=== PATIENT | male | born 1980 | race Hispanic/Latino ===

== ENCOUNTER 2018-04-03 06:55 | Day surgery (SDC) | payer OTHER ==
--- OUTSIDE RECORDS SUMMARY | 2018-04-03 06:58 | XMS REPORT ---
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
--- OUTSIDE RECORDS SUMMARY | 2018-04-03 06:58 | XMS REPORT ---
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
--- OUTSIDE RECORDS SUMMARY | 2018-04-03 06:58 | XMS REPORT ---
:1980 Author Organization eClinicalWorks Care Team Providers Name Role Phone Omar Nash Provider Role Unavailable Allergies, Adverse Reactions, Alerts Substance Reaction Event Type N.K.D.A. 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 pylori] as B96.81 Active the cause of diseases classified elsewhere Medications Medication Code Code Instructions Start End Status Dosage System Date Date Amoxicillin ND 61406099042 500 MG Orally Mar 21, Apr 04, Active 2 tablet twice daily 2017 2017 Omeprazole NDC 32391379160 20 MG Orally Mar 21, Active 1 capsule twice daily 2017 Clarithromycin ND 27560631269 500 MG Orally Mar 21Apr 04, Active 1 tablet once daily 2017 2017 Results No Known Results Summary Purpose eClinicalWorks Submission
--- OUTSIDE RECORDS SUMMARY | 2018-04-03 06:58 | XMS REPORT ---
:1980 Author Organization eClinicalWorks Care Team Providers Name Role Phone Hicks, [facility], [facility] Provider Role Unavailable Allergies, Adverse Reactions, Alerts Substance Reaction Event Type N.K.D.A. 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
--- OUTSIDE RECORDS SUMMARY | 2018-04-03 06:58 | XMS REPORT ---
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
--- OUTSIDE RECORDS SUMMARY | 2018-04-03 06:58 | XMS REPORT ---
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
--- OUTSIDE RECORDS SUMMARY | 2018-04-03 06:58 | XMS REPORT ---
:1980 Author Organization eClinicalWorks Care Team Providers Name Role Phone Omar Nash Provider Role Unavailable Allergies, Adverse Reactions, Alerts Substance Reaction Event Type N.K.D.A. 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
[2018-04-03] MEDS ORDERED: FENTANYL CITR 100 MCG/2 ML ONE (07:19)
[2018-04-03] MEDS ORDERED: MIDAZOLAM HCL 2 MG/2 ML INJ ONE (07:19)
[2018-04-03] MEDS ORDERED: PROPOFOL 200 MG/20 ML VIAL IV ONE (07:19)
[2018-04-03] MEDS ORDERED: Ringers Lactate 1,000 ML IV ONE ×2 (07:19→09:33)
[2018-04-03] MEDS ORDERED: CEFAZOLIN/SWI 1gm 1 GM/10 ML SYR ONE (07:20)
[2018-04-03] MEDS ORDERED: ROCURONIUM 50 MG/5 ML VIAL IV ONE (07:20)
[2018-04-03] MEDS ORDERED: LIDOCAINE 2% MPF 5 ML VIAL ONE (07:20)
[2018-04-03] MEDS: BUPIVACA 0.5%/EPI 0.0005%/PF 30 ML VIAL ONE ×2 (07:28→08:47)
[2018-04-03] MEDS ORDERED: DEXAMETHASONE 10 MG/ML VIAL ONE (08:48)
[2018-04-03] MEDS ORDERED: ONDANSETRON HCL 40 MG/20 ML VIAL ONE (08:49)
[2018-04-03] MEDS ORDERED: MORPHINE 10 MG/ML VIAL ONE (09:15)
[2018-04-03] MEDS ORDERED: NS 0.9% VIAL 10 ML ONE ×2 (09:15→09:48)
[2018-04-03] MEDS ORDERED: Phenylephrine HCl 10 MG/ML 1 ML VIAL ONE (09:48)
--- NOTE | 2018-04-03 10:34 | P.OP ---
Sausage Wrapper: NICOLE LARES Preoperative diagnosis: LEFT intra-Trapezius Lipoma 9x5 cm Postoperative diagnosis: LEFT intra-Trapezius Lipoma Primary procedure: Excisoin of LEFT intra-Trapezius Lipoma Anesthesia: GETA+ Local Estimated blood loss: <10cc Specimen: Lipomatous Tissue Findings: Mass was within the substance of the musle Complications: None Drain(s): ELMIRA drain Transferred to: Recovery Room Condition: Good
[2018-04-03] MEDS ORDERED: MEPERIDINE HCL 50 MG/ML AMP ONE (11:39)
--- NOTE | 2018-04-03 12:46 | OP ---
Date of Procedure: 04/03/2018 Surgeon: Omar Nash MD, Preoperative Diagnosis: Left intra-trapezius lipoma, approximately 9 cm x 5 cm. Postoperative Diagnosis: Left intra-trapezius lipoma, approximately 9 cm x 5 cm. Procedure Performed: Excision of left intra-trapezius lipoma. Anesthesia: General endotracheal plus local with 0.25% Marcaine. Estimated Blood Loss: Less than 10 cc. Specimen: Lipomatous tissue as described above. Findings: Mass within the substance of the muscle. Complications: None. Drain: 10-Kyrgyz round ELMIRA drain placed. Disposition: Transferred to recovery room in good condition. Procedure In Detail: After informed consent was obtained, patient was brought to the operating room, prepped and draped in the usual sterile fashion. After adequate anesthesia was achieved, an approxi mately 8.5 cm incision was made over the area of the left upper trapezius area, dissected down throug h the subcutaneous tissues with electrocautery to the external lipomatous tissue. This was removed t o expose the muscular layer in its entirety in the trapezius distribution. I then made an incision a fter the muscle fascicles down to the layer of the lipomatous tissue on the inferior aspec t of the trapezius muscle near the insertion of the trapezius at the rib level. I stayed out of the fascial plane and into the substance of the muscle at this time. I then dissected digitally around t he lipoma, which was into the substance of the trapezius muscle. After I circumferentially dissected this tissue, I was careful to protect the nerves as I approached from the inferior aspect of the tra pezius. The cutaneous branches from the dorsal rami C4-T6 were bluntly dissected free from this area . I dissected inferior to superior circumferentially digitally and broke up any connections into the soft tissue under direct visualization. The nerves were spared and the muscle continued to contract throughout the procedure. After the lipomatous tissue was circumferentially dissected, it was deliv ered through the inferior incision, which was approximately 1.5 cm to 2 cm in length on the inferior aspect of the trapezius muscle. I then delivered the lipomatous tissue through this and bluntly diss ected the remaining soft tissue attachments to the muscular layer deep to this until completely freed . I did this bluntly throughout the procedure with no undue dissection. The mass came out was sent off for pathologic examination. I then inspected the area for hemostasis. Electrocautery was used g ently on the posterior aspect of the trapezius muscle, and the area was copiously irrigated multiple times until completely dry. I then placed a 10-Kyrgyz round EL[place]A drain through this infra-muscular cara ne and passed it out through the incision and made a separate stab incision inferior to this to bring the drain out. It was secured to the skin using a 2-0 nylon suture and the drain was in the deep mu scular plane and the latissimus pockets. I irrigated the area once again and inspected the area for hemostasis, which was achieved. I then closed the muscular defect, closing the fascial plane over th e latissimus using a running 2-0 Vicryl suture with good approximation of the tissues. I then reappr oximated the subcutaneous layers with a 3-0 Vicryl in an interrupted fashion and closed the skin with interrupted paras after irrigating the area once again. A pressure dressing was then placed over the top of this and the bow was hooked up. The patient tolerated the procedure well without evidence of complication and transferred to the PACU in good condition. All counts were correct at the end o f the case. FAYE/RYAN Voice ID: [id number] Report ID: [id number]
== END 2018-04-03 13:30 | disposition home or self-care (01) ==
LOC: OR 06:55
PROVIDERS: ATTEND Surgery
PROC: 0KBG0ZZ Excision of Left Trunk Muscle, Open Approach (ICD-10-PCS; principal; 2018-04-03 08:30)
DX: D17.9 Benign lipomatous neoplasm, unspecified (principal)
CPT/HCPCS: 21933; 88305; J0690; J1100; J2175; J2250; J2370; J2405; J3010; 88304

== ENCOUNTER 2018-10-09 09:00 | Emergency (ER) | payer OTHER ==
--- OUTSIDE RECORDS SUMMARY | 2018-10-09 09:10 | XMS REPORT ---
:1980 Author Organization eClinicalWorks Care Team Providers Name Role Phone Hicks, [facility] Provider Role Unavailable Allergies, Adverse Reactions, Alerts [...]
--- OUTSIDE RECORDS SUMMARY | 2018-10-09 09:10 | XMS REPORT ---
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
--- OUTSIDE RECORDS SUMMARY | 2018-10-09 09:10 | XMS REPORT ---
[...] Status Dosage System Date Date Amoxicillin ND 75676674019 500 MG Orally Mar 21, Apr 04, Active 2 tablet twice daily 2017 2017 Omeprazole NDC 18147477840 20 MG Orally Mar 21, Active 1 capsule twice daily 2017 Clarithromycin ND 93229503148 500 MG Orally Mar 21Apr 04, Active 1 tablet once daily 2017 2017 Results No Known Results Summary Purpose eClinicalWorks Submission
[2018-10-09 10:12] LABS: Absolute Lymphocytes (CBC) 0.7 K/uL (0.7-4.9); Absolute Monocytes 0.4 K/uL (0.1-1.3); Absolute Neutrophil 6.4 K/uL (1.8-8.0); Basophils % 0.3 % (0-1.3); Eosinophils % 0.1 % (0-4.4); Hematocrit 45.6 % (39.6-49.0); Lymphocytes % 9.1 % (15.3-44.8); MPV 8.7 fL (7.6-11.3); Monocytes % 5.1 % (3.3-12.3); RBC Red Blood Cell Count 5.13 M/uL (4.33-5.43)
--- NOTE | 2018-10-09 10:25 | RAD REPORT ---
EXAM DESCRIPTION: CT - Stone Protocol - 10/09/2018 10:06 am CLINICAL HISTORY: Abdominal pain. Right sided pain with vomiting COMPARISON: November 2017 TECHNIQUE: Computed axial tomography of the abdomen pelvis was obtained without oral or IV contrast. Lack of IV and oral contrast limits evaluation of solid organs, bowel, and vessels. Coronal reformat yasmine images were obtained and reviewed. All CT scans are performed using dose optimization technique as appropriate and may include automated exposure control or mA/KV adjustment according to patient size. FINDINGS: A renal calculus is not seen. An ureteral calculus is not noted. A bladder calculus is not present. Fatty liver The Spleen, pancreas and adrenals appear grossly normal There is no evidence of diverticulitis. An abnormal appendix is not visualized Small right inguinal hernia contains fat. Prostate gland appears borderline enlarged IMPRESSION: Negative for a genitourinary calculus
[2018-10-09 10:26] LABS: Albumin 4.2 g/dL (3.4-5.0); Bilirubin Direct 0.2 mg/dL (0-0.2); Bilirubin Total 0.7 mg/dL (0.2-1.0); Potassium 4.1 mmol/L (3.5-5.1); Protein, Total 7.9 g/dL (6.4-8.2)
[2018-10-09] MEDS ORDERED: MEPERIDINE HCL 25 MG/0.5 ML ONE (10:45)
--- NOTE | 2018-10-09 10:45 | RAD REPORT ---
EXAM DESCRIPTION: US - Abdomen Exam Limited - 10/09/2018 10:37 am CLINICAL HISTORY: Abdominal pain. COMPARISON: None. FINDINGS: The gallbladder wall is not thickened. A gallstone is not seen. The biliary tree is normal caliber. Fatty liver IMPRESSION: Unremarkable gallbladder ultrasound.
[2018-10-09] MEDS ORDERED: ONDANSETRON 4 MG/2 ML VIAL ONE (10:46)
[2018-10-09 10:56] LABS: Urine Blood 2+ (NEG); Urine Glucose NEGATIVE (NEG); Urine Protein TRACE (NEG); Urine Specific Gravity 1.025 (1.005-1.030); Urine pH 5.5 (5.0-7.0)
[2018-10-09 11:24] LABS: Blood Morphology Comment NOT SEEN (NOT SEEN); Platelet Estimate ADEQ; Urine White Blood Cell Casts OK
--- NOTE | 2018-10-09 11:54 | RAD REPORT ---
EXAM DESCRIPTION: Laz Single View10/09/2018 11:36 am CLINICAL HISTORY: Cough COMPARISON: none FINDINGS: The lungs appear clear of acute infiltrate. The heart is borderline enlarged IMPRESSION: No acute abnormalities displayed
--- NOTE | 2018-10-09 11:59 | EDPHYS ---
Physician Documentation [facility] Name: Wanda Wise Age: 38 yrs Sex: Male : 1980 Arrival Date: 10/09/2018 Time: 09:04 Bed 14 Private MD: ED Physician Kt Aguayo HPI: 10/09 09:52 This 38 yrs old Male presents to ER via Ambulatory with complaints of Side rn Pain. 09:52 The patient complains of pain in the right mid back. The pain radiates to the abdomen. rn Onset: The symptoms/episode began/occurred this morning. Modifying factors: The symptoms are alleviated by nothing. the symptoms are aggravated by nothing. Severity of pain: At its worst the pain was moderate in the emergency department the pain has improved. The patient has experienced a previous episode. Reports woke up with right flank pain, radiates to right groin, + nausea and vomiting, + coughing, no fever or trauma. Has had kidney stone before. + difficulty urinating.. Historical: - Allergies: 09:26 No Known Allergies; hb - Home Meds: 09:26 None [Active]; hb - PMHx: 09:26 Kidney stones; Hearing Impaired; hb - PSHx: 09:26 None; hb - Immunization history:: Adult Immunizations up to date. - Social history:: Smoking status: Patient/guardian denies using tobacco. - Ebola Screening: : No symptoms or risks identified at this time. - Family history:: not pertinent. - Hospitalizations: : No recent hospitalization is reported. ROS: 09:52 Constitutional: Negative for fever, chills, and weight loss, Eyes: Negative for injury, rn pain, redness, and discharge, Cardiovascular: Negative for chest pain, palpitations, and edema, Respiratory: + cough, negative for sob Abdomen/GI: Negative for diarrhea, and constipation, + nausea/vomiting/abd pain Back: + right flank pain, no injury MS/Extremity: Negative for injury and deformity, Skin: Negative for injury, rash, and discoloration, Neuro: Negative for headache, weakness, numbness, tingling, and seizure. Exam: 09:52 Constitutional: This is a well developed, well nourished patient who is awake, alert, rn holding right side of abdomen, sitting upright Head/Face: Normocephalic, atraumatic. Eyes: Pupils equal round and reactive to light, extra-ocular motions intact. Lids and lashes normal. Conjunctiva and sclera are non-icteric and not injected. Cornea within normal limits. Periorbital areas with no swelling, redness, or edema. ENT: MMM Respiratory: No increased work of breathing, no retractions or nasal flaring. Abdomen/GI: soft, mild RUQ tenderness and right flank tenderness Back: No spinal tenderness. No costovertebral tenderness. MS/ Extremity: Pulses equal, no cyanosis. Neurovascular intact. Full, normal range of motion. Equal circumference. Neuro: Awake and alert, Motor strength 5/5 in all extremities. Sensory grossly intact. Cerebellar exam normal. Vital Signs: 09:24 BP 122 / 73; Pulse 81; Resp 16; Temp 98.7; Pulse Ox 97% on R/A; Pain 8/10; hb 10:39 BP 121 / 86; Pulse 76; Resp 16; Pulse Ox 97% ; rb1 11:27 BP 122 / 78; Pulse 62; Resp 15; Pulse Ox 97% on R/A; Pain 6/10; rb1 MDM: 09:18 Patient medically screened. rn 11:57 Differential diagnosis: nephrolithiasis, UTI. Data reviewed: vital signs, nurses notes, turn operator test result(s), radiologic studies, CT scan, plain films, ultrasound, and as a result, I will discharge patient. Counseling: I had a detailed discussion with the patient and/or guardian regarding: the historical points, exam findings, and any diagnostic results supporting the discharge/admit diagnosis, lab results, radiology results, the need for outpatient follow up, to return to the emergency department if symptoms worsen or persist or if there are any questions or concerns that arise at home. Response to treatment: the patient's symptoms have markedly improved after treatment, and as a result, I will discharge patient. Special discussion: I discussed with the patient/guardian in detail that at this point there is no indication for admission to the hospital. It is understood, however, that if the symptoms persist or worsen the patient needs to return immediately for re-evaluation. ED course: Pt improved, states noticed small black rock when urinating most recently, + hematuria but negative for stone, most likely passed a stone. . 10/09 09:34 Order name: Basic Metabolic Panel; Complete Time: 11:21 rn 10/09 09:34 Order name: CBC with Diff; Complete Time: 11:52 rn 10/09 09:34 Order name: Hepatic Function; Complete Time: 11:21 rn 10/09 09:34 Order name: Lipase; Complete Time: 11:21 rn 10/09 10:14 Order name: CBC Smear Scan; Complete Time: 11:52 EDMS 10/09 10:42 Order name: Urine Dipstick--Ancillary (enter results); Complete Time: 11:21 hb 10/09 09:34 Order name: IV Saline Lock; Complete Time: 10:22 rn 10/09 09:34 Order name: Labs collected and sent; Complete Time: 10:22 rn 10/09 09:34 Order name: CT Stone Protocol; Complete Time: 11:21 rn 10/09 09:34 Order name: XRAY Chest (1 view); Complete Time: 11:57 rn 10/09 09:34 Order name: US Abdomen Limited; Complete Time: 11:21 rn Administered Medications: 10:38 Drug: Zofran 4 mg Route: IVP; Site: right antecubital; rb1 10:57 Follow up: Response: No adverse reaction rb1 10:38 Drug: Demerol 25 mg Route: IVP; Site: right antecubital; rb1 10:57 Follow up: Response: No adverse reaction; Pain is decreased rb1 Disposition: 10/09/18 11:58 Discharged to Home. Impression: Ureterolithiasis. - Condition is Stable. - Discharge Instructions: Kidney Stones, Dietary Guidelines to Help Prevent Kidney Stones. - Medication Reconciliation Form, Thank You Letter, Antibiotic Education, Prescription Opioid Use form. - Follow up: Private Physician; When: As needed; Reason: Recheck today's complaints, Re-evaluation by your physician. - Problem is new. - Symptoms have improved. Signatures: Dispatcher [employer] [facility] Kt Aguayo MD MD rn Barber, Rebecca RN RN rb1 Love Escobedo RN RN Corrections: (The following items were deleted from the chart) 12:03 11:58 10/09/2018 11:58 Discharged to Home. Impression: Ureterolithiasis. Condition is rb1 Stable. Forms are Medication Reconciliation Form, Thank You Letter, Antibiotic Education, Prescription Opioid Use. Follow up: Private Physician; When: As needed; Reason: Recheck today's complaints, Re-evaluation by your physician. Problem is new. Symptoms have improved. rn
--- NOTE | 2018-10-09 11:59 | ER ---
Nurse's Notes [facility] Name: Wanda Wise Age: 38 yrs Sex: Male : 1980 Arrival Date: 10/09/2018 Time: 09:04 Bed 14 Private MD: Diagnosis: Ureterolithiasis Presentation: 10/09 09:23 Presenting complaint: RUQ pain that radiates to right groin, nonproductive cough, and hb N/V since this morning. Not tolerating fluids. Transition of care: patient was not received from another setting of care. Onset of symptoms was October 09, 2018. Risk Assessment: Do you want to hurt yourself or someone else? Patient reports no desire to harm self or others. Care prior to arrival: None. :23 Method Of Arrival: Ambulatory 09:23 Acuity: AALIYAH 3 hb 09:25 Initial Sepsis Screen: Does the patient meet any 2 criteria? No. Patient's initial rb1 sepsis screen is negative. Does the patient have a suspected source of infection? No. Patient's initial sepsis screen is negative. Historical: - Allergies: 09:26 No Known Allergies; hb - Home Meds: 09:26 None [Active]; hb - PMHx: 09:26 Kidney stones; Hearing Impaired; hb - PSHx: 09:26 None; hb - Immunization history:: Adult Immunizations up to date. - Social history:: Smoking status: Patient/guardian denies using tobacco. - Ebola Screening: : No symptoms or risks identified at this time. - Family history:: not pertinent. - Hospitalizations: : No recent hospitalization is reported. Screenin:25 Abuse screen: Denies threats or abuse. Nutritional screening: Difficulty to hold fluids rb1 down. Tuberculosis screening: No symptoms or risk factors identified. Fall Risk None identified. Assessment: 09:25 General: Appears uncomfortable, Behavior is calm, cooperative, Denies fever. Pain: rb1 Complains of pain in right upper quadrant Pain radiates to right groin Pain currently is 7 out of 10 on a pain scale. Neuro: Level of Consciousness is awake, alert, obeys commands, Oriented to person, place, time, situation. Cardiovascular: Capillary refill < 3 seconds is brisk in bilateral fingers. Respiratory: Airway is patent Respiratory effort is even, unlabored, Respiratory pattern is regular, symmetrical. Respiratory: Reports cough that is non-productive. GI: Reports nausea, vomiting. : No signs and/or symptoms were reported regarding the genitourinary system. EENT: Pt. is deaf.. Derm: Skin is pink, warm \T\ dry. 10:05 Reassessment: Pt. went to US. rb1 10:30 Reassessment: Patient appears in no apparent distress at this time. No changes from rb1 previously documented assessment. 11:29 Reassessment: Patient appears in no apparent distress at this time. Patient and/or rb1 family updated on plan of care and expected duration. Pain level reassessed. Patient is alert, oriented x 3, equal unlabored respirations, skin warm/dry/pink. 11:30 Reassessment: X-ray at bedside. rb1 11:55 Reassessment: Patient appears in no apparent distress at this time. No changes from rb1 previously documented assessment. Vital Signs: 09:24 BP 122 / 73; Pulse 81; Resp 16; Temp 98.7; Pulse Ox 97% on R/A; Pain 8/10; hb 10:39 BP 121 / 86; Pulse 76; Resp 16; Pulse Ox 97% ; rb1 11:27 BP 122 / 78; Pulse 62; Resp 15; Pulse Ox 97% on R/A; Pain 6/10; rb1 ED Course: 09:04 Patient arrived in ED. tw3 09:18 Kt Aguayo MD is Attending Physician. rn 09:24 Triage completed. hb 09:25 Patient has correct armband on for positive identification. Bed in low position. Call rb1 light in reach. Side rails up X 1. Pulse ox on. NIBP on. 09:26 Arm band placed on. hb 10:04 CT completed. Patient tolerated procedure well. Patient moved to CT via wheelchair. jg6 Patient moved back from CT. 10:07 CT Stone Protocol In Process Unspecified. EDMS 10:07 Oliva Bethea, RN is Primary Nurse. rb1 10:08 Inserted saline lock: 20 gauge in right antecubital area, using aseptic technique. rb1 ,using aseptic technique. IV inserted by Mary Ferguson. Blood collected. 10:26 Radiology exam delayed due to PT IN ULTRASOUND. jb2 10:37 US Abdomen Limited In Process Unspecified. EDMS 11:36 XRAY Chest (1 view) In Process Unspecified. EDMS 11:39 X-ray completed. Portable x-ray completed in exam room. Patient tolerated procedure sw well. 12:03 No provider procedures requiring assistance completed. IV discontinued, intact, rb1 bleeding controlled, No redness/swelling at site. Pressure dressing applied. Administered Medications: 10:38 Drug: Zofran 4 mg Route: IVP; Site: right antecubital; rb1 10:57 Follow up: Response: No adverse reaction rb1 10:38 Drug: Demerol 25 mg Route: IVP; Site: right antecubital; rb1 10:57 Follow up: Response: No adverse reaction; Pain is decreased rb1 Outcome: 11:58 Discharge ordered by . rn 12:03 Patient left the ED. rb1 12:03 Discharged to home ambulatory, with significant other. rb1 12:03 Condition: stable 12:03 Discharge instructions given to patient, Instructed on discharge instructions, follow up and referral plans. Demonstrated understanding of instructions, follow-up care, Prescriptions given X none Signatures: Dispatcher [employer] ED[facility] Brandyn Taylor jb2 Kt Aguayo MD MD rn Warren, Shannon sw Barber, Rebecca RN RN rb1 Love Escobedo RN RN michael Bennett, Sally tw3 Yesenia Shine6
== END 2018-10-09 12:03 | disposition home or self-care (01) ==
LOC: ER 09:00
DX: N20.1 Calculus of ureter (principal)
CPT/HCPCS: 85025; 80048; 36415; 80076; 81003; 83690; 76377; 74176; 71045; 76705; 96375; 96374; 99284; J2175; J2405

== ENCOUNTER 2019-10-02 21:05 | Emergency (ER) | payer OTHER ==
--- OUTSIDE RECORDS SUMMARY | 2019-10-02 21:12 | XMS REPORT ---
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 Problem Peptic ulcer, site unspecified, K27.9 Active unspecified as acute or chronic, without hemorrhage or perforation Assessment Need for influenza vaccination Z23 Active Medications Medication Code Code Instructions Start End Date Status Dosage System Date Omeprazole [facility] 53824938224 20 MG Orally Mar 21, Active 1 capsule twice daily 2017 Bacitracin [facility] [id number] 500 UNIT/GM Active APPLY SMALL STRIP ON LOWER EYELID OF AFFECTED EYE EVERY 4 HOURS Results No Known Results Immunizations Vaccine Administration Date Fluzone September 16, 2019 Summary Purpose eClinicalWorks Submission
--- OUTSIDE RECORDS SUMMARY | 2019-10-02 21:12 | XMS REPORT ---
:1980 Author Organization eClinicalWorks Care Team Providers Name Role Phone Enrique Hicks Provider Role Unavailable Allergies, Adverse Reactions, Alerts Substance Reaction Event Type N.K.D.A. 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 Problem Peptic ulcer, site unspecified, K27.9 Active unspecified as acute or chronic, without hemorrhage or perforation Assessment Hordeolum externum of right lower H00.012 Active eyelid Assessment Swelling of right lower eyelid H02.842 Active Medications Medication Code Code Instructions Start End Date Status Dosage System Date Bacitracin [facility] 56155419763 500 UNIT/GM Aug 25August Active 1 application Ophthalmic 2019 into the lower every 4 hours eyelid of affected eye (apply with 0.25-0.5 inch ribbon) Omeprazole [facility] [id number] 20 MG Orally Mar 21, Active 1 capsule twice daily 2017 Results No Known Results Summary Purpose eClinicalWorks Submission
[2019-10-02] MEDS ORDERED: NA CHLORIDE 0.9% 1,000 ML ONE (22:02)
[2019-10-02 22:25] LABS: Absolute Lymphocytes (CBC) 1.6 K/uL (0.7-4.9); Basophils % 0.6 % (0-1.3); Hematocrit 46.7 % (39.6-49.0); Lymphocytes % 25.1 % (15.3-44.8); MPV 9.4 fL (7.6-11.3); RBC Red Blood Cell Count 5.19 M/uL (4.33-5.43)
[2019-10-02 22:29] LABS: Urine Blood TRACE (NEG); Urine Glucose NEGATIVE (NEG); Urine Protein NEGATIVE (NEG); Urine Specific Gravity 1.025 (1.005-1.030); Urine pH 6.5 (5.0-7.0)
[2019-10-02 22:41] LABS: ALT/SGPT 87 U/L (12-78); AST/SGOT 34 U/L (15-37); Alkaline Phosphatase 102 U/L (45-117); BUN Blood Urea Nitrogen 11 mg/dL (7-18); Bicarbonate 27 mmol/L (21-32); Bilirubin Direct < 0.1 mg/dL (0-0.2); Bilirubin Total 0.4 mg/dL (0.2-1.0); Glucose Level 90 mg/dL (74-106); Lipase 112 U/L (73-393); Potassium 4.2 mmol/L (3.5-5.1); Protein, Total 7.9 g/dL (6.4-8.2); Sodium Level 140 mmol/L (136-145)
[2019-10-02] MEDS ORDERED: MORPHINE 2 MG/ML SYR ONE (23:37)
[2019-10-02] MEDS ORDERED: ONDANSETRON 4 MG/2 ML VIAL ONE (23:37)
[2019-10-02] MEDS ORDERED: FAMOTIDINE 20 MG/2 ML VIAL IV ONE (23:38)
--- NOTE | 2019-10-03 02:16 | ER ---
Nurse's Notes [facility] Name: Wanda Wise Age: 39 yrs Sex: Male : 1980 Arrival Date: 10/02/2019 Time: 21:09 Bed 27 Private MD: Diagnosis: Abdominal tenderness;Functional dyspepsia;Upper abdominal pain, unspecified Presentation: 10/01 21:50 Chief complaint: Patient states: Upper abdominal pain since today. Reports nausea and ca1 diarrhea, headache. Denies vomiting. Coronavirus screen: Patient denies fever greater than 100.4F, cough, shortness of breath, or difficulty breathing. Proceed with normal triage process. Ebola Screen: Patient negative for fever greater than or equal to 101.5 degrees Fahrenheit, and additional compatible Ebola Virus Disease symptoms Patient denies exposure to infectious person. Patient denies travel to an Ebola-affected area in the 21 days before illness onset. No symptoms or risks identified at this time. Initial Sepsis Screen: Does the patient meet any 2 criteria? No. Patient's initial sepsis screen is negative. Does the patient have a suspected source of infection? No. Patient's initial sepsis screen is negative. Risk Assessment: Do you want to hurt yourself or someone else? Patient reports no desire to harm self or others. Onset of symptoms was October 02, 2019. 21:50 Method Of Arrival: Ambulatory ca1 21:50 Acuity: AALIYAH 3 ca1 Historical: - Allergies: 21:53 No Known Allergies; ca1 - PMHx: 21:53 HEARING IMPAIRED; Kidney stones; ca1 - PSHx: 21:53 None; ca1 - Immunization history:: Adult Immunizations up to date, Flu vaccine is up to date. - Social history:: Smoking status: Patient denies any tobacco usage or history of. Screenin:30 Abuse screen: Denies threats or abuse. Denies injuries from another. Nutritional lp1 screening: No deficits noted. Tuberculosis screening: No symptoms or risk factors identified. Fall Risk None identified. Assessment: 22:00 General: Appears in no apparent distress. Behavior is calm, cooperative, appropriate lp1 for age. Pain: Complains of pain in right upper quadrant and left upper quadrant Pain currently is 6 out of 10 on a pain scale. Quality of pain is described as sharp. Neuro: Level of Consciousness is awake, alert, obeys commands, Oriented to person, place, time, situation. Cardiovascular: Patient's skin is warm and dry. Respiratory: Respiratory effort is even, unlabored. GI: Abdomen is non-distended, Bowel sounds present X 4 quads. Abdomen is tender to palpation in epigastric area and right upper quadrant Reports diarrhea. : No signs and/or symptoms were reported regarding the genitourinary system. EENT: No signs and/or symptoms were reported regarding the EENT system. Derm: Skin is pink, warm \T\ dry. Musculoskeletal: No deficits noted. 23:15 Reassessment: Patient tolerated drinking oral contrast at this time. lp1 10/02 00:00 Reassessment: Patient appears in no apparent distress at this time. Patient is alert, lp1 oriented x 3, equal unlabored respirations, skin warm/dry/pink. denies any acute pain at this time. 00:31 Reassessment: Patient to bathroom at this time. lp1 01:30 Reassessment: Patient appears in no apparent distress at this time. Patient is alert, lp1 oriented x 3, equal unlabored respirations, skin warm/dry/pink. Patient aware of waiting for CT results. 02:48 Reassessment: Patient appears in no apparent distress at this time. Patient is alert, lp1 oriented x 3, equal unlabored respirations, skin warm/dry/pink. Patient demonstrates understanding of medications prescribed and need for follow up. Vital Signs: 10/01 21:50 BP 135 / 73; Pulse 80; Resp 17 S; Temp 97.5(TE); Pulse Ox 99% on R/A; Weight 95 kg (R); ca1 Height 5 ft. 9 in. (175.26 cm) (R); 23:30 BP 134 / 79; Pulse 64; Resp 18; Pulse Ox 99% on R/A; lp1 10/02 00:31 BP 123 / 80; Pulse 76; Resp 16; Pulse Ox 100% on R/A; lp1 02:00 BP 122 / 78; Pulse 65; Resp 16; Pulse Ox 100% on R/A; lp1 10/01 21:50 Body Mass Index 30.93 (95.00 kg, 175.26 cm) ca1 ED Course: 10/01 21:09 Patient arrived in ED. ds1 21:39 Pierre Jack MD is Attending Physician. chetan 21:43 Ada Martins, ECHO is Primary Nurse. lp1 21:52 Triage completed. ca1 21:53 Arm band placed on right wrist. ca1 22:05 Initial lab(s) drawn, by me, sent to lab. Urine collected: clean catch specimen, clear. lp1 Inserted saline lock: 20 gauge in right antecubital area, using aseptic technique. Blood collected. 22:30 Patient has correct armband on for positive identification. Bed in low position. Call lp1 light in reach. Pulse ox on. NIBP on. 10/02 01:46 CT Abd/Pelvis - PO and IV Contrast In Process Unspecified. EDMS 02:16 Joseline Landry MD is Referral Physician. [facility] 02:47 No provider procedures requiring assistance completed. IV discontinued, No lp1 redness/swelling at site. Pressure dressing applied. Administered Medications: 10/01 22:05 Drug: NS 0.9% 1000 ml Route: IV; Rate: 1 bolus; Site: right antecubital; lp1 23:15 Follow up: IV Status: Completed infusion; IV Intake: 1000ml lp1 23:55 Drug: Pepcid 20 mg Route: IVP; Site: right antecubital; lp1 10/02 02:46 Follow up: Response: No adverse reaction lp1 02:46 Not Given (Hemodynamic Parameters; no pain at this time): morphine 2 mg IVP once; lp1 (PAIN>8) RASS on ADMN: Combtv4, Very Agttd3, Agttd2, Rstlss1, AlertClm0, Drwsy-1, LtSdtn-2, ModSdtn-3, DpSdtn-4, UnArsble-5 x2 02:46 Not Given (Other Intervention Used; no nausea): Zofran (Ondansetron) 4 mg IVP once; lp1 over 2 minutes Intake: 10/01 23:15 IV: 1000ml; Total: 1000ml. lp1 Outcome: 10/02 02:16 Discharge ordered by . chetan 02:47 Discharged to home ambulatory. lp1 02:47 Condition: good 02:47 Discharge instructions given to patient, Instructed on discharge instructions, follow up and referral plans. medication usage, Demonstrated understanding of instructions, follow-up care, medications, Prescriptions given X 3. 02:49 Patient left the ED. lp1 Signatures: Dispatcher [employer] Pierre Freedman MD MD cha Sanford, Demi ds1 Ada Martins RN RN lp1 Chasity Zhu RN RN ca1
--- NOTE | 2019-10-03 02:16 | EDPHYS ---
Physician Documentation [facility] Name: Wanda Wise Age: 39 yrs Sex: Male : 1980 Arrival Date: 10/02/2019 Time: 21:09 Bed 27 Private MD: VINI Physician Pierre Jack HPI: 10/01 23:08 This 39 yrs old Male presents to ER via Ambulatory with complaints of chetan Abdominal Pain, Headache. 23:08 The patient complains of pain to the forehead. The patient describes the headache as chetan aching. Onset: The symptoms/episode began/occurred just prior to arrival. Associated signs and symptoms: Pertinent positives: This patient does not have any pertinent positive signs or symptoms associated with a headache. Historical: - Allergies: 21:53 No Known Allergies; ca1 - PMHx: 21:53 HEARING IMPAIRED; Kidney stones; ca1 - PSHx: 21:53 None; ca1 - Immunization history:: Adult Immunizations up to date, Flu vaccine is up to date. - Social history:: Smoking status: Patient denies any tobacco usage or history of. ROS: 23:08 Constitutional: Negative for fever, chills, and weight loss, Eyes: Negative for injury, chetan pain, redness, and discharge, ENT: Negative for injury, pain, and discharge, Neck: Negative for injury, pain, and swelling, Cardiovascular: Negative for chest pain, palpitations, and edema, Respiratory: Negative for shortness of breath, cough, wheezing, and pleuritic chest pain, Back: Negative for injury and pain, : Negative for injury, bleeding, discharge, and swelling, MS/Extremity: Negative for injury and deformity, Skin: Negative for injury, rash, and discoloration, Neuro: Negative for headache, weakness, numbness, tingling, and seizure, Psych: Negative for depression, anxiety, suicide ideation, homicidal ideation, and hallucinations, Allergy/Immunology: Negative for hives, rash, and allergies, Endocrine: Negative for neck swelling, polydipsia, polyuria, polyphagia, and marked weight changes, Hematologic/Lymphatic: Negative for swollen nodes, abnormal bleeding, and unusual bruising. 23:08 Abdomen/GI: Positive for abdominal pain, of the epigastric area, right upper quadrant and left upper quadrant. Exam: 23:08 Constitutional: This is a well developed, well nourished patient who is awake, alert, chetan and in no acute distress. Head/Face: Normocephalic, atraumatic. Eyes: Pupils equal round and reactive to light, extra-ocular motions intact. Lids and lashes normal. Conjunctiva and sclera are non-icteric and not injected. Cornea within normal limits. Periorbital areas with no swelling, redness, or edema. ENT: Nares patent. No nasal discharge, no septal abnormalities noted. Tympanic membranes are normal and external auditory canals are clear. Oropharynx with no redness, swelling, or masses, exudates, or evidence of obstruction, uvula midline. Mucous membranes moist. Neck: Trachea midline, no thyromegaly or masses palpated, and no cervical lymphadenopathy. Supple, full range of motion without nuchal rigidity, or vertebral point tenderness. No Meningismus. Chest/axilla: Normal chest wall appearance and motion. Nontender with no deformity. No lesions are appreciated. Cardiovascular: Regular rate and rhythm with a normal S1 and S2. No gallops, murmurs, or rubs. Normal PMI, no JVD. No pulse deficits. Respiratory: Lungs have equal breath sounds bilaterally, clear to auscultation and percussion. No rales, rhonchi or wheezes noted. No increased work of breathing, no retractions or nasal flaring. Back: No spinal tenderness. No costovertebral tenderness. Full range of motion. Male : Normal genitalia with no discharge or lesions. Skin: Warm, dry with normal turgor. Normal color with no rashes, no lesions, and no evidence of cellulitis. MS/ Extremity: Pulses equal, no cyanosis. Neurovascular intact. Full, normal range of motion. Neuro: Awake and alert, GCS 15, oriented to person, place, time, and situation. Cranial nerves II-XII grossly intact. Motor strength 5/5 in all extremities. Sensory grossly intact. Cerebellar exam normal. Normal gait. Psych: Awake, alert, with orientation to person, place and time. Behavior, mood, and affect are within normal limits. 23:08 Abdomen/GI: Inspection: distension, Bowel sounds: normal, Palpation: mild abdominal tenderness, in the epigastric area, right upper quadrant and left upper quadrant, Liver: no appreciated palpable abnormalities, Hernia: not appreciated. Vital Signs: 21:50 BP 135 / 73; Pulse 80; Resp 17 S; Temp 97.5(TE); Pulse Ox 99% on R/A; Weight 95 kg (R); ca1 Height 5 ft. 9 in. (175.26 cm) (R); 23:30 BP 134 / 79; Pulse 64; Resp 18; Pulse Ox 99% on R/A; lp1 10/02 00:31 BP 123 / 80; Pulse 76; Resp 16; Pulse Ox 100% on R/A; lp1 02:00 BP 122 / 78; Pulse 65; Resp 16; Pulse Ox 100% on R/A; lp1 10/01 21:50 Body Mass Index 30.93 (95.00 kg, 175.26 cm) ca1 MDM: 10/01 21:39 Patient medically screened. [facility] 23:09 Data reviewed: vital signs, nurses notes, lab test result(s), EKG, radiologic studies, [facility] CT scan, plain films. 10/01 21:41 Order name: Basic Metabolic Panel; Complete Time: 23:06 [facility] 10/01 21:41 Order name: CBC with Diff; Complete Time: 23:06 [facility] 10/01 21:41 Order name: Creatinine for Radiology; Complete Time: 23:06 [facility] 10/01 21:41 Order name: Hepatic Function; Complete Time: 23:06 [facility] 10/01 21:41 Order name: Lipase; Complete Time: 23:06 [facility] 10/01 21:41 Order name: Urine Culture [facility] 10/01 21:41 Order name: IV Saline Lock; Complete Time: 22:13 [facility] 10/01 21:41 Order name: Labs collected and sent; Complete Time: 22:13 [facility] 10/01 22:20 Order name: Urine Dipstick--Ancillary (enter results); Complete Time: 23:06 2 10/01 23:07 Order name: CT Abd/Pelvis - PO and IV Contrast [facility] 10/01 21:41 Order name: Urine Dipstick-Ancillary (obtain specimen); Complete Time: 22:12 [facility] Administered Medications: 22:05 Drug: NS 0.9% 1000 ml Route: IV; Rate: 1 bolus; Site: right antecubital; lp1 23:15 Follow up: IV Status: Completed infusion; IV Intake: 1000ml 1 23:55 Drug: Pepcid 20 mg Route: IVP; Site: right antecubital; 1 10/02 02:46 Follow up: Response: No adverse reaction lp1 02:46 Not Given (Hemodynamic Parameters; no pain at this time): morphine 2 mg IVP once; lp1 (PAIN>8) RASS on ADMN: Combtv4, Very Agttd3, Agttd2, Rstlss1, AlertClm0, Drwsy-1, LtSdtn-2, ModSdtn-3, DpSdtn-4, UnArsble-5 x2 02:46 Not Given (Other Intervention Used; no nausea): Zofran (Ondansetron) 4 mg IVP once; lp1 over 2 minutes Disposition: 10/03/19 02:16 Discharged to Home. Impression: Abdominal tenderness, Functional dyspepsia, Upper abdominal pain, unspecified. - Condition is Stable. - Discharge Instructions: Abdominal Pain, Adult, Nausea and Vomiting, Adult, Abdominal Pain, Adult, [id number]-sg-[id number]. - Prescriptions for Bentyl 20 mg Oral Tablet - take 1 tablet by ORAL route every 6 hours As needed; 20 tablet. Pepcid 20 mg Oral Tablet - take 1 tablet by ORAL route every 12 hours for 10 days; 20 tablet. Zofran 4 mg Oral Tablet - take 1 tablet by ORAL route every 12 hours As needed; 20 tablet. - Medication Reconciliation Form, Thank You Letter, Antibiotic Education, Prescription Opioid Use form. - Follow up: Private Physician; When: 2 - 3 days; Reason: Recheck today's complaints, Continuance of care, Re-evaluation by your physician. [facility]; When: 2 - 3 days; Reason: Recheck today's complaints, Continuance of care, Re-evaluation by your physician. - Problem is new. - Symptoms have improved. Signatures: Dispatcher [employer] EDMS Pierre Jack MD MD cha Pena, Laura, RN RN lp1 Chasity Zhu RN RN ca1 Corrections: (The following items were deleted from the chart) 02:48 02:16 10/03/2019 02:16 Discharged to Home. Impression: Abdominal tenderness; Functional lp1 dyspepsia; Upper abdominal pain, unspecified. Condition is Stable. Discharge Instructions: Abdominal Pain, Adult, Nausea and Vomiting, Adult, Abdominal Pain, Adult, Pobe-sb-Lavr. Prescriptions for Bentyl 20 mg Oral Tablet - take 1 tablet by ORAL route every 6 hours As needed; 20 tablet, Pepcid 20 mg Oral Tablet - take 1 tablet by ORAL route every 12 hours for 10 days; 20 tablet, Zofran 4 mg Oral Tablet - take 1 tablet by ORAL route every 12 hours As needed; 20 tablet. and Forms are Medication Reconciliation Form, Thank You Letter, Antibiotic Education, Prescription Opioid Use. Follow up: Private Physician; When: 2 - 3 days; Reason: Recheck today's complaints, Continuance of care, Re-evaluation by your physician. Follow up: Joseline Landry; When: 2 - 3 days; Reason: Recheck today's complaints, Continuance of care, Re-evaluation by your physician. Problem is new. Symptoms have improved. chetan
[2019-10-03 02:56] VITALS: TEMP 97.5
[2019-10-03 03:01] VITALS: O2SAT 100
[2019-10-03 03:04] VITALS: BP 122/78
--- NOTE | 2019-10-03 12:08 | RAD REPORT ---
EXAM DESCRIPTION: CT - Abdomen Pelvis W Contrast - 10/03/2019 1:46 am CLINICAL HISTORY: ABD PAIN COMPARISON: None. TECHNIQUE: CT ABDOMEN PELVIS WITH IV CONTRAST on 10/02/2019 11:07 PM CDT This exam was performed according to our departmental dose-optimization program, which includes autom ated exposure control, adjustment of the mA and/or kV according to patient size and/or use of iterati ve reconstruction technique. FINDINGS: Lower lungs are clear. Abdomen: Liver is fatty in attenuation. There is no biliary dilatation. Gallbladder is normal in appe arance. The pancreas and spleen are normal in appearance. The adrenal glands and kidneys are unremark able. Abdominal aorta is normal in course and caliber without aneurysm. There is no free air. There is no r etroperitoneal adenopathy. Pelvis: There is no bowel obstruction. Urinary bladder is unremarkable. There is no free fluid. There is a small fat-containing right inguinal hernia. Appendectomy was performed. Skeleton: There are no acute osseous findings. No suspicious bony lesions. IMPRESSION: No acute inflammatory process. Electronically signed by: Alf Yost MD 10/03/2019 1:50 AM CDT Due to temporary technical issues with the PACS/Fluency reporting system, reports are being signed by the in house radiologist as a courtesy to ensure prompt reporting. The interpreting radiologist is f meily responsible for the content of the report.
== END 2019-10-03 02:48 | disposition home or self-care (01) ==
LOC: ER 21:05
DX: K30 Functional dyspepsia (principal); R10.10 Upper abdominal pain, unspecified
CPT/HCPCS: 96361; 87088; 85025; 87086; 80048; 36415; 80076; 81003; 83690; 74177; 96374; 99284; Q9967; J7030; J2270; J2405

== ENCOUNTER 2020-03-07 04:11 | Emergency (ER) | payer OTHER ==
--- OUTSIDE RECORDS SUMMARY | 2020-03-07 04:26 | XMS REPORT | Continuity of Care Document ---
:[address] [facility] [place] [place] Address [address] [place] [address] Care Team Providers Name Role Phone Unavailable Unavailable Unavailable Problems Condition Condition Condition Status Onset Resolution Last Treating Co mments Source Name Details Category Date Date Treatment Clinician Date Deaf Deaf Problem Active [facility], [facility]ism, [facility] - acquired acquired [facility] Fatty Fatty Problem Active [facility] liver liver [facility] Peptic Peptic Problem Active [facility] ulcer, ulcer, [facility] - site site [facility] unspecifie unspecifie l d, d, Outpati unspecifie unspecifie en t d as acute d as acute Cl inics or or chronic, chronic, without without hemorrhage hemorrhage or or perforatio perforatio n n History of History of Problem Active [facility] 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 Allergies, Adverse Reactions, Alerts This patient has no known allergies or adverse reactions. Medications Ordered Filled Start Stop Current Ordering Indication Dosage Frequency Signature Comments Components Source Medication Medication Date Date Medication? Clinician (SIG) Name Name Permethrin Permethrin Yes Enrique [address] [facility]02 Hicks applicatio [facility] - 00:00: n from Memoria 00 neck down l to the Outpati soles of ent feet, wast Clinics off after 8-14 hours. May repeat in 10-14 days Triamcinolo Triamcinolo Yes Enrique [address] [facility] ne ne 5-13 Hicks applicatio [facility] - Acetonide Acetonide 00:00: n Mem oria 00 l Outpati ent Clinics Omeprazole Omeprazole 2018-0 Yes Enrique [address] [facility] 9[facility]21 Hicks [facility] - 00:[facility]: [facility]oria 00 l Outpati ent Clinics Bacitracin Bacitracin Yes Enrique APPLY [facility] SMALL [facility] - STRIP ON Memoria LOWER l EYELID OF Outpati AFFECTED ent EYE EVERY Clinics 4 HOURS Immunizations Ordered Filled Immunization Date Status Comments Sourc e Immunization Name Name Benjine Fluzone 2019-09-[address] [facility] - 00:[facility]00 [facility] Outpatient [facility] Procedures This patient has no known procedures. Encounters Start End Encounter Admission Attending Care Care Encounter Source Date/Time Date/Time Type Type Clinicians Facility Department ID 2019-12-01 2019-12-01 [facility] [id number] [facility] [address] 16:30:00 16:30:00 [facility] Medicine l Medicine Outpati ent Clinics 2019-11-11 2019-11-11 [facility] [id number] 14:30:00 14:30:00 [facility] Medicine l Medicine Outpati ent Clinics 2019-11-10 2019-11-10 [facility] [id number] 14:07:00 14:07:00 [facility] Medicine l Medicine Outpati ent Clinics 2019-10-28 2019-10-28 [facility] [id number] 14:30:00 14:30:00 [facility] Medicine l Medicine Outpati ent Clinics 2019-10-28 2019-10-28 [facility] [id number] 14:30:00 14:30:00 [facility] Medicine l Medicine Outpati ent Clinics 2019-09-16 2019-09-16 [facility] [id number] 13:30:00 13:30:00 [facility] Medicine l Medicine Outpati ent Clinics 2019-08-25 2019-08-25 [facility] [id number] 15:15:00 15:15:00 [facility] l Medicine Outpati ent Clinics 2018-03-25 2018-03-25 [facility] [id number] [address] 10:30:00 10:30:00 t Specialty/U Tanisha kes - Specialty rology Mem[facility] a /Urology Clinic l Clinic Outpati ent Clinics 2018-03-21 2018-03-21 [facility] [id number] [address] 11:16:00 11:16:00 t Specialty/U Tanisha kes - Specialty rology Memori a /Urology Clinic l Clinic Outpati ent Clinics 2018-03-20 2018-03-20 [facility] [id number] [address] 11:23:00 11:23:00 t Specialty/U Tanisha kes - Specialty rology Memori a /Urology Clinic l Clinic Outpati ent Clinics 2018-03-11 2018-03-11 [facility] [id number] [address] 09:45:00 09:45:00 t Specialty/U Tanisha kes - Specialty rology Memori a /Urology Clinic l Clinic Outpati ent Clinics 2018-02-28 2018-02-28 [facility] [id number] 09:30:00 09:30:00 t [employer] [facility] Family [facility] l Medicine Outpati ent Clinics 2017-12-12 2017-12-12 [facility] [id number] [address] 11:00:00 11:00:00 t [employer] [facility] Medicine Outpati ent Clinics 2017-10-31 2017-10-31 [facility] [id number] 13:30:00 13:30:00 t [employer] [facility] Medicine Outpati ent Clinics Results This patient has no known results.
[2020-03-07 04:59] LABS: Absolute Lymphocytes (CBC) 2.5 K/uL (0.7-4.9); Basophils % 0.7 % (0-1.3); Hematocrit 46.4 % (39.6-49.0); Lymphocytes % 34.3 % (15.3-44.8); MPV 9.1 fL (7.6-11.3); RBC Red Blood Cell Count 5.24 M/uL (4.33-5.43)
[2020-03-07 05:12] LABS: ALT/SGPT 93 U/L (12-78); AST/SGOT 35 U/L (15-37); Albumin 4.1 g/dL (3.4-5.0); Alkaline Phosphatase 108 U/L (45-117); BUN Blood Urea Nitrogen 12 mg/dL (7-18); Bicarbonate 28 mmol/L (21-32); Bilirubin Direct < 0.1 mg/dL (0-0.2); Bilirubin Total 0.4 mg/dL (0.2-1.0); Glucose Level 94 mg/dL (74-106); Lipase 111 U/L (73-393); Potassium 3.6 mmol/L (3.5-5.1); Protein, Total 8.1 g/dL (6.4-8.2); Sodium Level 139 mmol/L (136-145)
[2020-03-07] MEDS ORDERED: LIDOCAINE VISCOUS 2% SOLN 15 ML UDC ONE (05:12)
[2020-03-07] MEDS ORDERED: MAGNE/ALUM HYDROXD 30 ML UCUP ONE (05:12)
[2020-03-07] MEDS ORDERED: NA CHLORIDE 0.9% 1,000 ML ONE (05:12)
--- NOTE | 2020-03-07 05:18 | EDPHYS ---
Physician Documentation [facility] Name: Wanda Wise Age: 39 yrs Sex: Male : 1980 Arrival Date: 03/07/2020 Time: 04:14 Bed 8 Private MD: Vj Hicksh ED Physician Abel Edward HPI: 03/07 05:01 This 39 yrs old Male presents to ER via Ambulatory with complaints of Flank tw4 Pain, Abdominal Pain. 05:01 The patient presents with abdominal pain. Onset: The symptoms/episode began/occurred tw4 yesterday. The symptoms do not radiate. Associated signs and symptoms: none. The symptoms are described as crampy. Modifying factors: The symptoms are alleviated by nothing, the symptoms are aggravated by movement. The patient has not experienced similar symptoms in the past. Historical: - Allergies: 04:38 No Known Allergies; mt2 - PMHx: 04:38 HEARING IMPAIRED; Kidney stones; mt2 - Immunization history:: Adult Immunizations up to date. - Social history:: Smoking status: Patient denies any tobacco usage or history of. Patient uses alcohol, occasionally. ROS: 05:01 Constitutional: Negative for fever, chills, and weight loss, Eyes: Negative for injury, tw4 pain, redness, and discharge, Cardiovascular: Negative for chest pain, palpitations, and edema, Respiratory: Negative for shortness of breath, cough, wheezing, and pleuritic chest pain, Back: Negative for injury and pain, MS/Extremity: Negative for injury and deformity, Skin: Negative for injury, rash, and discoloration, Neuro: Negative for headache, weakness, numbness, tingling, and seizure. 05:01 Abdomen/GI: Positive for abdominal pain, Negative for nausea and vomiting, nausea, vomiting, and diarrhea, nausea, vomiting, abdominal cramps, abdominal distension, anorexia, dysphagia, hematemesis, black/tarry stool, rectal pain. Exam: 05:01 Constitutional: This is a well developed, well nourished patient who is awake, alert, tw4 and in no acute distress. Head/Face: Normocephalic, atraumatic. Chest/axilla: Normal chest wall appearance and motion. Nontender with no deformity. No lesions are appreciated. Cardiovascular: Regular rate and rhythm with a normal S1 and S2. No gallops, murmurs, or rubs. Normal PMI, no JVD. No pulse deficits. Respiratory: Lungs have equal breath sounds bilaterally, clear to auscultation and percussion. No rales, rhonchi or wheezes noted. No increased work of breathing, no retractions or nasal flaring. Back: No spinal tenderness. No costovertebral tenderness. Full range of motion. MS/ Extremity: Pulses equal, no cyanosis. Neurovascular intact. Full, normal range of motion. Neuro: Awake and alert, GCS 15, oriented to person, place, time, and situation. Cranial nerves II-XII grossly intact. Motor strength 5/5 in all extremities. Sensory grossly intact. Cerebellar exam normal. Normal gait. 05:01 Abdomen/GI: Inspection: abdomen appears normal, Bowel sounds: normal, Palpation: moderate abdominal tenderness, in the left upper quadrant. Vital Signs: 04:36 BP 133 / 99; Pulse 82; Resp 16; Temp 98.2(O); Pulse Ox 97% ; Weight 95.25 kg; Pain 8/10;mt2 05:37 BP 122 / 76; Pulse 79; Resp 16; Pulse Ox 99% ; Pain 0/10; mt2 MDM: 04:51 Patient medically screened. 4 05:01 Data reviewed: vital signs, nurses notes. Data interpreted: Pulse oximetry: tw4 Interpretation: normal. Counseling: I had a detailed discussion with the patient and/or guardian regarding: the historical points, exam findings, and any diagnostic results supporting the discharge/admit diagnosis. Special discussion: I discussed with the patient/guardian in detail that at this point there is no indication for admission to the hospital. It is understood, however, that if the symptoms persist or worsen the patient needs to return immediately for re-evaluation. 03/07 04:36 Order name: Basic Metabolic Panel; Complete Time: 05:14 mt2 03/07 05:14 Interpretation: Normal except: GFR 65. 03/07 04:36 Order name: CBC with Diff; Complete Time: 05:14 mt2 03/07 05:15 Interpretation: Within normal limits. 03/07 04:36 Order name: Hepatic Function; Complete Time: 05:14 mt2 03/07 05:15 Interpretation: Normal except: A/G 1.0; GLOB 4.0; ALT 93. 4 03/07 04:36 Order name: Lipase; Complete Time: 05:14 mt2 03/07 05:15 Interpretation: Within normal limits: LIP 111. [facility] 03/07 05:27 Order name: Urine Dipstick--Ancillary (enter results) [facility] 03/07 04:36 Order name: IV Saline Lock; Complete Time: 04:36 mt2 03/07 04:36 Order name: Labs collected and sent; Complete Time: 04:36 mt2 03/07 04:36 Order name: Urine Dipstick-Ancillary (obtain specimen); Complete Time: 05:26 mt2 Administered Medications: 05:02 Drug: GI Cocktail without - (Maalox Suspension 30 ml, Lidocaine Liquid 2 % 15 mt2 ml) Route: PO; 05:36 Follow up: Response: No adverse reaction; Pain is decreased mt2 05:02 Drug: NS 0.9% 1000 ml Route: IV; Rate: 1 bolus; Site: right antecubital; mt2 05:37 Follow up: Response: No adverse reaction; IV Status: Completed infusion mt2 Disposition: 03/07/20 05:18 Discharged to Home. Impression: Gastritis, unspecified, without bleeding. - Condition is Stable. - Discharge Instructions: Gastritis, Adult. - Prescriptions for Protonix 40 mg Oral Tablet - take 1 tablet by ORAL route once daily; 30 tablet. - Medication Reconciliation Form, Thank You Letter, Antibiotic Education, Prescription Opioid Use form. - Follow up: Enrique Hicks DO; When: Upon discharge from the Emergency Department; Reason: Recheck today's complaints, Continuance of care, Re-evaluation by your physician. - Problem is new. - Symptoms have improved. Signatures: Dispatcher [employer] EDWI Abel Edward MD MD tw4 Molly Harrison RN RN mt2 Corrections: (The following items were deleted from the chart) 05:47 05:18 03/07/2020 05:18 Discharged to Home. Impression: Gastritis, unspecified, without mt2 bleeding. Condition is Stable. Forms are Medication Reconciliation Form, Thank You Letter, Antibiotic Education, Prescription Opioid Use. Follow up: Enrique Hicks; When: Upon discharge from the Emergency Department; Reason: Recheck today's complaints, Continuance of care, Re-evaluation by your physician. Problem is new. Symptoms have improved. tw4
--- NOTE | 2020-03-07 05:18 | ER ---
Nurse's Notes [facility] Name: Wanda Wise Age: 39 yrs Sex: Male : 1980 Arrival Date: 03/07/2020 Time: 04:14 Bed 8 Private MD: Enrique Hicks Diagnosis: Gastritis, unspecified, without bleeding Presentation: 03/07 04:36 Chief complaint: Patient states: USING SOFT [employer] HAND PT C/O LUQ PAIN AND EPIGASTRIC mt2 PAIN SINCE YESTERDAY. DENIES N/V IR DIARRHEA. UNABLE TO SLEEP. DENIES SOB, COUGH, OR FEVER. PT DENIES SYMPTOMS. ADMITS TO 6 BEERS YESTERDAY. Coronavirus screen: At this time, the client does not indicate any symptoms associated with coronavirus-19. Ebola Screen: No symptoms or risks identified at this time. 04:36 Method Of Arrival: Ambulatory mt2 04:39 Initial Sepsis Screen: Does the patient meet any 2 criteria? Yes Does the patient have mt2 a suspected source of infection? No. Patient's initial sepsis screen is negative. Risk Assessment: Do you want to hurt yourself or someone else? Patient reports no desire to harm self or others. Onset of symptoms was March 06, 2020. 04:39 Acuity: AALIYAH 3 mt2 Triage Assessment: 04:40 General: Appears uncomfortable, Behavior is restless. Pain: Complains of pain in chest mt2 Pain currently is 8 out of 10 on a pain scale. Quality of pain is described as sharp. EENT: No deficits noted. Neuro: No deficits noted. Cardiovascular: No deficits noted. Respiratory: No deficits noted. GI: Abdomen is distended. : No deficits noted. : No deficits noted. Derm: No deficits noted. Musculoskeletal: No deficits noted. Historical: - Allergies: 04:38 No Known Allergies; mt2 - PMHx: 04:38 HEARING IMPAIRED; Kidney stones; mt2 - Immunization history:: Adult Immunizations up to date. - Social history:: Smoking status: Patient denies any tobacco usage or history of. Patient uses alcohol, occasionally. Screenin:39 Abuse screen: Denies threats or abuse. Nutritional screening: No deficits noted. mt2 Tuberculosis screening: No symptoms or risk factors identified. Fall Risk None identified. Assessment: 04:41 GI: Bowel sounds present X 4 quads. mt2 04:43 GI: Abdomen is tender to palpation. mt2 05:37 Reassessment: Patient and/or family updated on plan of care and expected duration. Pain mt2 level reassessed. Patient is alert, oriented x 3, equal unlabored respirations, skin warm/dry/pink. Pain: Denies pain. Vital Signs: 04:36 BP 133 / 99; Pulse 82; Resp 16; Temp 98.2(O); Pulse Ox 97% ; Weight 95.25 kg; Pain 8/10;mt2 05:37 BP 122 / 76; Pulse 79; Resp 16; Pulse Ox 99% ; Pain 0/10; mt2 ED Course: 04:14 Patient arrived in ED. am2 04:15 Enrique Hicks DO is Private Physician. am2 04:17 Molly Harrison, ECHO is Primary Nurse. mt2 04:39 Inserted saline lock: 20 gauge in right antecubital area, using aseptic technique. mt2 Blood collected. 04:40 Triage completed. mt2 04:40 Patient has correct armband on for positive identification. Placed in gown. Bed in low mt2 position. Call light in reach. Side rails up X 1. 04:41 Arm band placed on. mt2 04:47 Abel Edward MD is Attending Physician. tw4 05:17 Enrique Hicks DO is Referral Physician. tw4 05:38 No provider procedures requiring assistance completed. IV discontinued, intact, mt2 bleeding controlled, No redness/swelling at site. Administered Medications: 05:02 Drug: GI Cocktail without - (Maalox Suspension 30 ml, Lidocaine Liquid 2 % 15 mt2 ml) Route: PO; 05:36 Follow up: Response: No adverse reaction; Pain is decreased mt2 05:02 Drug: NS 0.9% 1000 ml Route: IV; Rate: 1 bolus; Site: right antecubital; mt2 05:37 Follow up: Response: No adverse reaction; IV Status: Completed infusion mt2 Outcome: 05:18 Discharge ordered by . tw4 05:38 Discharged to home ambulatory. mt2 05:38 Condition: good 05:38 Discharge instructions given to patient, Instructed on discharge instructions, follow up and referral plans. medication usage, Demonstrated understanding of instructions, follow-up care, medications, Prescriptions given X 1. 05:47 Patient left the ED. mt2 Signatures: Raisa Rebolledo am2 Abel Edward MD MD tw4 Molly Harrison RN RN mt2 Corrections: (The following items were deleted from the chart) 04:43 04:36 Chief complaint: Patient states: USING [employer] PT C/O LUQ PAIN AND mt2 EPIGASTRIC PAIN SINCE YESTERDAY. DENIES N/V IR DIARRHEA. UNABLE TO SLEEP. DENIES SOB, COUGH, OR FEVER. mt2
[2020-03-07 05:48] LABS: Urine Blood NEGATIVE (NEG); Urine Glucose NEGATIVE (NEG); Urine Protein NEGATIVE (NEG); Urine Specific Gravity 1.025 (1.005-1.030); Urine pH 5.5 (5.0-7.0)
[2020-03-07 22:26] VITALS: TEMP 98.2
[2020-03-07 22:28] VITALS: BP 122/76; O2SAT 99
== END 2020-03-07 05:47 | disposition home or self-care (01) ==
LOC: ER 04:11
DX: K29.70 Gastritis, unspecified, without bleeding (principal); Z87.442 Personal history of urinary calculi
CPT/HCPCS: 85025; 80048; 36415; 80076; 81003; 83690; 96360; 99284; J7030

== ENCOUNTER 2020-03-19 15:10 | Emergency (ER) | payer OTHER ==
--- OUTSIDE RECORDS SUMMARY | 2020-03-19 15:12 | XMS REPORT | Continuity of Care Document ---
:1980 Author Organization [facility] t Address [address] [place] [address] Care Team Providers Name Role Phone Unavailable [...] [facility] Allergies, Adverse Reactions, Alerts This [...] 2019-09-[address] [facility] 00[facility]00 [facility] Procedures This patient has no known procedures. Encounters Start End Encounter Admission Attending Care Care Encounter Source Date/Time Date/Time Type Type Clinicians Facility Department ID 2019-12-01 2019-12-01 [facility] [id number] [facility] 16:30[facility]00 16:30:00 [facility] Medicine l Medicine Outpati ent Clinics 2019-11-11 2019-11-11 [facility] [id number] [facility] 14:30:00 14:30:00 [facility] Medicine l Medicine Outpati ent Clinics 2019-11-10 2019-11-10 [facility] [id number] [facility] 14:07:00 14:07:00 [employer] Medicine l Medicine Outpati ent Clinics 2019-10-28 2019-10-28 [facility] [id number] 14:30:00 14:30:00 [facility] Medicine l Medicine Outpati ent Clinics 2019-10-28 2019-10-28 [facility] [id number] [facility] 14:30:00 14:30:00 [employer] Medicine l Medicine Outpati ent Clinics 2019-09-16 2019-09-16 [facility] [id number] 13:30:00 13:30:00 [employer] Medicine l Medicine Outpati ent Clinics 2019-08-25 2019-08-25 [facility] [id number] [facility] 15:15:00 15:15:00 [employer] l Medicine Outpati ent Clinics 2018-03-25 2018-03-25 [facility] [id number] 10:30:00 10:30:00 t Specialty/U [facility] l Clinic Outpati ent Clinics 2018-03-21 2018-03-21 [facility] [id number] 11:16:00 11:16:00 t Specialty/U [facility] - [facility]Urology [facility] l Clinic Outpati ent Clinics 2018-03-20 2018-03-20 [facility] [id number] 11:23:00 11:23:00 t Specialty/U [facility] - Specialty [facility]y [facility]Urology [facility] l Clinic Outpati ent Clinics 2018-03-11 2018-03-11 [facility] [id number] 09:45:00 09:45:00 t Specialty/U Tanisha k[facility] - Specialty rology [facility]Urology Clinic l Clinic Outpati ent Clinics 2018-02-28 2018-02-28 [facility] [id number] 09:30:00 09:30:00 t [employer] [facility] l Medicine Outpati ent Clinics 2017-12-12 2017-12-12 [facility] [id number] 11:00:00 11:00:00 t [employer] [facility] Medicine Outpati ent Clinics 2017-10-31 2017-10-31 [facility] [id number] 13:30:00 13:30:00 t [employer] [facility] Medicine Outpati ent Clinics Results This patient has no known results.
--- NOTE | 2020-03-19 16:14 | ER ---
Nurse's Notes [facility] Name: Wanda Wise Age: 39 yrs Sex: Male : 1980 Arrival Date: 03/19/2020 Time: 15:15 Bed 15 [facility] MD: Diagnosis: Conjunctivitis Presentation: 03/19 15:35 Chief complaint: Patient states: Swollen L eye, itching since Saturday, had an old ca1 prescription for my R eye so started taking those (Erythromycin ointment and Pantoprazole). Coronavirus screen: Client denies travel out of the [place] in the last 14 days. At this time, the client does not indicate any symptoms associated with coronavirus-19. Ebola Screen: Patient negative for fever greater than or equal to 101.5 degrees Fahrenheit, and additional compatible Ebola Virus Disease symptoms Patient denies exposure to infectious person. Patient denies travel to an Ebola-affected area in the 21 days before illness onset. No symptoms or risks identified at this time. Initial Sepsis Screen: Does the patient meet any 2 criteria? No. Patient's initial sepsis screen is negative. Does the patient have a suspected source of infection? No. Patient's initial sepsis screen is negative. Risk Assessment: Do you want to hurt yourself or someone else? Patient reports no desire to harm self or others. Onset of symptoms was March 19, 2020. 15:35 Method Of Arrival: Ambulatory ca1 15:35 Acuity: AALIYAH 5 ca1 15:41 Note Telephonic Case Manager #[id number]. ca1 Historical: - Allergies: 15:41 No Known Allergies; ca1 - Home Meds: 15:41 pantoprazole oral oral [Active]; ca1 - PMHx: 15:41 HEARING IMPAIRED; Kidney stones; ca1 - PSHx: 15:41 None; ca1 - Immunization history:: Adult Immunizations up to date. - Social history:: Smoking status: Patient denies any tobacco usage or history of. Screenin:33 Abuse screen: Denies threats or abuse. Nutritional screening: No deficits noted. jd3 Tuberculosis screening: No symptoms or risk factors identified. Tuberculosis screening: No symptoms or risk factors identified. Fall Risk Ambulatory Aid- None/Bed Rest/Nurse Assist (0 pts). Gait- Normal/Bed Rest/Wheelchair (0 pts) Mental Status- Oriented to own ability (0 pts). Total Jay Fall Scale indicates No Risk (0-24 pts). Assessment: 16:32 General: Appears in no apparent distress. uncomfortable, Behavior is calm, cooperative, jd3 appropriate for age. Pain: Complains of pain in left eye Quality of pain is described as aching. Neuro: Level of Consciousness is awake, alert, obeys commands, Oriented to person, place, time, situation. Cardiovascular: Capillary refill < 3 seconds Patient's skin is warm and dry. Respiratory: Airway is patent Respiratory effort is even, unlabored, Respiratory pattern is regular, symmetrical. GI: No signs and/or symptoms were reported involving the gastrointestinal system. : No signs and/or symptoms were reported regarding the genitourinary system. EENT: Lid(s) w/ stye noted left eye. Derm: Skin is intact, Skin is dry, Skin is normal, Skin temperature is warm. Musculoskeletal: Circulation, motion, and sensation intact. Range of motion: intact in all extremities, Swelling present in left eye. 16:45 Reassessment: Patient appears in no apparent distress at this time. Patient and/or jd3 family updated on plan of care and expected duration. Pain level reassessed. Patient is alert, oriented x 3, equal unlabored respirations, skin warm/dry/pink. reported understanding of discharge instructions. Vital Signs: 15:35 BP 148 / 86; Pulse 88; Resp 16 S; Temp 98.1(O); Pulse Ox 99% on R/A; Weight 81.65 kg ca1 (R); Height 5 ft. 9 in. (175.26 cm); Pain 5/10; 15:35 Body Mass Index 26.58 (81.65 kg, 175.26 cm) ca1 Visual Acuity: 16:31 Left Eye Visual acuity 20/15, Pupil size 3 mm, Normal, React To Light, Reactive To jd3 Accomodation; Right Eye Visual acuity 20/15, Pupil size 3 mm, Normal, React To Light, Reactive To Accomodation; Both Eyes Visual acuity 20/15; Without Lenses; ED Course: 15:15 Patient arrived in ED. bg2 15:40 Triage completed. ca1 15:41 Arm band placed on right wrist. ca1 15:49 Pierre Schwartz PA is PHCP. cp 15:49 Pierre Jack MD is Attending Physician. cp 16:13 Lia Joy MD is Referral Physician. cp 16:15 Ze Merritt, RN is Primary Nurse. jd3 16:34 Patient has correct armband on for positive identification. Bed in low position. Call jd3 light in reach. Side rails up X 1. Pulse ox on. NIBP on. 16:45 No provider procedures requiring assistance completed. Patient did not have IV access jd3 during this emergency room visit. Administered Medications: No medications were administered Outcome: 16:13 Discharge ordered by . cp 16:45 Discharged to home ambulatory. jd3 16:45 Condition: stable 16:45 Discharge instructions given to patient, Instructed on discharge instructions, follow up and referral plans. medication usage, Demonstrated understanding of instructions, follow-up care, medications, Prescriptions given X 1. 16:46 Patient left the ED. jd3 Signatures: Iris Mullins bg2 Pierre Schwartz PA PA cp Davies, Jonathon, RN RN Chasity Nam RN RN ca1
--- NOTE | 2020-03-19 16:14 | EDPHYS ---
Physician Documentation [facility] Name: Wanda Wise Age: 39 yrs Sex: Male : 1980 Arrival Date: 03/19/2020 Time: 15:15 Bed 15 Private MD: VINI Physician Pierre Jack HPI: 03/19 16:01 This 39 yrs old Male presents to ER via Ambulatory with complaints of Eye cp Problem. 16:01 The patient is experiencing blurred vision, redness, swelling of left upper eyelid, cp clear drainage. 16:02 Onset: The symptoms/episode began/occurred 5 day(s) ago. Duration: the symptoms are cp continuous. Associated signs and symptoms: Pertinent negatives: ear ache, fever, headache, runny nose. Patient does not utilize any form of vision correction. 16:02 Patient reports he has been using previously prescribed Erythromycin eye ointment. cp Historical: - Allergies: 15:41 No Known Allergies; ca1 - Home Meds: 15:41 pantoprazole oral oral [Active]; ca1 - PMHx: 15:41 HEARING IMPAIRED; Kidney stones; ca1 - PSHx: 15:41 None; ca1 - Immunization history:: Adult Immunizations up to date. - Social history:: Smoking status: Patient denies any tobacco usage or history of. ROS: 16:03 Constitutional: Negative for fever. cp 16:03 Eyes: Positive for blurry vision, discharge, itching, pain, redness, swelling of left upper eyelid, Negative for matting. 16:03 Respiratory: Negative for cough, shortness of breath, wheezing. 16:03 Abdomen/GI: Negative for abdominal pain, nausea, vomiting, and diarrhea. 16:03 Skin: Negative for cellulitis, rash. 16:03 Neuro: Negative for headache. 16:03 All other systems are negative. Exam: 16:05 Head/Face: Normocephalic, atraumatic. cp 16:05 Constitutional: The patient appears in no acute distress, alert, awake, non-toxic, well developed, well nourished. 16:05 Eyes: Periorbital structures: appear normal, no cellulitis, no swelling, Pupils: equal, cp round, and reactive to light and accomodation, Extraocular movements: intact throughout, Conjunctiva: normal, no exudate, no injection, Lids and lashes: drainage, from the left eye, clear, edema, mild left upper lid, erythema, mild left upper lid, stye, is not appreciated, Examination of the other eye reveals no obvious gross abnormality. 16:05 ENT: External ear(s): are unremarkable, Nose: is normal, Posterior pharynx: Airway: no evidence of obstruction, patent. 16:05 Neck: Lymph nodes: no appreciated lymphadenopathy. 16:05 Chest/axilla: Inspection: normal. 16:05 Cardiovascular: Rate: normal. cp 16:05 Respiratory: the patient does not display signs of respiratory distress, Respirations: normal. 16:05 Skin: cellulitis, is not appreciated, no rash present. Vital Signs: 15:35 BP 148 / 86; Pulse 88; Resp 16 S; Temp 98.1(O); Pulse Ox 99% on R/A; Weight 81.65 kg ca1 (R); Height 5 ft. 9 in. (175.26 cm); Pain 5/10; 15:35 Body Mass Index 26.58 (81.65 kg, 175.26 cm) ca1 Visual Acuity: 16:31 Left Eye Visual acuity 20/15, Pupil size 3 mm, Normal, React To Light, Reactive To jd3 Accomodation; Right Eye Visual acuity 20/15, Pupil size 3 mm, Normal, React To Light, Reactive To Accomodation; Both Eyes Visual acuity 20/15; Without Lenses; MDM: 16:00 Patient medically screened. cp 16:00 Differential diagnosis: Foreign body in left eye. Allergic conjunctivitis in left eye. cp Infectious conjunctivitis in left eye. stye, cellulitis. 16:12 Data reviewed: vital signs, nurses notes, and as a result, I will discharge patient. 16:12 Counseling: I had a detailed discussion with the patient and/or guardian regarding: the cp historical points, exam findings, and any diagnostic results supporting the discharge/admit diagnosis, to return to the emergency department if symptoms worsen or persist or if there are any questions or concerns that arise at home. 03/19 16:00 Order name: Visual Acuity; Complete Time: 16:30 cp Administered Medications: No medications were administered Disposition: 16:20 Chart complete. 03/20 07:32 Co-signature as Attending Physician, Pierre Jack MD I agree with the assessment and chetan plan of care. Disposition: 03/19/20 16:13 Discharged to Home. Impression: Conjunctivitis. - Condition is Stable. - Discharge Instructions: Allergic Conjunctivitis, Adult. - Prescriptions for Naphcon- A 0.025-0.3 % Ophthalmic Drops - instill 1 drop by OPHTHALMIC route 2-4 times daily; 1 bottle. - Medication Reconciliation Form, Thank You Letter, Antibiotic Education, Prescription Opioid Use form. - Follow up: Lia Joy MD; When: 2 - 3 days; Reason: Recheck today's complaints. - Problem is new. - Symptoms are unchanged. Signatures: Pierre Jack MD MD cha Page, Corey, PA PA cp Davies, Jonathon, RN RN jd3 Chasity Zhu RN RN ca1 Corrections: (The following items were deleted from the chart) 03/19 16:46 16:13 03/19/2020 16:13 Discharged to Home. Impression: Conjunctivitis. Condition is jd3 Stable. Prescriptions for Naphcon-A 0.025-0.3 % Ophthalmic Drops - instill 1 drop by OPHTHALMIC route 2-4 times daily; 1 bottle. and Forms are Medication Reconciliation Form, Thank You Letter, Antibiotic Education, Prescription Opioid Use. Follow up: Lia Joy; When: 2 - 3 days; Reason: Recheck today's complaints. Problem is new. Symptoms are unchanged. cp
[2020-03-19 16:56] VITALS: BP 148/86; TEMP 98.1; O2SAT 99
== END 2020-03-19 16:46 | disposition home or self-care (01) ==
LOC: ER 15:10
DX: H10.9 Unspecified conjunctivitis (principal)
CPT/HCPCS: 99283

== ENCOUNTER 2020-06-02 15:59 | Emergency (ER) | payer OTHER ==
--- OUTSIDE RECORDS SUMMARY | 2020-06-02 16:00 | XMS REPORT | Continuity of Care Document ---
:[address] [facility] t Address [address] [place] [address] Care Team Providers Name Role Phone Unavailable Unavailable Unavailable Problems This patient has no known problems. Allergies, Adverse Reactions, Alerts This patient has [...] 00 l Outpati ent Clinics Omeprazole Omeprazole Yes Enrique [address] [facility] Out[facility] Clin[facility] Bacitracin Bacitracin Yes Enrique APPLY [facility] STRIP ON [facility] LOWER l EYELID OF Outpati AFFECTED ent EYE EVERY Clinics 4 HOURS Immunizations Ordered Filled Immunization Date Status Comments Sourc e Immunization Name Name Fluzone Fluzone 2019-09-[address] [facility]00 [facility] Procedures This patient has no known procedures. Encounters Start End Encounter Admission Attending Care Care Encounter Source Date/Time Date/Time Type Type Clinicians Facility Department ID 2020-03-22 2020-03-22 [id number] Outpat[facility] ent Clinics 2019-12-01 2019-12-01 [facility] [id number] 16:30:00 16:30:00 [facility] Medicine Outpati ent Clinics 2019-11-11 2019-11-11 [facility] [id number] [address] 14:30:00 14:30:00 t [facility] Medicine Outpati ent Clinics 2019-11-10 2019-11-10 [facility] [id number] [address] 14:07:00 14:07:00 t [facility] Medicine Outpati ent Clinics 2019-10-28 2019-10-28 [facility] [id number] 14:30:00 14:30:00 t [facility] Medicine Outpati ent Clinics 2019-10-28 2019-10-28 [facility] [id number] 14:30:00 14:30:00 t [facility] Medicine Outpati ent Clinics 2019-09-16 2019-09-16 [facility] [id number] 13:30:00 13:30:00 t [facility] Medicine Outpati ent Clinics 2019-08-25 2019-08-25 [facility] [id number] 15:15:00 15:15:00 t [facility] Medicine Outpati ent Clinics 2018-03-25 2018-03-25 [facility] [id number] 10:30:00 10:30:00 t Specialty/U T[facility]a kes - [facility] Outpati ent Clinics 2018-03-21 2018-03-21 [facility] [id number] 11:16:00 11:16:00 t Specialty/U Tanisha kes - Specialty rology [facility] /Urology Clinic l Clinic Outpati ent Clinics 2018-03-20 2018-03-20 [facility] [id number] 11:23:00 11:23:00 t Specialty/U Tanisha kes - Specialty rology [facility] /Urology Clinic l Clinic Outpati ent Clinics 2018-03-11 2018-03-11 [facility] [id number] 09:45:00 09:45:00 t Specialty/U Tanisha kes - Specialty rology [facility] /Urology Clinic l Clinic Outpati ent Clinics 2018-02-28 2018-02-28 [facility] [id number] 09:30:00 09:30:00 t [facility] Medicine Outpati ent Clinics 2017-12-12 2017-12-12 [facility] [id number] [address] 11:00:00 11:00:00 t [facility] Medicine Outpati ent Clinics 2017-10-31 2017-10-31 [facility] [id number] 13:30:00 13:30:00 t [facility] Medicine Outpati ent Clinics Results This patient has no known results.
--- OUTSIDE RECORDS SUMMARY | 2020-06-02 16:00 | XMS REPORT ---
:1980 Author Organization [facility] Address [address] [place], 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 Problem Fatty liver K76.0 Active 111300237 ALLERGIES No Known Allergies ENCOUNTERS from 1980 to 2020-03-23 Encounter Location Date Provider Diagnosis [address] [facility] Mar, Enrique Hicks Swe lling of left Family Medicine [address], eyel[place] [address] [place] [address] Hordeolum exte rnum left upper eyel id H00.014 IMMUNIZATIONS Vaccine Route Administration Date Status Fluzone IM Intramuscular September 16, 2019 Administered Kenalog (Triamcinolone) IM Intramuscular November 11, 2019 Adminis tered SOCIAL HISTORY Tobacco Use: Social History Observation Description Date Details (start date - stop date) Former Smoker Sex Assigned At : Social History Observation Description Sex Assigned At Unknown Alcohol Screen Question Answer Notes Did you have a drink containing alcohol in Yes the past year? Points 4 Interpretation Positive How often did you have 6 or more drinks on Never (0 points) one occasion in the past year? How many drinks did you have on a typical 3 or 4 (1 point) day when you were drinking in the past year? How often did you have a drink containing Two to three times per week (3 alcohol in the past year? points) Tobacco Use/Smoking Question Answer Notes Are you a former smoker REASON FOR REFERRAL No Information VITAL SIGNS Height 69 in Mar, Weight 196.9 lbs Mar, Temperature 97.6 degrees Fahrenheit Mar, BMI 29.07 kg/m2 Mar, Oximetry 97 % Mar, Respiratory Rate 16 /min Mar, Blood pressure systolic 128 mm Hg Mar, Blood pressure diastolic 78 mm Hg Mar, MEDICATIONS Medication SIG (Take, Route, Start Date End Date Status Frequency, Duration) Bacitracin 500 UNIT/GM APPLY SMALL STRIP ON LOWER Not-Taking EYELID OF AFFECTED EYE EVERY 4 HOURS for 7 Naphcon-A 0.025-0.3 % 1 drop into affected eye Active as needed Ophthalmic Four times a day Omeprazole 40 MG 1 capsule Orally Once a Mar, Not-Taking day for 14 days Bacitracin 500 UNIT/GM 1 application into the Mar,Mar, 020 Active upper eyelid of affected eye (apply with 0.25-0.5 inch ribbon) Ophthalmic every 4 hours for 10 days Permethrin 5 % 1 application from neck Ac tive down to the soles of feet, wast off after 8-14 hours. May repeat in 10-14 days Externally Once PROCEDURES No Information RESULTS No Results REASON FOR VISIT left eye swollen MEDICAL (GENERAL) HISTORY Type Description Date Medical History Deaf mutism, acquired Medical History Generalized abdominal pain Medical History Mass on back Surgical History Excision of Upper Neck/Back Mass 03/2018 Goals Section No Information Health Concerns No Information MEDICAL EQUIPMENT No Information MENTAL STATUS No Information FUNCTIONAL STATUS No Information ASSESSMENTS Encounter Date Diagnosis Notes Mar, Swelling of left eyelid (ICD-10 - H02.84 6) Mar, Hordeolum externum left upper eyelid (IC D-10 - H00.014) PLAN OF TREATMENT Medication Medication Name Sig Start Date Stop Date Bacitracin 500 UNIT/GM 1 application into the upper eyelid 2019Mar, of affected eye (apply with 0.25-0.5 inch ribbon) Ophthalmic every 4 hours for 10 days Treatment Notes Assessment Notes Clinical Notes Hordeolum externum left upper Discussed differential diagnos is eyelid with patient and . Education given. Will treat with bacitracin ointment for 7 to 10 days. Instructions and side effect panel discussed. Encouraged to maintain proper hygiene. Wash hands. If unchanged or worsen will reevaluate. Patient agreeable with plan. Discussed frontal diagnosis with patient and . Next Appt Details prn Reason: Provider Name:Enrique Hicks, 2020-11-02 0 2:30:00 PM, [address], [address], [place], [address], Provider Name:Enrique Hicks, 2020-11-02 0 2:30:00 PM, [address], [address], [place], [address], Insurance Providers Payer Name Payer Address Payer Insured Patient Coverage Cover age Phone Name Relationship to Start Date End Date Insured [facility] [address] [phone] Santos Wise [facility] [address] [phone] MEDICARE Attn Part B [id number] Santos Wise 2013 [place] Claims [address] [facility] [address]
--- NOTE | 2020-06-02 21:38 | ER ---
Nurse's Notes [facility] Name: Wanda Wise Age: 40 yrs Sex: Male : 1980 Arrival Date: 06/02/2020 Time: 16:03 Bed 19 Private MD: Diagnosis: Acute upper respiratory infection, unspecified Presentation: 06/02 16:32 Chief complaint: Patient states: Yesterday, I felt funny, some chest pain and coughing ca1 a lot. I feel like I couldn't get enough air in my throat. Cough since yesterday. I feel like there is spasm and tightening on my chest and throat area. Denies fever. Denies sore throat and chest pain at this time. Coronavirus screen: cough unrelated to allergies, Client presents with at least one sign or symptom that may indicate coronavirus-19. Standard/surgical mask placed on the client. Provider contacted for isolation considerations. Ebola Screen: Patient negative for fever greater than or equal to 101.5 degrees Fahrenheit, and additional compatible Ebola Virus Disease symptoms Patient denies exposure to infectious person. Patient denies travel to an Ebola-affected area in the 21 days before illness onset. No symptoms or risks identified at this time. Initial Sepsis Screen: Does the patient meet any 2 criteria? No. Patient's initial sepsis screen is negative. Does the patient have a suspected source of infection? No. Patient's initial sepsis screen is negative. Risk Assessment: Do you want to hurt yourself or someone else? Patient reports no desire to harm self or others. 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 Onset of symptoms was June 02, 2020. 16:32 Method Of Arrival: Ambulatory ca1 16:32 Acuity: AALIYAH 3 ca1 Triage Assessment: 21:15 General: Appears in no apparent distress. comfortable, Behavior is calm, cooperative, rr5 appropriate for age. 21:15 Respiratory: Reports cough that is Onset: The symptoms/episode began/occurred rr5 gradually, the patient has mild shortness of breath. Historical: - Allergies: 16:37 No Known Allergies; ca1 - PMHx: 16:37 HEARING IMPAIRED; Kidney stones; ca1 - PSHx: 16:37 None; ca1 - Immunization history:: Adult Immunizations up to date, Flu vaccine is not up to date. - Social history:: Smoking status: Patient/guardian denies using tobacco, the patient reports quitting approximately 10 years ago. Screenin:15 Abuse screen: Denies threats or abuse. Denies injuries from another. Nutritional rr5 screening: No deficits noted. Tuberculosis screening: No symptoms or risk factors identified. 21:15 Fall Risk None identified. Total Jay Fall Scale indicates No Risk (0-24 pts). rr5 Assessment: 21:15 General: Appears in no apparent distress. comfortable, Behavior is calm, cooperative, rr5 appropriate for age. 21:15 Pain: Denies pain. Neuro: Level of Consciousness is awake, alert, obeys commands, rr5 Oriented to person, place, time, situation. Cardiovascular: Capillary refill < 3 seconds Patient's skin is warm and dry. Rhythm is regular. Respiratory: Reports cough that is Airway is patent Respiratory effort is even, unlabored, Respiratory pattern is regular, symmetrical, GI: No signs and/or symptoms were reported involving the gastrointestinal system. : No signs and/or symptoms were reported regarding the genitourinary system. EENT: No signs and/or symptoms were reported regarding the EENT system. Derm: Skin is intact, is healthy with good turgor, Skin temperature is warm. Musculoskeletal: Circulation, motion, and sensation intact. Capillary refill < 3 seconds. 22:15 Reassessment: Patient appears in no apparent distress at this time. Patient is alert, rr5 oriented x 3, equal unlabored respirations, skin warm/dry/pink. discharge instruction given and explained using cultural link, without complaint made. Vital Signs: 16:32 BP 149 / 83; Pulse 61; Resp 18 S; Temp 97.6(TE); Pulse Ox 100% on R/A; Height 5 ft. 9 ca1 in. (175.26 cm); Pain 2/10; 21:15 BP 121 / 75; Pulse 60; Resp 17; Pulse Ox 99% ; rr5 22:20 BP 125 / 85; Pulse 69; Resp 19; Temp 98.5; Pulse Ox 99% ; rr5 ED Course: 16:03 Patient arrived in ED. ag5 16:36 Triage completed. ca1 16:37 Arm band placed on right wrist. ca1 20:49 Miguel [facility]quera PA is [facility] 20:49 Rashaad Stockton MD is Attending Physician. [facility] 21:15 Ruby, Joe, RN is Primary Nurse. rr5 21:15 Patient has correct armband on for positive identification. Bed in low position. Call rr5 light in reach. 21:15 No provider procedures requiring assistance completed. rr5 22:15 Patient did not have IV access during this emergency room visit. rr5 Administered Medications: 21:50 Drug: Decadron 10 mg Route: IM; Site: left deltoid; rr5 22:15 Follow up: Response: No adverse reaction rr5 Outcome: 21:38 Discharge ordered by MD. herr 22:15 Discharged to home ambulatory. rr5 22:15 Condition: stable 22:15 Discharge instructions given to patient, Instructed on discharge instructions, follow up and referral plans. medication usage, Demonstrated understanding of instructions, follow-up care, medications, Prescriptions given X 1. 22:20 Patient left the ED. rr5 Addendum: 06/06/2020 11:43 Addendum: COVID-19 Result: Negative result given to RN to notify pt. Attempted to i w contact pt regarding negative COVID-19 swab results. Left voice mail. 12:21 Addendum: COVID-19 Result: Negative result given to RN to notify pt. Other: i w [id number] Renetta Mak called back, pt is deaf, will notify him of results. Signatures: Miguel Mosquera PA PA jmm Williams, Irene, RN RN iw Joe Ruby, RN RN rr5 Chasity Zhu RN RN ca1 Konrad, Gil ag5 Corrections: (The following items were deleted from the chart) 06/02 16:40 16:32 Chief complaint: Patient states: Yesterday, I felt funny, some chest pain and ca1 coughing a lot. I feel like I couldn't get enough air in my throat. Cough since yesterday. I feel like there is spasm and tightening on my chest and throat area. Denies fever. ca1
--- NOTE | 2020-06-02 21:38 | EDPHYS ---
Physician Documentation [facility] Name: Wanda Wise Age: 40 yrs Sex: Male : 1980 Arrival Date: 06/02/2020 Time: 16:03 Bed 19 Private MD: ED Physician Rashaad Stockton HPI: 06/02 21:35 This 40 yrs old Male presents to ER via Ambulatory with complaints of jmm Breathing Difficulty. 21:35 The patient has shortness of breath at rest. Onset: The symptoms/episode began/occurred jmm gradually, 1 day(s) ago. Duration: The symptoms are continuous. The patient's shortness of breath is aggravated by nothing, is alleviated by nothing. Associated signs and symptoms: Pertinent positives: non-productive cough, Pertinent negatives: chest pain, productive cough, fever. Denies known exposure to covid -19. Historical: - Allergies: 16:37 No Known Allergies; ca1 - PMHx: 16:37 HEARING IMPAIRED; Kidney stones; ca1 - PSHx: 16:37 None; ca1 - Immunization history:: Adult Immunizations up to date, Flu vaccine is not up to date. - Social history:: Smoking status: Patient/guardian denies using tobacco, the patient reports quitting approximately 10 years ago. ROS: 21:35 Constitutional: Negative for fever, chills, and weight loss, Cardiovascular: Negative jmm for chest pain, palpitations, and edema. 21:35 Respiratory: Positive for cough, shortness of breath. 21:35 All other systems are negative. Exam: 21:35 Constitutional: This is a well developed, well nourished patient who is awake, alert, jmm and in no acute distress. Head/Face: atraumatic. Eyes: EOMI, no conjunctival erythema appreciated ENT: Moist Mucus Membranes Neck: Trachea midline, Supple Chest/axilla: Normal chest wall appearance and motion. Cardiovascular: Regular rate and rhythm. No edema appreciated Respiratory: Normal respirations, no respiratory distress appreciated Abdomen/GI: Non distended, soft Back: Normal ROM Skin: General appearance color normal MS/ Extremity: Moves all extremities, no obvious deformities appreciated, no edema noted to the lower extremities Neuro: Awake and alert, normal gait Psych: Behavior is normal, Mood is normal, Patient is cooperative and pleasant Vital Signs: 16:32 BP 149 / 83; Pulse 61; Resp 18 S; Temp 97.6(TE); Pulse Ox 100% on R/A; Height 5 ft. 9 ca1 in. (175.26 cm); Pain 2/10; 21:15 BP 121 / 75; Pulse 60; Resp 17; Pulse Ox 99% ; rr5 22:20 BP 125 / 85; Pulse 69; Resp 19; Temp 98.5; Pulse Ox 99% ; rr5 MDM: 21:33 Patient medically screened. [facility] 21:36 Data reviewed: vital signs, nurses notes. Counseling: I had a detailed discussion with carmenza the patient and/or guardian regarding: the historical points, exam findings, and any diagnostic results supporting the discharge/admit diagnosis, radiology results, the need for outpatient follow up, to return to the emergency department if symptoms worsen or persist or if there are any questions or concerns that arise at home. ED course: Patient is alert and non toxic in appearance in the ED. Patient is advised to follow up with pcp and otherwise given strict return precautions. PERC negative. patient understood and agrees with the plan of care. . 06/02 21:34 Order name: COVID-19 [facility] Administered Medications: 21:50 Drug: Decadron 10 mg Route: IM; Site: left deltoid; rr5 22:15 Follow up: Response: No adverse reaction rr5 Disposition: 06/03 02:07 Co-signature as Attending Physician, Rashaad Stockton MD. marco Disposition: 06/02/20 21:38 Discharged to Home. Impression: Acute upper respiratory infection, unspecified. - Condition is Stable. - Discharge Instructions: Upper Respiratory Infection, Adult, COVID-19. - Prescriptions for Albuterol Sulfate 90 mcg/actuation - inhale 1-2 puff by INHALATION route every 4-6 hours; 1 Inhaler. - Medication Reconciliation Form, Thank You Letter, Antibiotic Education, Prescription Opioid Use form. - Follow up: Private Physician; When: 2 - 3 days; Reason: Recheck today's complaints, Continuance of care, Re-evaluation by your physician. Signatures: Dispatcher [employer] EDMS Rashaad Stockton MD MD pkl Mickail, Joel, PA PA jmm Roque, Raymond, RN RN rr5 Chasity Zhu RN RN ca1 Corrections: (The following items were deleted from the chart) 06/02 22:20 21:38 06/02/2020 21:38 Discharged to Home. Impression: Acute upper respiratory rr5 infection, unspecified. Condition is Stable. Forms are Medication Reconciliation Form, Thank You Letter, Antibiotic Education, Prescription Opioid Use. Follow up: Private Physician; When: 2 - 3 days; Reason: Recheck today's complaints, Continuance of care, Re-evaluation by your physician. carmenza
[2020-06-02] MEDS ORDERED: dexAMETHasone 10 MG/ML VIAL ONE (21:54)
== END 2020-06-02 22:20 | disposition home or self-care (01) ==
LOC: ER 15:59
DX: J06.9 Acute upper respiratory infection, unspecified (principal); Z20.828 Contact with and (suspected) exposure to other viral communicable diseases
CPT/HCPCS: 96372; 99283; U0002; J1100

== ENCOUNTER 2020-09-06 14:29 | Emergency (ER) | payer OTHER ==
--- OUTSIDE RECORDS SUMMARY | 2020-09-06 14:32 | XMS REPORT | Continuity of Care Document ---
:1980 Author Organization [facility] t Address [address] [place] [address] Care Team Providers Name Role Phone Unavailable [...] May repeat in 10-14 days Triamcinolo Triamcinolo 2019-0 Yes Enrique [address] [facility] - Acetonide Acetonide 00:00: n [facility] 00 l Outpati ent Clinics Omeprazole Omeprazole 0 Yes Enrique [address] [facility] 9-21 [...] 2019-09-[address] [facility] Procedures This patient has no known procedures. Encounters Start End Encounter Admission Attending Care Care Encounter Source Date/Time Date/Time Type Type Clinicians Facility Department ID 2020-03-22 2020-03-22 [id number] Outpati ent Clinics 2019-12-01 2019-12-01 [facility] [id number] 16:30:00 16:30:00 t [facility] Medicine Outpati ent Clinics 2019-11-11 2019-11-11 [facility] [id number] 14:30:00 14:30:00 t [facility] Medicine Outpati ent Clinics 2019-11-10 2019-11-10 [facility] [id number] 14:07:00 14:07:00 t [facility] Medicine Outpati ent Clinics 2019-10-28 2019-10-28 [facility] [id number] 14[facility]30:00 14:30:00 t [facility] Medicine Outpati ent Clinics 2019-10-28 2019-10-28 [facility] [id number] 14[facility]30:00 14:30:00 t [facility] Medicine Outpati ent Clinics 2019-09-16 2019-09-16 [facility] [id number] 13:30:00 13:30:00 t [facility] Medicine Outpati ent Clinics 2019-08-25 2019-08-25 [facility] [id number] 15:15:00 15:15:00 t [facility] Medicine Outpati ent Clinics 2018-03-25 2018-03-25 [facility] [id number] [facility] 10:30:00 10:30:00 t Specialty/U Tanisha kes - Specialty rology [facility] a /Urology Clinic l Clinic Outpati ent Clinics 2018-03-21 2018-03-21 [facility] [id number] 11:16:00 11:16:00 t Specialty/U Tanisha kes - Specialty rology Mem[facility] a /Urology Clinic l Clinic Outpati ent Clinics 2018-03-20 2018-03-20 [facility] [id number] 11:23:00 11:23:00 t Specialty/U Tanisha kes - Specialty rology [facility]Urology Clinic l Clinic Outpati ent Clinics 2018-03-11 2018-03-11 [facility] [id number] 09:45:00 09:45:00 t Specialty/U Tanisha kes - Specialty rology [facility]Urology Clinic l Clinic Outpati ent Clinics 2018-02-28 2018-02-28 [facility] [id number] 09:30:00 09:30:00 t [facility] Medicine Outpati ent Clinics 2017-12-12 2017-12-12 [facility] [id number] 11:00:00 11:00:00 t [facility] Medicine Outpati ent Clinics 2017-10-31 2017-10-31 [facility] [id number] [facility] 13:30:00 13:30:00 t [facility] Medicine Outpati ent Clinics Results This patient has no known results.
[2020-09-06] MEDS ORDERED: BUPIVACAINE 0.5% PF 10 ML VIAL ONE (15:19)
--- NOTE | 2020-09-06 15:50 | EDPHYS ---
Physician Documentation [facility] Name: Wanda Wise Age: 40 yrs Sex: Male : 1980 Arrival Date: 09/06/2020 Time: 14:30 Bed 20 Private MD: ED Physician Kt Aguayo HPI: 09/06 14:48 This 40 yrs old Male presents to ER via Ambulatory with complaints of Finger jmm laceration. 14:48 The patient or guardian reports injury. Onset: The symptoms/episode began/occurred jmm acutely, just prior to arrival. Modifying factors: The symptoms are alleviated by nothing, the symptoms are aggravated by nothing. Associated signs and symptoms: Pertinent negatives: cyanosis distally, decreased sensation distally, fever, numbness distally, tingling distally, vomiting. Patient states he cut his right 2nd finger after grabbing an object in his garage. Denies other injury. Not UTD on tetanus immunization. Historical: - Allergies: 14:43 No Known Allergies; ll1 - PMHx: 14:43 HEARING IMPAIRED; Kidney stones; ll1 - PSHx: 14:43 None; ll1 - Immunization history:: Last tetanus immunization: > 10 years ago Flu vaccine is up to date. - Social history:: Smoking status: Patient denies any tobacco usage or history of. ROS: 14:48 Constitutional: Negative for fever, chills, and weight loss, Cardiovascular: Negative jmm for chest pain, palpitations, and edema, Respiratory: Negative for shortness of breath, cough, wheezing, and pleuritic chest pain. 14:48 Skin: Positive for laceration(s). 14:48 All other systems are negative. Exam: 14:48 Constitutional: This is a well developed, well nourished patient who is awake, alert, jmm and in no acute distress. Head/Face: atraumatic. Eyes: EOMI, no conjunctival erythema appreciated ENT: Moist Mucus Membranes Neck: Trachea midline, Supple Chest/axilla: Normal chest wall appearance and motion. Cardiovascular: Regular rate and rhythm. No edema appreciated Respiratory: Normal respirations, no respiratory distress appreciated Abdomen/GI: Non distended, soft Back: Normal ROM 14:48 Musculoskeletal/extremity: FROM noted to the right 2nd finger, < 2 sec cap refill, NVI. 14:48 Skin: 1.5 cm laceration noted to the right 2nd phalanx, mild bleeding. 14:48 Neuro: Orientation: is normal, Mentation: is normal, Memory: is normal. 14:48 Psych: Behavior/mood is pleasant, cooperative. Vital Signs: 14:41 BP 132 / 90; Pulse 94; Resp 17; Temp 98.7; Pulse Ox 99% ; Height 5 ft. 9 in. (175.26 ll1 cm); Pain 10/10; 15:59 BP 128 / 88; Pulse 92; Resp 20; Pulse Ox 98% on R/A; bw Laceration: 15:43 Wound Repair of 1.5cm ( 0.6in ) subcutaneous laceration to palmar aspect of middle jmm phalanx of right index finger. Distal neuro/vascular/tendon intact. Anesthesia: Digital block administered with 4 mls of 0.5% marcaine. Wound prep: Simple cleansing with betadine by va. Skin closed with 3 5-0 Prolene using simple sutures and sterile technique. Patient tolerated well. MDM: 14:41 Patient medically screened. [facility] 15:44 Data reviewed: vital signs, nurses notes. [facility] 15:47 Counseling: I had a detailed discussion with the patient and/or guardian regarding: the [facility] historical points, exam findings, and any diagnostic results supporting the discharge/admit diagnosis, the need for outpatient follow up, to return to the emergency department if symptoms worsen or persist or if there are any questions or concerns that arise at home. ED course: Patient given wound infection return precautions. Patient understood and agrees with the plan of care. . Administered Medications: No medications were administered Disposition: 16:54 Co-signature as Attending Physician, Kt Aguayo MD. rn Disposition: 09/06/20 15:50 Discharged to Home. Impression: Finger Laceration. - Condition is Stable. - Discharge Instructions: Laceration Care, Adult. - Medication Reconciliation Form, Thank You Letter, Antibiotic Education, Prescription Opioid Use form. - Follow up: Private Physician; When: 7 - 10 days; Reason: Recheck today's complaints, Continuance of care, Staple/Suture removal, Re-evaluation by your physician. Signatures: Miguel Mosquera PA PA [facility] Kt Aguayo MD MD rn Lewis, Lynsay, RN RN [place] Tg Rodriguez RN RN Corrections: (The following items were deleted from the chart) 16:11 15:50 09/06/2020 15:50 Discharged to Home. Impression: Finger Laceration. Condition is bw Stable. Forms are Medication Reconciliation Form, Thank You Letter, Antibiotic Education, Prescription Opioid Use. Follow up: Private Physician; When: 7 - 10 days; Reason: Recheck today's complaints, Continuance of care, Staple/Suture removal, Re-evaluation by your physician. carmenza
--- NOTE | 2020-09-06 15:50 | ER ---
Nurse's Notes 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 Bleeding controlled. Language line ASL int. # 13219 used for triage information. Coronavirus screen: Client denies travel out of the [place] in the last 14 days. At this time, the client does not indicate any symptoms associated with coronavirus-19. Ebola Screen: Patient denies travel to an Ebola-affected area in the 21 days before illness onset. Initial Sepsis Screen: Does the patient meet any 2 criteria? HR > 90 bpm. No. Patient's initial sepsis screen is negative. Does the patient have a suspected source of infection? Yes: Skin breakdown/wound. Risk Assessment: Do you want to hurt yourself or someone else? Patient reports no desire to harm self or others. Onset of symptoms was September 06, 2020. 14:41 Method Of Arrival: Ambulatory ll1 14:41 Acuity: AALIYAH 4 ll1 Triage Assessment: 16:02 General: Behavior is calm, cooperative, appropriate for age. bw Historical: - Allergies: 14:43 No Known Allergies; ll1 - PMHx: 14:43 HEARING IMPAIRED; Kidney stones; ll1 - PSHx: 14:43 None; ll1 - Immunization history:: Last tetanus immunization: > 10 years ago Flu vaccine is up to date. - Social history:: Smoking status: Patient denies any tobacco usage or history of. Screenin:59 Abuse screen: Denies threats or abuse. Nutritional screening: No deficits noted. bw Tuberculosis screening: No symptoms or risk factors identified. Fall Risk None identified. Assessment: 14:51 General: Appears in no apparent distress. Pain: Complains of pain in right index bw finger. Neuro: No deficits noted. Cardiovascular: No deficits noted. Respiratory: No deficits noted. GI: No deficits noted. Derm:. Musculoskeletal: lac note to right index finger. Injury Description: Laceration sustained to palmar aspect of distal phalanx of right index finger and palmar aspect of middle phalanx of right index finger a small amount of bleeding noted at this time. 15:58 Reassessment: Patient appears in no apparent distress at this time. No changes from previously documented assessment. Patient and/or family updated on plan of care and expected duration. Pain level reassessed. Patient is alert, oriented x 3, equal unlabored respirations, skin warm/dry/pink. Vital Signs: 14:41 BP 132 / 90; Pulse 94; Resp 17; Temp 98.7; Pulse Ox 99% ; Height 5 ft. 9 in. (175.26 ll1 cm); Pain 10/10; 15:59 BP 128 / 88; Pulse 92; Resp 20; Pulse Ox 98% on R/A; bw ED Course: 14:30 Patient arrived in ED. mr 14:33 [facility] 14:33 Kt Aguayo MD is Attending Physician. [facility] 14:43 Triage completed. 1 14:43 Arm band placed on Patient placed in an exam room, on a stretcher. 1 14:50 Tg Rodriguez, ECHO is Primary Nurse. 15:59 Patient has correct armband on for positive identification. Call light in reach. 15:59 No provider procedures requiring assistance completed. Patient did not have IV access bw during this emergency room visit. Administered Medications: No medications were administered Outcome: 15:50 Discharge ordered by MD. [facility] 15:59 Discharged to home ambulatory. 15:59 Condition: stable 15:59 Discharge instructions given to patient. 16:11 Patient left the ED. 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 It ll1 slipped out of his hand and lacerated R hand 2nd digit. Bleeding controlled. ll1
[2020-09-07 13:30] VITALS: TEMP 98.7
[2020-09-07 13:31] VITALS: BP 128/88; O2SAT 98
== END 2020-09-06 16:11 | disposition home or self-care (01) ==
LOC: ER 14:29
PROC: 0JQJ0ZZ Repair Right Hand Subcutaneous Tissue and Fascia, Open Approach (ICD-10-PCS; principal; 2020-09-06)
DX: S61.210A Laceration without foreign body of right index finger without damage to nail, initial encounter (principal); W26.9XXA Contact with unspecified sharp object(s), initial encounter; Y93.89 Activity, other specified; Y92.89 Other specified places as the place of occurrence of the external cause
CPT/HCPCS: 99281

== ENCOUNTER 2020-09-13 16:48 | Emergency (ER) | payer OTHER ==
--- OUTSIDE RECORDS SUMMARY | 2020-09-13 16:51 | XMS REPORT | Continuity of Care Document ---
:1980 Author Organization [facility] t Address [address] [place] [address] Care Team Providers Name Role Phone Unavailable [...] 2019-09-[address] [facility] - 00:00:00 [facility] Procedures This patient has no known procedures. Encounters Start End Encounter Admission Attending Care Care Encounter Source Date/Time Date/Time Type Type Clinicians Facility Department ID 2020-03-22 2020-03-22 Outpatient [facility] [id number] [facility] 2019-12-01 2019-12-01 [facility] [id number] 16:30[facility] 16:30:00 t [facility] Medicine Outpati ent Clinics 2019-11-11 2019-11-11 [facility] [id number] 14:30:00 14:30:00 t [employer] Medicine Outpati ent Clinics 2019-11-10 2019-11-10 [facility] [id number] 14:07:00 14:07:00 t [employer] [facility] Medicine Outpati ent Clinics 2019-10-28 2019-10-28 [facility] [id number] 14:30:00 14:30:00 t [employer] [facility] [facility] Medicine Outpati ent Clinics 2019-10-28 2019-10-28 [facility] [id number] 14[facility]30:00 14:30:00 t [employer] Medicine Outpati ent Clinics 2019-09-16 2019-09-16 [facility] [id number] 13:30:00 13:30:00 t [employer] Medicine Outpati ent Clinics 2019-08-25 2019-08-25 [facility] [id number] 15:15:00 15:15:00 t [employer] Medicine Outpati ent Clinics 2018-03-25 2018-03-25 [facility] [id number] 10:30:00 10:30:00 t Specialty/U Tanisha kes - Specialty rology [facility] a [facility]rology [facility] l Clinic Outpati ent Clinics 2018-03-21 2018-03-21 [facility] [id number] 11:16:00 11:16:00 t Specialty/U Tanisha kes - Specialty rology [facility] Outpati ent Clinics 2018-03-20 2018-03-20 [facility] [id number] 11:23:00 11:23:00 t Specialty/U Tanisha kes - Specialty rology [facility] Outpati ent Clinics 2018-03-11 2018-03-11 [facility] [id number] 09:45:00 09:45:00 t Specialty/U Tanisha kes - Specialty rology [facility] Clinic Outpati ent Clinics 2018-02-28 2018-02-28 [facility] [id number] 09:30:00 09:30:00 t Gotcha Ninj[facility] Medicine Outpati ent Clinics 2017-12-12 2017-12-12 [facility] [id number] 11:00:00 11:00:00 t [employer]cha [facility] Medicine Outpati ent Clinics 2017-10-31 2017-10-31 [facility] [id number] [facility] 13:30:00 13:30:00 t [employer] [facility] Medicine Outpati ent Clinics Results This patient has no known results.
--- NOTE | 2020-09-13 17:55 | EDPHYS ---
Physician Documentation [facility] Name: Wanda Wise Age: 40 yrs Sex: Male : 1980 Arrival Date: 09/13/2020 Time: 16:53 Bed Waiting Private MD: ED Physician Kit Munoz HPI: 09/13 17:49 This 40 yrs old Male presents to ER via Ambulatory with complaints of Suture cp Removal. 17:49 The patient has sutures on the right index finger. Previous treatment: The patient was cp initially treated on September 06, 2020, the care was rendered at [facility], Treatment type: The patient's original treatment included sutures. Sutures/paras progress: The patient has no c/o's. The wound is well-healing with no redness, swelling, discharge, or dehiscence reported. Historical: - Allergies: 17:45 No Known Allergies; ll1 - PMHx: 17:45 HEARING IMPAIRED; Kidney stones; ll1 - PSHx: 17:45 None; ll1 - Immunization history:: Last tetanus immunization: up to date. - Social history:: Smoking status: Patient denies any tobacco usage or history of. ROS: 17:52 All other systems are negative. cp Exam: 17:52 Skin: Wound recheck: Suture laceration closure: the wound is healing well, the edges cp are well approximated, no evidence of dehiscence, no drainage, no erythema, no swelling, noted to middle phalanx jones side right index finger. Vital Signs: 17:45 BP 133 / 66; Pulse 75; Resp 16; Temp 97.3; Pulse Ox 98% ; Pain 0/10; ll1 MDM: 17:55 Patient medically screened. cp 17:55 Data reviewed: vital signs, nurses notes, and as a result, I will discharge patient. cp 17:55 Counseling: I had a detailed discussion with the patient and/or guardian regarding: the cp historical points, exam findings, and any diagnostic results supporting the discharge/admit diagnosis, to return to the emergency department if symptoms worsen or persist or if there are any questions or concerns that arise at home. Administered Medications: No medications were administered Disposition: 18:00 Chart complete. cp 09/14 08:13 Co-signature as Attending Physician, Kit Munoz MD I agree with the assessment and kdr plan of care. Disposition: 09/13/20 17:55 Discharged to Home. Impression: Encounter for removal of sutures - right index finger. - Condition is Stable. - Discharge Instructions: Suture Removal, Care After. - Medication Reconciliation Form, Thank You Letter, Antibiotic Education, Prescription Opioid Use form. - Follow up: Private Physician; When: As needed; Reason: Worsening of condition. - Problem is new. - Symptoms have improved. Signatures: Kit Munoz MD MD kdr Pierre Schwartz PA PA cp Briseida Rosario, RN RN ll1 Corrections: (The following items were deleted from the chart) 09/13 17:54 17:53 All other systems are negative, cp cp 17:57 17:55 09/13/2020 17:55 Discharged to Home. Impression: Encounter for removal of sutures ll1 - right index finger. Condition is Stable. Forms are Medication Reconciliation Form, Thank You Letter, Antibiotic Education, Prescription Opioid Use. Follow up: Private Physician; When: As needed; Reason: Worsening of condition. Problem is new. Symptoms have improved. cp
--- NOTE | 2020-09-13 17:55 | ER ---
Nurse's Notes [facility] Name: Wanda Wise Age: 40 yrs Sex: Male : 1980 Arrival Date: 09/13/2020 Time: 16:53 Bed Waiting Private MD: Diagnosis: Encounter for removal of sutures-right index finger Presentation: 09/13 17:45 Chief complaint: Patient states: Needs stitches removed R hand 2nd digit. No pain or ll1 fever. Coronavirus screen: Client denies travel out of the [place] in the last 14 days. At this time, the client does not indicate any symptoms associated with coronavirus-19. Ebola Screen: Patient denies travel to an Ebola-affected area in the 21 days before illness onset. Initial Sepsis Screen: Does the patient have a suspected source of infection? Yes: Skin breakdown/wound. Risk Assessment: Do you want to hurt yourself or someone else? Patient reports no desire to harm self or others. Onset of symptoms was September 06, 2020. 17:45 Method Of Arrival: Ambulatory ll1 17:45 Acuity: AALIYAH 5 ll1 18:45 Initial Sepsis Screen: Does the patient meet any 2 criteria? No. Patient's initial ll1 sepsis screen is negative. Triage Assessment: 17:51 General: Appears in no apparent distress. Behavior is calm, cooperative, appropriate sv for age. Pain: Denies pain. Derm: stitches removed from R hand 2nd digit by Jani Schwartz. Tolerated well. Historical: - Allergies: 17:45 No Known Allergies; ll1 - PMHx: 17:45 HEARING IMPAIRED; Kidney stones; ll1 - PSHx: 17:45 None; ll1 - Immunization history:: Last tetanus immunization: up to date. - Social history:: Smoking status: Patient denies any tobacco usage or history of. Screenin:45 Abuse screen: Denies threats or abuse. Nutritional screening: No deficits noted. ll1 Tuberculosis screening: No symptoms or risk factors identified. Fall Risk Total Jay Fall Scale indicates No Risk (0-24 pts). Assessment: 17:55 Reassessment: No changes from previously documented assessment. Patient and/or family ll1 updated on plan of care and expected duration. Pain level reassessed. Vital Signs: 17:45 BP 133 / 66; Pulse 75; Resp 16; Temp 97.3; Pulse Ox 98% ; Pain 0/10; ll1 ED Course: 16:53 Patient arrived in ED. mr 17:10 Pierre Schwartz PA is PHCP. cp 17:10 Kit Munoz MD is Attending Physician. cp 17:44 Arm band placed on. ll1 17:45 No provider procedures requiring assistance completed. Patient did not have IV access ll1 during this emergency room visit. 17:46 Triage completed. ll1 17:57 Patient has correct armband on for positive identification. Bed in low position. Call ll1 light in reach. Side rails up X 1. Cardiac monitoring not applicable on this patient. Administered Medications: No medications were administered Outcome: 17:55 Discharge ordered by . cp 17:57 Patient left the ED. ll1 17:57 Discharged to home ambulatory. ll1 17:57 Condition: stable 17:57 Discharge instructions given to patient, Instructed on discharge instructions, follow up and referral plans. wound care, Demonstrated understanding of instructions, follow-up care, wound care. Signatures: Bridgette Dawn, RN Sofia Grewal mr Pierre Schwartz PA PA cp Lewis, Lynsay, RN RN [facility]
[2020-09-13 18:13] VITALS: BP 133/66; TEMP 97.3; O2SAT 98
== END 2020-09-13 17:57 | disposition home or self-care (01) ==
LOC: ER 16:48
DX: Z48.02 Encounter for removal of sutures (principal)
CPT/HCPCS: 99281

== ENCOUNTER 2020-11-16 06:27 | Emergency (ER) | payer OTHER ==
--- OUTSIDE RECORDS SUMMARY | 2020-11-16 06:30 | XMS REPORT | Continuity of Care Document ---
:1980 Author Organization [facility] t Address [address] [place] [address] Care Team Providers Name Role Phone Unavailable [...] in 10-14 days Triamcinolo Triamcinolo 2019-0 Yes [place] [address] [facility] [facility] ne ne 5-13 [place] [...] 2019-09-[address] [facility]00 [facility] Outpatient Clin[facility] Procedures This patient has no known procedures. Encounters Start End Encounter Admission Attending Care Care Encounter Source Date/Time Date/Time Type Type Clinicians Facility Department ID 2020-11-15 2020-11-15 Outpatient [facility] [id number] [facility] 2020-03-22 2020-03-22 Outpatient [facility] [id number] [facility] 2019-12-01 2019-12-01 [facility] [id number] 16:30:00 16:30:[address] [facility] Medicine Outpati ent Clinics 2019-11-11 2019-11-11 [facility] [id number] 14:30:00 14:30:00 [employer] [facility] Medicine Outpati ent Clinics 2019-11-10 2019-11-10 [facility] [id number] 14:07:00 14:07:[address] [facility] Medicine Medicine Outpati ent Clinics 2019-10-28 2019-10-28 [facility] [id number] 14:30:00 14:30:00 t [employer] [facility] Medicine Outpati ent Clinics 2019-10-28 2019-10-28 [facility] [id number] [facility] 14:30:00 14:30:00 t [employer] [facility] Medicine Outpati ent Clinics 2019-09-16 2019-09-16 [facility] [id number] 13:30:00 13:30:00 t [employer] [facility] Medicine Outpati ent Clinics 2019-08-25 2019-08-25 [facility] [id number] 15:15:00 15:15:00 t [employer] [facility] Medicine Outpati ent Clinics 2018-03-25 2018-03-25 [facility] [id number] 10:30:00 10:30:00 t Specialty/U Tanisha kes - Specialty rology [facility] Outpati ent Clinics 2018-03-21 2018-03-21 [facility] [id number] 11:16:00 11:16:00 t Specialty/U Tanisha kes - Specialty rology [facility] Out[facility] ent Clinics 2018-03-20 2018-03-20 [facility] [id number] 11:23:00 11:23:00 t Specialty/U Tanisha kes - Specialty rology [facility] Out[facility] ent Clinics 2018-03-11 2018-03-11 [facility] [id number] 09:45:00 09:45:00 t Specialty/U Tanisha kes - Specialty rology [facility] Outpati ent Clinics 2018-02-28 2018-02-28 [facility] [id number] 09:30:00 09:30:00 t [employer] [facility] Outpati ent Clinics 2017-12-12 2017-12-12 [facility] [id number] [facility] 11:00:00 11:00:00 t [employer] [facility] Outpati ent Clinics 2017-10-31 2017-10-31 [facility] [id number] [facility] 13:30:00 13:30:00 t [employer] [facility] Outpati ent Clinics Results This patient has no known results.
[2020-11-16] MEDS ORDERED: METOCLOPRAMIDE 10 MG/2mL INJ ONE (07:35)
[2020-11-16] MEDS ORDERED: NA CHLORIDE 0.9% 1,000 ML ONE (07:35)
[2020-11-16] MEDS ORDERED: NA CHLORIDE 0.9% 50 ML ONE (07:35)
--- NOTE | 2020-11-16 07:47 | RAD REPORT ---
EXAM DESCRIPTION: CT - Head Brain Wo Cont - 11/16/2020 7:31 am CLINICAL HISTORY: HEADACHE COMPARISON: No comparisonsNo comparisons TECHNIQUE: Axial 5 mm thick images of the head were obtained without IV contrast. All CT scans are performed using dose optimization technique as appropriate and may include automated exposure control or mA/KV adjustment according to patient size. FINDINGS: No intracranial hemorrhage, mass, edema or shift of mid-line structures. No acute infarcti on changes seen. No abnormal extra-axial fluid collections. Ventricles are normal. A few punctate misha cifications are present not of acute clinical significance. These could be the sequela of old trauma or possibly old cysticercosis infection. Mastoid air cells and visualized portions of the paranasal sinuses are clear. No acute bony findings. No globe or orbital content abnormality seen. IMPRESSION: Negative non-contrast CT head examination for acute or significant finding.
[2020-11-16] MEDS ORDERED: ONDANSETRON 4 MG/2 ML VIAL ONE (08:15)
[2020-11-16] MEDS ORDERED: KETOROLAC 30 MG/ML INJ ONE (08:35)
--- NOTE | 2020-11-16 09:20 | ER ---
Nurse's Notes [facility] Name: Wanda Wise Age: 40 yrs Sex: Male : 1980 Arrival Date: 11/16/2020 Time: 06:35 Bed 20 Private MD: Diagnosis: Headache Presentation: 11/16 06:47 Chief complaint: Patient states: I am having horrible headache started yesterday and rr5 had a blurry vision while i was driving. went to my doctor prescribed medication (excedrin) but the pain did not went away. denies fever, nausea/ vomiting. Coronavirus screen: Client denies travel out of the [place] in the last 14 days. At this time, the client does not indicate any symptoms associated with coronavirus-19. Ebola Screen: Patient negative for fever greater than or equal to 101.5 degrees Fahrenheit, and additional compatible Ebola Virus Disease symptoms. Initial Sepsis Screen: Does the patient meet any 2 criteria? No. Patient's initial sepsis screen is negative. Does the patient have a suspected source of infection? No. Patient's initial sepsis screen is negative. Risk Assessment: Do you want to hurt yourself or someone else? Patient reports no desire to harm self or others. Onset of symptoms was November 15, 2020. 06:47 Method Of Arrival: Ambulatory rr5 06:47 Acuity: AALIYAH 3 rr5 Triage Assessment: 06:54 Headache History: Denies prior headaches. General: Appears in no apparent distress. ak2 Behavior is calm, cooperative. Pain: Pain currently is 6 out of 10 on a pain scale. Pain began 2-3 days ago. Also complains of no other associated symptoms. Neuro: No deficits noted. Historical: - Allergies: 06:51 No Known Allergies; rr5 - Home Meds: 06:51 None [Active]; rr5 - PMHx: 06:51 HEARING IMPAIRED; Kidney stones; rr5 - PSHx: 06:51 None; rr5 - Immunization history:: Adult Immunizations up to date. - Social history:: Smoking status: unknown Patient uses alcohol, weekly. - Family history:: not pertinent. - Hospitalizations: : No recent hospitalization is reported. Screenin:53 Abuse screen: Denies threats or abuse. Denies injuries from another. Nutritional ak2 screening: No deficits noted. Tuberculosis screening: No symptoms or risk factors identified. Fall Risk None identified. Assessment: 07:29 General: Appears in no apparent distress. Behavior is calm, cooperative, appropriate ll1 for age. Pain: Complains of pain in head Pain currently is 9 out of 10 on a pain scale. Quality of pain is described as aching. Neuro: Level of Consciousness is awake, alert, obeys commands, Oriented to person, place, time, situation, Appropriate for age [employer] are equal bilaterally Moves all extremities. Full function Gait is steady, Speech is normal, Facial symmetry appears normal, Pupils are PERRLA, Reports blurred vision headache. Cardiovascular: No deficits noted. Respiratory: No deficits noted. 08:30 Reassessment: No changes from previously documented assessment. Patient and/or family ll1 updated on plan of care and expected duration. Pain level reassessed. Patient states feeling better. 09:30 Reassessment: No changes from previously documented assessment. Patient and/or family ll1 updated on plan of care and expected duration. Pain level reassessed. Patient denies pain at this time. Patient states feeling better. Patient states symptoms have improved. Vital Signs: 06:47 BP 140 / 97; Pulse 96; Resp 16; Temp 98.5; Pulse Ox 98% ; Weight 87.54 kg; Height 5 ft. rr5 9 in. (175.26 cm); Pain 9/10; 07:35 BP 129 / 88; Pulse 88; Resp 16; Pulse Ox 97% on R/A; ll1 08:30 BP 109 / 62; Pulse 73; Resp 16; Pulse Ox 97% on R/A; ll1 09:36 BP 126 / 81; Pulse 75; Resp 17; Pulse Ox 98% on R/A; Pain 0/10; ll1 06:47 Body Mass Index 28.50 (87.54 kg, 175.26 cm) rr5 [place] Coma Score: 09:17 Eye Response: spontaneous(4). Verbal Response: oriented(5). Motor Response: obeys rn commands(6). Total: 15. ED Course: 06:35 Patient arrived in ED. am4 06:51 Triage completed. rr5 06:51 Arm band placed on right wrist. rr5 06:52 Emmanuel Chun is Primary Nurse. ak2 06:53 No apparent distress. ak2 06:53 Patient has correct armband on for positive identification. ak2 06:53 No provider procedures requiring assistance completed. ak2 07:01 Kt Aguayo MD is Attending Physician. rn 07:15 Inserted saline lock: 22 gauge in right antecubital area, using aseptic technique. ll1 09:36 IV discontinued, intact, bleeding controlled, No redness/swelling at site. Pressure ll1 dressing applied. Administered Medications: 07:27 Drug: NS 0.9% 1000 ml Route: IV; Rate: 1000 ml; Site: right antecubital; ll1 09:01 Follow up: Response: No adverse reaction; IV Status: Completed infusion; IV Intake: ll1 1000ml 07:27 Drug: Reglan (metoCLOPramide) 10 mg Route: IVP; Site: right antecubital; ll1 08:22 Follow up: Response: No adverse reaction; RASS: Alert and Calm (0) ll1 08:01 Drug: Zofran (Ondansetron) 4 mg Route: IVP; Site: right antecubital; ll1 08:22 Follow up: Response: No adverse reaction; Nausea is decreased ll1 08:22 Drug: TORadol (ketorolac) 30 mg Route: IVP; Site: right antecubital; ll1 08:56 Follow up: Response: No adverse reaction ll1 Intake: 09:01 IV: 1000ml; Total: 1000ml. ll1 Outcome: 09:19 Discharge ordered by . rn 09:37 Discharged to home ambulatory. ll1 09:37 Condition: stable 09:37 Discharge instructions given to patient, Instructed on discharge instructions, follow up and referral plans. Demonstrated understanding of instructions, follow-up care. 09:37 Patient left the ED. ll1 Signatures: Kt Aguayo MD MD rn Roque, Raymond, RN RN rr5 Briseida Rosario RN RN ll1 [facility]
--- NOTE | 2020-11-16 09:20 | EDPHYS ---
Physician Documentation [facility] Name: Wanda Wise Age: 40 yrs Sex: Male : 1980 Arrival Date: 11/16/2020 Time: 06:35 Bed 20 Private MD: ED Physician Kt Aguayo HPI: 11/16 07:16 This 40 yrs old Male presents to ER via Ambulatory with complaints of Headache.rn 07:16 The patient complains of pain to the top of head and forehead. The patient describes rn the headache as aching. Onset: The symptoms/episode began/occurred 2 day(s) ago. Associated signs and symptoms: The patient has no apparent associated signs or symptoms, Pertinent negatives: altered mental status, fever, neck stiffness, rash, vision loss, vomiting, weakness, vertigo. Severity of symptoms: At its worst the pain was moderate, in the emergency department the pain has improved. The symptoms are alleviated by nothing. the symptoms are aggravated by nothing. The patient has not experienced similar symptoms in the past. The patient has been recently seen by a physician:. REports 2 days of headache, no fever, no trauma, no neck stiffness. Seen by PCP, told to take OTC medication, not helping, a little improved today. No focal weakness or numbness. Historical: - Allergies: 06:51 No Known Allergies; rr5 - Home Meds: 06:51 None [Active]; rr5 - PMHx: 06:51 HEARING IMPAIRED; Kidney stones; rr5 - PSHx: 06:51 None; rr5 - Immunization history:: Adult Immunizations up to date. - Social history:: Smoking status: unknown Patient uses alcohol, weekly. - Family history:: not pertinent. - Hospitalizations: : No recent hospitalization is reported. ROS: 07:16 Constitutional: Negative for fever, chills, and weight loss, Eyes: Negative for injury, rn pain, redness, and discharge, Neck: Negative for injury, pain, and swelling, Cardiovascular: Negative for chest pain, palpitations, and edema, Respiratory: Negative for shortness of breath, cough, wheezing, and pleuritic chest pain, Abdomen/GI: Negative for abdominal pain, nausea, vomiting, diarrhea, and constipation, Back: Negative for injury and pain, MS/Extremity: Negative for injury and deformity, Skin: Negative for injury, rash, and discoloration, Neuro: Negative for weakness, numbness, tingling, and seizure. Exam: 07:16 Constitutional: This is a well developed, well nourished patient who is awake, alert, rn and in no acute distress. Head/Face: Normocephalic, atraumatic. Eyes: Pupils equal round and reactive to light, extra-ocular motions intact. Lids and lashes normal. Conjunctiva and sclera are non-icteric and not injected. Cornea within normal limits. Periorbital areas with no swelling, redness, or edema. Neck: Trachea midline, no masses palpated, and no cervical lymphadenopathy. Supple, full range of motion without nuchal rigidity, or vertebral point tenderness. No Meningismus. Cardiovascular: Regular rate and rhythm. No pulse deficits. Respiratory: No increased work of breathing, no retractions or nasal flaring. Skin: Warm, dry with normal turgor. Normal color with no rashes, no lesions, and no evidence of cellulitis. MS/ Extremity: Pulses equal, no cyanosis. Neurovascular intact. Full, normal range of motion. Equal circumference. Neuro: Awake and alert, GCS 15, hearing impaired, does not speak, uses sign language, responds to all questions. Cranial nerves II-XII grossly intact. Motor strength 5/5 in all extremities. Sensory grossly intact. Cerebellar exam normal. Vital Signs: 06:47 BP 140 / 97; Pulse 96; Resp 16; Temp 98.5; Pulse Ox 98% ; Weight 87.54 kg; Height 5 ft. rr5 9 in. (175.26 cm); Pain 9/10; 07:35 BP 129 / 88; Pulse 88; Resp 16; Pulse Ox 97% on R/A; ll1 08:30 BP 109 / 62; Pulse 73; Resp 16; Pulse Ox 97% on R/A; ll1 09:36 BP 126 / 81; Pulse 75; Resp 17; Pulse Ox 98% on R/A; Pain 0/10; ll1 06:47 Body Mass Index 28.50 (87.54 kg, 175.26 cm) rr5 [place] Coma Score: 09:17 Eye Response: spontaneous(4). Verbal Response: oriented(5). Motor Response: obeys rn commands(6). Total: 15. MDM: 07:01 Patient medically screened. rn 09:17 Differential diagnosis: hypertensive headache, intracerebral hemorrhage, migraine, rn tension headache, vasomotor headache. Data reviewed: vital signs, nurses notes, radiologic studies, CT scan, and as a result, I will discharge patient. Counseling: I had a detailed discussion with the patient and/or guardian regarding: the historical points, exam findings, and any diagnostic results supporting the discharge/admit diagnosis, radiology results, the need for outpatient follow up, to return to the emergency department if symptoms worsen or persist or if there are any questions or concerns that arise at home. Response to treatment: the patient's symptoms have markedly improved after treatment, and as a result, I will discharge patient. Special discussion: I discussed with the patient/guardian in detail that at this point there is no indication for admission to the hospital. It is understood, however, that if the symptoms persist or worsen the patient needs to return immediately for re-evaluation. ED course: Pt feels much better, ct head neg, normal neuro exam, will dc home with pcp f/u as needed. . 11/16 07:05 Order name: CT Head Brain wo Cont rn 11/16 07:47 Order name: CT; Complete Time: 08:02 EDMS 11/16 07:05 Order name: IV Start; Complete Time: 07:51 rn Administered Medications: 07:27 Drug: NS 0.9% 1000 ml Route: IV; Rate: 1000 ml; Site: right antecubital; ll1 09:01 Follow up: Response: No adverse reaction; IV Status: Completed infusion; IV Intake: ll1 1000ml 07:27 Drug: Reglan (metoCLOPramide) 10 mg Route: IVP; Site: right antecubital; ll1 08:22 Follow up: Response: No adverse reaction; RASS: Alert and Calm (0) ll1 08:01 Drug: Zofran (Ondansetron) 4 mg Route: IVP; Site: right antecubital; ll1 08:22 Follow up: Response: No adverse reaction; Nausea is decreased ll1 08:22 Drug: TORadol (ketorolac) 30 mg Route: IVP; Site: right antecubital; ll1 08:56 Follow up: Response: No adverse reaction ll1 Disposition: 11/16/20 09:19 Discharged to Home. Impression: Headache. - Condition is Stable. - Discharge Instructions: General Headache Without Cause. - Medication Reconciliation Form, Thank You Letter, Antibiotic Education, Prescription Opioid Use, Work release form form. - Follow up: Private Physician; When: As needed; Reason: Recheck today's complaints, Re-evaluation by your physician. - Problem is new. - Symptoms have improved. Signatures: Dispatcher [employer] EDKt Burgos MD MD rn Roque, Raymond RN RN rr5 Briseida Rosario RN RN ll1 Corrections: (The following items were deleted from the chart) 09:37 09:19 11/16/2020 09:19 Discharged to Home. Impression: Headache. Condition is Stable. ll1 Forms are Work release form, Medication Reconciliation Form, Thank You Letter, Antibiotic Education, Prescription Opioid Use. Follow up: Private Physician; When: As needed; Reason: Recheck today's complaints, Re-evaluation by your physician. Problem is new. Symptoms have improved. rn
[2020-11-16 09:47] VITALS: TEMP 98.5
[2020-11-16 09:52] VITALS: BP 126/81; O2SAT 98
== END 2020-11-16 09:37 | disposition home or self-care (01) ==
LOC: ER 06:27
DX: R51.9 Headache, unspecified (principal)
CPT/HCPCS: 70450; J2765; J7030; J2405; 96361; 96374; 96375; 99283

== ENCOUNTER 2021-02-01 13:36 | Emergency (ER) | payer OTHER ==
--- OUTSIDE RECORDS SUMMARY | 2021-02-01 13:38 | XMS REPORT | Continuity of Care Document ---
:1980 Author Organization [facility] t Address [address] [place] [address] Care Team Providers Name Role Phone Unavailable [...] May repeat in 10-14 days Triamcinolo Triamcinolo 0 Yes Enrique [address] [facility] [facility] ne [...] 2019-09-[address] [facility] - 00:00:00 [facility] Procedures This patient has no known procedures. Encounters Start End Encounter Admission Attending Care Care Encounter Source Date/Time Date/Time Type Type Clinicians Facility Department ID 2020-11-15 2020-11-15 Outpatient [facility] [id number] [facility] 2020-03-22 2020-03-22 Outpatient [facility] [id number] [facility] 2019-12-01 2019-12-01 [facility] [id number] [facility] 16:30:00 16:30:00 [employer] [facility] Medicine Outpat[facility] ent Clinics 2019-11-11 2019-11-11 [facility] [id number] [facility] 14:30:00 14:30:00 [employer] [facility] Out[facility] Clinics 2019-11-10 2019-11-10 [facility] [id number] [facility] 14:07:00 14:07:00 [employer] [facility] Medicine Outpat[facility] Clinics 2019-10-28 2019-10-28 [facility] [id number] [facility] 14:30:00 14:30:00 [employer] [facility] Medicine Outpati ent Clinics 2019-10-28 2019-10-28 [facility] [id number] [facility] 14:30:00 14:30:00 [employer] [facility] l Medicine Outpati ent Clinics 2019-09-16 2019-09-16 [facility] [id number] 13:30:00 13:30:00 [employer] [facility] Medicine Outpati ent Clinics 2019-08-25 2019-08-25 [facility] [id number] [facility] 15:15:00 15:15:00 [employer] [facility] Medicine l Medicine Outpati ent Clinics 2018-03-25 2018-03-25 [facility] [id number] 10:30:00 10:30:00 t Specialty/U [facility]a [facility] - [facility] l Clinic Outpati ent Clinics 2018-03-21 2018-03-21 [facility] [id number] [facility] 11:16:00 11:16:00 t Specialty/U Tanisha kes - [facility] Clinic Outpati ent Clinics 2018-03-20 2018-03-20 [facility] [id number] 11:23:00 11:23:00 t Specialty/U Tanisha kes - [facility] l Clinic Outpati ent Clinics 2018-03-11 2018-03-11 [facility] [id number] [address] 09:45:00 09:45:00 t Specialty/U [facility]anisha kes [facility] 2018-02-28 2018-02-28 [facility] [id number] 09:30:00 09:30:00 t [employer] [facility] Medicine Outpati ent Clinics 2017-12-12 2017-12-12 [facility] [id number] 11:00:00 11:00:00 t [employer] Medicine Outpati ent Clinics 2017-10-31 2017-10-31 [facility] [id number] 13:30:00 13:30:00 t [employer] Mulu [facility] Medicine Outpati ent Clinics Results This patient has no known results.
--- NOTE | 2021-02-01 20:06 | EDPHYS ---
Physician Documentation [facility] Name: Wanda Wise Age: 40 yrs Sex: Male : 1980 Arrival Date: 02/01/2021 Time: 13:57 Bed DIS2 Private MD: ED Physician Pierre Jack HPI: 02/01 19:18 This 40 yrs old Male presents to ER via Ambulatory with complaints of Sore jr8 Throat. 19:18 Severity of symptoms: At their worst the symptoms were moderate, in the emergency jr8 department the symptoms are unchanged. The patient has not experienced similar symptoms in the past. The patient has not recently seen a physician. Patient presented to emergency room today with sore throat shortness of breath nausea and headache. Onset of symptoms started yesterday. Has also complained of decreased appetite with diarrhea.. Historical: - Allergies: 14:19 "cant remember name"; ll1 - PMHx: 14:16 HEARING IMPAIRED; Kidney stones; ll1 - PSHx: 14:19 None; ll1 - Immunization history:: Client reports having NOT received the Covid vaccine. Flu vaccine is not up to date. - Social history:: Smoking status: Patient/guardian denies using tobacco, the patient reports quitting approximately 3 years ago. ROS: 19:18 Eyes: Negative for injury, pain, redness, and discharge, Neck: Negative for injury, jr8 pain, and swelling, Cardiovascular: Negative for chest pain, palpitations, and edema, Back: Negative for injury and pain, MS/Extremity: Negative for injury and deformity, Skin: Negative for injury, rash, and discoloration. 19:18 Constitutional: Positive for body aches. 19:18 ENT: Positive for sore throat. 19:18 Respiratory: Positive for cough, shortness of breath. 19:18 Abdomen/GI: Positive for diarrhea. 19:18 Neuro: Positive for headache. 19:18 All other systems are negative. Exam: 19:18 Eyes: Pupils equal round and reactive to light, extra-ocular motions intact. Lids and jr8 lashes normal. Conjunctiva and sclera are non-icteric and not injected. Cornea within normal limits. Periorbital areas with no swelling, redness, or edema. ENT: Nares patent. No nasal discharge, no septal abnormalities noted. Tympanic membranes are normal and external auditory canals are clear. Oropharynx with redness. No swelling, or masses, exudates, or evidence of obstruction, uvula midline. Mucous membranes moist. Neck: Trachea midline, no thyromegaly or masses palpated, and no cervical lymphadenopathy. Supple, full range of motion without nuchal rigidity, or vertebral point tenderness. No Meningismus. Cardiovascular: Regular rate and rhythm with a normal S1 and S2. No gallops, murmurs, or rubs. Normal PMI, no JVD. No pulse deficits. Respiratory: Lungs have equal breath sounds bilaterally, clear to auscultation and percussion. No rales, rhonchi or wheezes noted. No increased work of breathing, no retractions or nasal flaring. Abdomen/GI: Soft, non-tender, with normal bowel sounds. No distension or tympany. No guarding or rebound. No evidence of tenderness throughout. Back: No spinal tenderness. No costovertebral tenderness. Full range of motion. Skin: Warm, dry with normal turgor. Normal color with no rashes, no lesions, and no evidence of cellulitis. MS/ Extremity: Pulses equal, no cyanosis. Neurovascular intact. Full, normal range of motion. Neuro: Awake and alert, GCS 15, oriented to person, place, time, and situation. Cranial nerves II-XII grossly intact. Motor strength 5/5 in all extremities. Sensory grossly intact. Cerebellar exam normal. Normal gait. Vital Signs: 14:16 Resp 17; Height 5 ft. 9 in. (175.26 cm); Pain 9/10; ll1 15:40 BP 135 / 84; Pulse 113; Resp 17; Temp 100.2; Pulse Ox 96% ; ll1 17:44 BP 122 / 76; Pulse 104; Resp 16; Temp 99.4(O); Pulse Ox 100% on R/A; mh5 MDM: 17:40 Patient medically screened. [facility] 20:02 Data reviewed: vital signs, nurses notes, lab test result(s), and as a result, I will jr8 discharge patient. Data interpreted: Pulse oximetry: on room air is 100 %. Interpretation: normal. Counseling: I had a detailed discussion with the patient and/or guardian regarding: the historical points, exam findings, and any diagnostic results supporting the discharge/admit diagnosis, lab results, the need for outpatient follow up, a family practitioner, to return to the emergency department if symptoms worsen or persist or if there are any questions or concerns that arise at home. 02/01 17:29 Order name: Strep; Complete Time: 18:49 iw 02/01 17:29 Order name: Flu; Complete Time: 18:49 iw 02/01 18:39 Order name: Throat Culture EDMS 02/01 19:59 Order name: SARS-COV-2 RT PCR; Complete Time: 20:02 EDMS Administered Medications: No medications were administered Disposition: 02/02 07:30 Co-signature as Attending Physician, Pierre Jack MD I agree with the assessment and chetan plan of care. Disposition Summary: 02/01/21 20:06 Discharge Ordered Location: Home jr Problem: new jr8 Symptoms: have improved jr8 Condition: Stable jr8 Diagnosis - Acute pharyngitis, unspecified jr8 Followup: jr8 - With: Private Physician - When: 2 - 3 days - Reason: Recheck today's complaints, Continuance of care, Re-evaluation by your physician Discharge Instructions: - Discharge Summary Sheet jr8 - Pharyngitis jr8 Forms: - Work release form iw - Medication Reconciliation Form jr8 - Thank You Letter jr8 - Antibiotic Education jr8 - Prescription Opioid Use jr8 Prescriptions: - Ibuprofen 600 mg Oral Tablet - take 1 tablet by ORAL route every 6 hours As needed take with food; 30 tablet; jr8 Refills: 0, Product Selection Permitted - Zofran 4 mg Oral Tablet - take 1 tablet by ORAL route every 12 hours As needed; 20 tablet; Refills: 0, jr8 Product Selection Permitted - Tessalon Perles 100 mg Oral Capsule - take 1 capsule by ORAL route every 8 hours As needed; 15 capsule; Refills: 0, jr8 Product Selection Permitted Signatures: Dispatcher [employer] EDPierre Bunch MD MD cha Roszak, Josh, PA PA jr8 Briseida Rosario RN RN ll1 Corrections: (The following items were deleted from the chart) 02/01 14:22 14:16 Allergies: No Known Allergies; ll1 ll1 18:38 17:29 CORONAVIRUS+ ordered. EDTN EDTN
--- NOTE | 2021-02-01 20:06 | ER ---
Nurse's Notes [facility] Name: Wanda Wise Age: 40 yrs Sex: Male : 1980 Arrival Date: 02/01/2021 Time: 13:57 Bed DIS2 Private MD: Diagnosis: Acute pharyngitis, unspecified Presentation: 02/01 14:16 Chief complaint: Patient states: Sore throat, congestion, CHAVARRIA, swollen glands, weak for ll1 2 days. No fever. + nausea/vomiting. Coronavirus screen: Client indicates they have traveled out of the [place] in the last 14 days. Client traveled to: [facility] congestion, fatigue, headache, nausea, runny nose, sore throat, vomiting. Client presents with at least one sign or symptom that may indicate coronavirus-19. Standard/surgical mask placed on the client. Ebola Screen: Patient denies travel to an Ebola-affected area in the 21 days before illness onset. No symptoms or risks identified at this time. Initial Sepsis Screen: Does the patient meet any 2 criteria? No. Patient's initial sepsis screen is negative. Does the patient have a suspected source of infection? Yes: Other: sore throat. Risk Assessment: Do you want to hurt yourself or someone else? Patient reports no desire to harm self or others. Onset of symptoms was January 31, 2021. 14:16 Method Of Arrival: Ambulatory [facility] 14:16 Acuity: AALIYAH 4 ll1 Historical: - Allergies: 14:19 "cant remember name"; ll1 - PMHx: 14:16 HEARING IMPAIRED; Kidney stones; ll1 - PSHx: 14:19 None; ll1 - Immunization history:: Client reports having NOT received the Covid vaccine. Flu vaccine is not up to date. - Social history:: Smoking status: Patient/guardian denies using tobacco, the patient reports quitting approximately 3 years ago. Screenin:22 Abuse screen: Denies threats or abuse. Denies injuries from another. Nutritional iw screening: No deficits noted. Tuberculosis screening: No symptoms or risk factors identified. Assessment: 20:22 Reassessment: Patient appears in no apparent distress at this time. Patient and/or iw family updated on plan of care and expected duration. Pain level reassessed. Patient is alert, oriented x 3, equal unlabored respirations, skin warm/dry/pink. Vital Signs: 14:16 Resp 17; Height 5 ft. 9 in. (175.26 cm); Pain 9/10; ll1 15:40 BP 135 / 84; Pulse 113; Resp 17; Temp 100.2; Pulse Ox 96% ; ll1 17:44 BP 122 / 76; Pulse 104; Resp 16; Temp 99.4(O); Pulse Ox 100% on R/A; 5 ED Course: 13:57 Patient arrived in ED. ds1 14:16 Arm band placed on. ll1 14:19 Triage completed. ll1 17:27 Mihaela Ashley, RN is Primary Nurse. iw 17:40 Ran Vel[facility]. jr8 17:40 Pierre Jack MD is Attending Physician. jr8 17:45 Bed in low position. Call light in reach. Pulse ox on. NIBP on. mh5 17:45 Strep swab sent to lab. 5 17:46 Flu and/or RSV swab sent to lab. [facility] Administered Medications: No medications were administered Outcome: 20:06 Discharge ordered by . jr8 20:25 Patient left the ED. iw Signatures: Teresa Moreno ds1 Mihaela Ashley, RN RN Ran Velásquez PA PA Vashti Rivera Briseida Degroot RN RN [facility] Corrections: (The following items were deleted from the chart) 14:22 14:16 Allergies: No Known Allergies; 1 [facility]
[2021-02-01 21:30] VITALS: BP 122/76; TEMP 99.4; O2SAT 100
== END 2021-02-01 20:25 | disposition home or self-care (01) ==
LOC: ER 13:36
DX: J02.9 Acute pharyngitis, unspecified (principal); Z20.822 Contact with and (suspected) exposure to COVID-19
CPT/HCPCS: 87070; 87081; 87804 ×2; 99283; U0003

== ENCOUNTER 2021-07-25 06:46 | Emergency (ER) | payer OTHER ==
--- OUTSIDE RECORDS SUMMARY | 2021-07-25 06:49 | XMS REPORT | Continuity of Care Document ---
:1980 Author Organization [facility] t Address [address] [place] [address] Care Team Providers Name Role Phone Unavailable [...] 2019-09-[address] [facility] - 00:00:00 [facility] Procedures This patient has no known procedures. Encounters Start End Encounter Admission Attending Care Care Encounter Source Date/Time Date/Time Type Type Clinicians Facility Department ID 2020-11-15 2020-11-15 Outpatient [facility] [id number] [facility] 2020-03-22 2020-03-22 Outpatient [facility] [id number] [facility] 2019-12-01 2019-12-01 [facility] [id number] [facility] 16:30[facility]00 16:30:00 [facility] Outpati [facility] Clinics 2019-11-11 2019-11-11 [facility] [id number] [facility] 14:30:00 14:30:00 [facility] Out[facility] Clin[facility] 2019-11-10 2019-11-10 [facility] [id number] 14:07:00 14:07:00 [facility] Medicine Outpat[facility] Clinics 2019-10-28 2019-10-28 [facility] [id number] [facility] 14:30:00 14:30:00 [facility] Medicine Outpati [facility] Clinics 2019-10-28 2019-10-28 [facility] [id number] [address] 14:30:00 14:30:00 t [employer] [facility] Medicine Outpati ent Clinics 2019-09-16 2019-09-16 [facility] [id number] [facility] 13:30:00 13:30:00 [facility] Medicine Outpati [facility] Clinics 2019-08-25 2019-08-25 [facility] [id number] [facility] 15[facility]15:00 15:15:00 [facility] Medicine l Medicine Outpati ent Clinics 2018-03-25 2018-03-25 [facility] [id number] 10:30:00 10:30:00 t Specialty/U [facility]Urology Clinic l Clinic Outpati ent Clinics 2018-03-21 2018-03-21 [facility] [id number] 11:16:00 11:16:00 t Specialty/U [facility]Urology Clinic l Clinic Outpati ent Clinics 2018-03-20 2018-03-20 [facility] [id number] [facility] 11:23:00 11:23:00 t Specialty/U [facility] - [facility]Urology Clinic l Clinic Outpati ent Clinics 2018-03-11 2018-03-11 [facility] [id number] 09:45:00 09:45:00 t Specialty/U [facility] Outpati [facility] Clinics 2018-02-28 2018-02-28 [facility] [id number] 09:30:00 09:30:00 t [employer] [facility] - [facility] Medicine Outpati ent Clinics 2017-12-12 2017-12-12 [facility] [id number] 11:00:00 11:00:00 t [facility] [employer] [facility] Medicine Outpati ent Clinics 2017-10-31 2017-10-31 [facility] [id number] 13:30:00 13:30:00 t [facility] [employer] [facility] Medicine Outpati ent Clinics Results This patient has no known results.
[2021-07-25] MEDS ORDERED: MORPHINE 2 MG/ML SYR ONE (07:18)
[2021-07-25] MEDS ORDERED: ONDANSETRON 4 MG/2 ML VIAL ONE (07:18)
[2021-07-25 07:38] LABS: Absolute Lymphocytes (CBC) 1.5 K/uL (0.7-4.9); Hematocrit 44.7 % (39.6-49.0); Lymphocytes % 27.6 % (15.3-44.8); MPV 8.4 fL (7.6-11.3); RBC Red Blood Cell Count 5.08 M/uL (4.33-5.43)
[2021-07-25 07:42] LABS: Protime INR 0.98
[2021-07-25 07:57] LABS: Albumin 3.7 g/dL (3.4-5.0); Bilirubin Direct 0.1 mg/dL (0-0.2); Bilirubin Total 0.6 mg/dL (0.2-1.0); Magnesium 2.1 mg/dL (1.8-2.4); Potassium 3.9 mmol/L (3.5-5.1); Protein, Total 7.4 g/dL (6.4-8.2); Troponin High Sensitivity 8.8 pg/mL (<58.9)
--- NOTE | 2021-07-25 08:22 | RAD REPORT ---
EXAM DESCRIPTION: RAD - Chest Single View - 07/25/2021 7:46 am CLINICAL HISTORY: Cough;Chest pain COMPARISON: Portable September 2018 TECHNIQUE: AP portable chest image was obtained 07/25/2021 7:46 am . FINDINGS: Lungs are clear. Heart and vasculature are normal. No measurable pleural effusion and no p neumothorax. No acute bony abnormality seen. No acute aortic findings suspected. IMPRESSION: No acute cardiopulmonary process. No significant change from comparison study.
[2021-07-25 08:44] LABS: Urine Blood Negative (Negative); Urine Glucose Negative (Negative); Urine Protein Negative (Negative)
[2021-07-25 09:06] LABS: Barbiturates NEGATIVE (NEGATIVE); Benzodiazepines NEGATIVE (NEGATIVE); Cocaine NEGATIVE (NEGATIVE); METHAMPHETAM NEGATIVE (NEGATIVE); Methadone NEGATIVE (NEGATIVE); Opiates NEGATIVE (NEGATIVE); Phencyclidine NEGATIVE (NEGATIVE); THC Cannibis NEGATIVE (NEGATIVE)
[2021-07-25 09:42] LABS: SARS-COV-2 RT PCR NEGATIVE (NEGATIVE)
--- NOTE | 2021-07-25 12:15 | ER ---
Nurse's Notes [facility] Name: Wanda Wise Age: 41 yrs Sex: Male : 1980 Arrival Date: 07/25/2021 Time: 06:51 Bed 13 Private MD: Diagnosis: Chest pain, unspecified Presentation: 07/25 06:56 Chief complaint: Patient states: " I woke up at 6 in the morning with chest pain that tw5 was squeezing and I threw up 3 times". Coronavirus screen: Vaccine status: Patient reports receiving the 2nd dose of the covid vaccine. [employer]. Ebola Screen: Patient negative for fever greater than or equal to 101.5 degrees Fahrenheit, and additional compatible Ebola Virus Disease symptoms Patient denies exposure to infectious person. Patient denies travel to an Ebola-affected area in the 21 days before illness onset. Initial Sepsis Screen: Does the patient meet any 2 criteria? No. Patient's initial sepsis screen is negative. Does the patient have a suspected source of infection? No. Patient's initial sepsis screen is negative. Risk Assessment: Do you want to hurt yourself or someone else? Patient reports no desire to harm self or others. Onset of symptoms was July 25, 2021 at 06:00. 06:56 Method Of Arrival: Ambulatory tw5 06:56 Acuity: AALIYAH 3 tw5 Historical: - Allergies: 07:27 No Known Drug Allergies; ph - PMHx: 07:27 HEARING IMPAIRED; Kidney stones; ph - Immunization history:: Adult Immunizations unknown. - Social history:: Smoking status: Patient denies any tobacco usage or history of. Screenin:09 Abuse screen: Denies threats or abuse. Denies injuries from another. Nutritional ph screening: No deficits noted. Tuberculosis screening: No symptoms or risk factors identified. Fall Risk None identified. Assessment: 07:26 General: Appears in no apparent distress. comfortable, well groomed, Behavior is calm, ph cooperative, appropriate for age. Pain: Complains of pain in anterior aspect of right upper chest, anterior aspect of left upper chest and mid-sternal area Pain does not radiate. Quality of pain is described as sharp, Aggravated by coughing. Neuro: Level of Consciousness is awake, alert, obeys commands, Oriented to person, place, time, situation. Cardiovascular: Reports chest pain, Denies lightheadedness, shortness of breath, Chest pain is aggravated by coughing. Respiratory: Reports cough that is Airway is patent Respiratory effort is even, unlabored, Respiratory pattern is regular, symmetrical. GI: Reports vomiting, after coughing episodes. Derm: Skin is intact, is healthy with good turgor, Skin is pink, warm \\T\\ dry. Musculoskeletal: Circulation, motion, and sensation intact. Range of motion: intact in all extremities. 09:00 Reassessment: Patient appears in no apparent distress at this time. Patient and/or ph family updated on plan of care and expected duration. Pain level reassessed. Patient is alert, oriented x 3, equal unlabored respirations, skin warm/dry/pink. 10:00 Reassessment: Patient appears in no apparent distress at this time. Patient and/or ph family updated on plan of care and expected duration. Pain level reassessed. Patient is alert, oriented x 3, equal unlabored respirations, skin warm/dry/pink. 11:14 Reassessment: Patient appears in no apparent distress at this time. Patient and/or ph family updated on plan of care and expected duration. Pain level reassessed. Patient is alert, oriented x 3, equal unlabored respirations, skin warm/dry/pink. Awaiting results of repeat troponin Patient denies pain at this time. Vital Signs: 06:56 BP 121 / 59; Pulse 68; Resp 18; Temp 97.7(O); Pulse Ox 100% on R/A; Weight 83.01 kg; tw5 Height 5 ft. 9 in. (175.26 cm); Pain 9/10; 08:12 BP 118 / 56; Pulse 59; Resp 18; Pulse Ox 100% on R/A; ph 09:30 BP 115 / 79; Pulse 64; Resp 18; Pulse Ox 99% on R/A; ph 11:15 BP 111 / 78; Pulse 63; Resp 16; Pulse Ox 100% on R/A; ph 06:56 Body Mass Index 27.02 (83.01 kg, 175.26 cm) tw5 Vitals: 07:28 Cardiac Rhythm Assessment Sinus rhythm. ED Course: 06:51 Patient arrived in ED. wm 06:59 Triage completed. tw5 07:00 Pierre Schwartz PA is PHCP. cp 07:00 Pierre Jack MD is Attending Physician. cp 07:08 Paloma Castro, RN is Primary Nurse. ph 07:13 Arm band placed on Patient placed in an exam room, on a stretcher. ll1 07:28 Patient has correct armband on for positive identification. Placed in gown. Bed in low ph position. Call light in reach. Side rails up X 1. quality assurance monitor chassis on. Pulse ox on. NIBP on. Door closed. Noise minimized. 07:28 Initial lab(s) drawn, by me, sent to lab. Inserted saline lock: 20 gauge in right ph antecubital area, using aseptic technique. Blood collected. Patient maintains SpO2 saturation greater than 95% on room air. 07:46 XRAY Chest (1 view) In Process Unspecified. EDMS 07:57 Tiffany Hicks MD is Attending Physician. cp 08:37 UDS Sent. mh5 08:48 Urine Drug Screen Sent. mh5 08:48 COVID-19/FLU A+B (Document "Date of Onset" if Symptomatic) Sent. mh5 08:51 Basic Metabolic Panel Sent. mh5 10:58 Troponin High Sensitivity Sent. mh5 12:14 Horace Salvador MD is Referral Physician. cp 12:23 No provider procedures requiring assistance completed. IV discontinued, intact, ph bleeding controlled, No redness/swelling at site. Pressure dressing applied. Administered Medications: 07:23 Drug: morphine 2 mg Route: IVP; Site: right antecubital; jd3 12:23 Follow up: Response: No adverse reaction; Pain is decreased ph 07:23 Drug: Zofran (Ondansetron) 4 mg Route: IVP; Site: right antecubital; jd3 12:23 Follow up: Response: No adverse reaction ph 12:23 Drug: Aspirin Chewable Tablet 324 mg Route: PO; ph 12:23 Follow up: Response: No adverse reaction ph Outcome: 12:14 Discharge ordered by MD. cp 12:23 Discharged to home ambulatory. ph 12:23 Condition: good 12:23 Discharge instructions given to patient, Instructed on discharge instructions, follow up and referral plans. medication usage, Demonstrated understanding of instructions, follow-up care, medications, Prescriptions given X 1. 12:24 Patient left the ED. ph Signatures: Dispatcher [employer] EDNV Paloma Castro RN RN Pierre Eliane PA PA cp Martinez, Maria 5 Ze Merritt RN RN jd3 Briseida Rosario RN RN ll1 Christie Rhodes Tiffany 5
--- NOTE | 2021-07-25 12:15 | EDPHYS ---
Physician Documentation [facility] Name: Wanda Wise Age: 41 yrs Sex: Male : 1980 Arrival Date: 07/25/2021 Time: 06:51 Bed 13 Private MD: ED Physician Tiffany Hicks HPI: 07/25 07:12 This 41 yrs old Male presents to ER via Ambulatory with complaints of Chest cp Pain, Breathing Difficulty. 07:12 The patient or guardian reports chest pain that is located primarily in the anterior cp chest wall, left. 07:12 Onset: this morning. Associated signs and symptoms: Pertinent positives: cough, vomited cp times 3, Pertinent negatives: abdominal pain, diaphoresis, lower extremity pain, lower extremity swelling, palpitations, syncope. The chest pain is described as a pressure. Duration: The patient or guardian reports a single episode, that is still ongoing. Historical: - Allergies: 07:27 No Known Drug Allergies; ph - PMHx: 07:27 HEARING IMPAIRED; Kidney stones; ph - Immunization history:: Adult Immunizations unknown. - Social history:: Smoking status: Patient denies any tobacco usage or history of. ROS: 07:14 Constitutional: Negative for fever. cp 07:14 ENT: Negative for sore throat, difficulty swallowing, difficulty handling secretions. 07:14 Cardiovascular: Positive for chest pain. 07:14 Respiratory: Positive for cough. 07:14 Abdomen/GI: Positive for nausea and vomiting. 07:14 Back: Negative for radiated pain. 07:14 Neuro: Negative for altered mental status, headache, numbness, syncope, tingling, weakness. 07:14 All other systems are negative. Exam: 07:20 Constitutional: The patient appears in no acute distress, alert, awake, cp non-diaphoretic, non-toxic, well developed, well nourished. 07:20 Head/Face: Normocephalic, atraumatic. cp 07:20 Eyes: Periorbital structures: appear normal, Conjunctiva: normal, no exudate, no injection, Sclera: no appreciated abnormality, Lids and lashes: appear normal, bilaterally. 07:20 ENT: External ear(s): are unremarkable, Nose: is normal, Posterior pharynx: Airway: no evidence of obstruction, patent. 07:20 Neck: ROM/movement: is normal, is supple, without pain, no range of motions limitations, no nuchal rigidity. 07:20 Chest/axilla: Inspection: normal. 07:20 Cardiovascular: Rate: normal, Rhythm: regular, Heart sounds: murmur, not appreciated, Edema: is not appreciated, JVD: is not appreciated. 07:20 Respiratory: the patient does not display signs of respiratory distress, Respirations: normal, no use of accessory muscles, no retractions, labored breathing, is not present, Breath sounds: are clear throughout, no decreased breath sounds, no stridor, no wheezing. 07:20 Abdomen/GI: Inspection: abdomen appears normal, Palpation: abdomen is soft and non-tender, in all quadrants. 07:20 Back: pain, is absent, ROM is normal. 07:20 Neuro: Orientation: to person, place \\T\\ time. Mentation: is normal, Motor: moves all cp fours, strength is normal, Sensation: is normal. 07:30 ECG was reviewed by the Attending Physician. cp 11:15 ECG was reviewed by the Attending Physician. cp Vital Signs: 06:56 BP 121 / 59; Pulse 68; Resp 18; Temp 97.7(O); Pulse Ox 100% on R/A; Weight 83.01 kg; tw5 Height 5 ft. 9 in. (175.26 cm); Pain 9/10; 08:12 BP 118 / 56; Pulse 59; Resp 18; Pulse Ox 100% on R/A; ph 09:30 BP 115 / 79; Pulse 64; Resp 18; Pulse Ox 99% on R/A; ph 11:15 BP 111 / 78; Pulse 63; Resp 16; Pulse Ox 100% on R/A; ph 06:56 Body Mass Index 27.02 (83.01 kg, 175.26 cm) tw5 MDM: 07:10 Patient medically screened. cp 08:00 Differential diagnosis: acute myocardial infarction, acute pericarditis, chest wall cp pain, cholecystitis, Cholelithiasis costochondritis, pericarditis, pleurisy, pneumonia, pneumothorax, pulmonary embolus, stable angina, unstable angina. 12:13 Data reviewed: vital signs, nurses notes, lab test result(s), EKG, radiologic studies, cp plain films. 12:14 The patient was given aspirin in the Emergency Department. 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 ED course: VSS. Pain resolved. Initial and repeat troponin negative, EKG normal. Will discharge to home for continued monitoring. 07/25 07:11 Order name: Basic Metabolic Panel 07/25 07:11 Order name: CBC with Diff; Complete Time: 08:18 cp 07/25 07:11 Order name: LFT's; Complete Time: 08:18 07/25 08:18 Interpretation: Normal except: GLOB 3.7; A/G 1.0. 07/25 07:11 Order name: Magnesium; Complete Time: 08:18 07/25 07:11 Order name: NT PRO-BNP; Complete Time: 08:18 07/25 07:11 Order name: PT-INR; Complete Time: 08:18 cp 07/25 07:11 Order name: Troponin HS; Complete Time: 08:18 07/25 08:18 Interpretation: Troponin HS 8.80; Reviewed. 07/25 07:11 Order name: Lipase; Complete Time: 08:18 07/25 07:12 Order name: Basic Metabolic Panel; Complete Time: 08:18 EDNE 07/25 08:18 Interpretation: Normal except: CL 109; GFR 63. 07/25 07:15 Order name: UDS 07/25 07:16 Order name: Urine Drug Screen; Complete Time: 09:06 EDNE 07/25 09:07 Interpretation: Reviewed. 07/25 08:24 Order name: COVID-19/FLU A+B (Document "Date of Onset" if Symptomatic) 07/25 08:44 Order name: Urine Dipstick-Ancillary EDNE 07/25 10:43 Order name: Troponin High Sensitivity 07/25 07:11 Order name: XRAY Chest (1 view); Complete Time: 08:25 07/25 08:25 Interpretation: Report reviewed. 07/25 07:11 Order name: EKG; Complete Time: 07:12 cp 07/25 07:11 Order name: Cardiac monitoring; Complete Time: 07:23 cp 07/25 07:11 Order name: EKG - Nurse/Tech; Complete Time: 07: cp 07/25 07:11 Order name: IV Saline Lock; Complete Time: 07: cp 07/25 07:11 Order name: Labs collected and sent; Complete Time: 07: cp 07/25 07:11 Order name: O2 Per Protocol; Complete Time: 07: cp 07/25 07:11 Order name: O2 Sat Monitoring; Complete Time: 07: cp 07/25 07:15 Order name: Urine Dipstick-Ancillary (obtain specimen); Complete Time: 08:37 cp 07/25 10:43 Order name: EKG; Complete Time: 10:44 cp 07/25 10:43 Order name: EKG - Nurse/Tech; Complete Time: 10:58 cp EC:30 Rate is 74 beats/min. Rhythm is regular. CO interval is normal. QRS interval is normal. cp QT interval is normal. T waves are Inverted in lead aVR. Interpreted by me. Reviewed by me. 11:15 Rate is 62 beats/min. Rhythm is regular. CO interval is normal. QRS interval is normal. cp QT interval is normal. T waves are Inverted in lead aVR. Interpreted by me. Reviewed by me. Administered Medications: 07:23 Drug: morphine 2 mg Route: IVP; Site: right antecubital; jd3 12:23 Follow up: Response: No adverse reaction; Pain is decreased ph 07:23 Drug: Zofran (Ondansetron) 4 mg Route: IVP; Site: right antecubital; jd3 12:23 Follow up: Response: No adverse reaction ph 12:23 Drug: Aspirin Chewable Tablet 324 mg Route: PO; ph 12:23 Follow up: Response: No adverse reaction ph Disposition: 12:20 Chart complete. cp 07/26 04:41 Co-signature as Attending Physician, Tiffany Hicks MD I agree with the assessment and sp3 plan of care. Disposition Summary: 07/25/21 12:14 Discharge Ordered Location: Home cp Problem: new cp Symptoms: have improved cp Condition: Stable cp Diagnosis - Chest pain, unspecified cp Followup: cp - With: Horace Salvador MD - When: 2 - 3 days - Reason: Recheck today's complaints Discharge Instructions: - Discharge Summary Sheet cp - Nonspecific Chest Pain, Adult cp - Aspirin and Your Heart cp Forms: - Medication Reconciliation Form cp - Thank You Letter cp - Antibiotic Education cp - Prescription Opioid Use cp Prescriptions: - Ibuprofen 800 mg Oral Tablet - take 1 tablet by ORAL route every 8 hours As needed take with food; 30 tablet; cp Refills: 0, Product Selection Permitted Signatures: Dispatcher [employer] Paloma Cueva RN RN ph Lana, LIANNA Jay PA Ze Lipscomb RN RN jd3 Tiffany Hicks MD MD sp3
[2021-07-25 12:34] VITALS: TEMP 97.7
[2021-07-25 12:39] VITALS: BP 111/78; O2SAT 100
--- NOTE | 2021-07-26 13:06 | EKG ---
Test Date: 2021-07-25 Test Time: 07:22:47 Human Resource Internship: ISSA MEASUREMENT RESULTS: Intervals: Rate: 74 ND: 138 QRSD: 86 QT: 372 QTc: 412 [place]: P: 63 ND: 138 QRS: 52 T: 36 INTERPRETIVE STATEMENTS: Normal sinus rhythm Normal ECG No previous ECG available for comparison Electronically Signed On 07-26-21 13:03:06 BRAIDED RUG MAKER by Hoarce Salvador
--- NOTE | 2021-07-26 13:06 | EKG ---
Test Date: 2021-07-25 Test Time: 11:07:27 Metal Bending Machine Operator: PH MEASUREMENT RESULTS: Intervals: Rate: 62 MI: 140 QRSD: 82 QT: 400 QTc: 406 [place]: P: 28 MI: 140 QRS: 53 T: 35 INTERPRETIVE STATEMENTS: Normal sinus rhythm Cannot rule out Anterior infarct, age undetermined Abnormal ECG Compared to ECG 07/25/2021 07:22:47 Myocardial infarct finding now present Electronically Signed On 07-26-21 13:03:02 FORENSICS TEAM DIRECTOR by Horace Salvador
== END 2021-07-25 12:24 | disposition home or self-care (01) ==
LOC: ER 06:46
DX: R07.9 Chest pain, unspecified (principal); Z20.822 Contact with and (suspected) exposure to COVID-19
CPT/HCPCS: 93005 ×2; 85025; 80048; 36415; 83735; 85610; 80076; 81003; 84484 ×2; 83690; 83880; 0240U; 80307; 71045; J2270; J2405; 96374; 96375; 99285

== ENCOUNTER 2021-11-09 10:31 | Emergency (ER) | payer OTHER ==
--- OUTSIDE RECORDS SUMMARY | 2021-11-09 10:34 | XMS REPORT | Continuity of Care Document ---
:1980 Author Organization [facility] t Address [address] [place] [address] Care Team Providers Name Role Phone Kurt Enrique Renee Attending Clinician Unavailable Problems This patient has no known problems. Allergies, Adverse Reactions, Alerts This patient has no known allergies or adverse reactions. Medications Ordered Filled Start Stop Current Ordering Indication Dosage Frequency Signature Comments Components Source Medication Medication Date Date Medication? Clinician (SIG) Name Name Permethrin Permethrin Yes Enrique 1 Common 6-02 Hicks applicatio Spirit 00:00: n from - [facility] [address] to the [facility] soles of Medical feet, wast Center off after 8-14 hours. May repeat in 10-14 days Triamcinolo Triamcinolo Yes Enrique 1 Common ne ne 5-13 Hicks applicatio Spirit Acetonide Acetonide 00:00: n - C HI 00 [facility] Omeprazole Omeprazole Yes Enrique 1 capsule Common 9- Hicks Spirit 00:00: - [facility] 00 [facility] Bacitracin Bacitracin Yes Enrique APPLY Common Hicks SMALL Spirit STRIP ON - [facility] LOWER [facility] EYELID OF [facility] AFFECTED Medical EYE EVERY Center 4 HOURS Immunizations Ordered Immunization Filled Immunization Date Status Commen ts Source Name Name Fluzone Fluzone 2019-09-16 Completed Common Spirit 00:00:00 [facility] Procedures This patient has no known procedures. Encounters Start End Encounter Admission Attending Care Care Encounter Source Date/Time Date/Time Type Type Clinicians Facility Department ID 2021-07-26 Outpatient Hicks, STLMLC STLMLC [id number] Common 13:04:39 Enrique 55670 [facility] 2021-07-26 Outpatient Hicks, STLMLC STLMLC [id number] Common 12:58:58 Enrique 65735 [facility] 2021-07-26 Outpatient Hicks, STLMLC STLMLC [id number] Common 11:48:10 Enrique [id number] [facility] 2021-07-26 Outpatient Hicks, STLMLC STLMLC [id number] Common 11:19:50 Enrique [id number] [facility] 2021-07-26 Outpatient Hicks, STLMLC STLMLC [id number] Common 11:19:37 Enrique [id number] [facility] 2021-07-26 Outpatient Hicks, STLMLC STLMLC [id number] Common 11:19:29 Enrique 72347 [facility] 2021-07-26 Outpatient Hicks, STLMLC STLMLC [id number] Common 11:12:34 Enrique [id number] [facility] 2020-11-15 2020-11-15 Outpatient STLMLC STLMLC [id number] Common 00:00:00 00:00:00 [facility] 2020-03-22 2020-03-22 Outpatient STLMLC STLMLC [id number] Common 00:00:00 00:00:00 [facility] 2019-12-01 2019-12-01 [id number] Common 16:30:00 16:30:00 [facility] [employer] [facility] 2019-11-11 2019-11-11 [facility] [id number] Common 14:30:00 14:30:00 t [employer] [facility] it [employer] [facility] 2019-11-10 2019-11-10 [facility] [id number] Common 14:07:00 14:07:[address] [facility] 2019-10-28 2019-10-28 [facility] [id number] Common 14:30:00 14:30:[address] [facility] 2019-10-28 2019-10-28 [facility] [id number] Common 14:30:00 14:30:[address] [facility] 2019-09-16 2019-09-16 [facility] [id number] Common 13:30:00 13:30:[address] [facility] 2019-08-25 2019-08-25 [facility] [id number] Common 15:15:00 15:15:[address] [facility] 2018-03-25 2018-03-25 [facility] [id number] Common 10:30:00 10:30:00 t Specialty/U Sp [place] Specialty rology - [facility] /Urology Clinic [facility] 2018-03-21 2018-03-21 [facility] [id number] Common 11:16:00 11:16:00 t Specialty/U Sp [place] Specialty rology - [facility] 2018-03-20 2018-03-20 [facility] [id number] Common 11:23:00 11:23:00 t Specialty/U Sp [place] Specialty rology - [facility] 2018-03-11 2018-03-11 [facility] [id number] Common 09:45:00 09:45:00 t Specialty/U Sp [place] Specialty rology - [facility] 2018-02-28 2018-02-28 [facility] [id number] Common 09:30:00 09:30:[address] [facility] 2017-12-12 2017-12-12 Outpatient Lupe Rebollar [id number] Common 11:00:00 11:00:00 [address] [employer] [address] [facility] 2017-10-31 2017-10-31 Outpatient Lupe Rebollar [id number] Common 13:30:00 13:30:[address] [employer] [address] [facility] Results This patient has no known results.
[2021-11-09] MEDS ORDERED: MORPHINE 4 MG/ML SYR ONE (11:49)
[2021-11-09] MEDS ORDERED: dexAMETHasone 10 MG/ML VIAL ONE (11:50)
[2021-11-09] MEDS ORDERED: ONDANSETRON 4 MG/2 ML VIAL ONE (11:50)
[2021-11-09 12:15] LABS: Absolute Lymphocytes (CBC) 0.7 K/uL (0.7-4.9); Hematocrit 44.5 % (39.6-49.0); RBC Red Blood Cell Count 5.04 M/uL (4.33-5.43)
[2021-11-09 12:26] LABS: Albumin 4.1 g/dL (3.4-5.0); Bilirubin Total 0.7 mg/dL (0.2-1.0); Protein, Total 7.7 g/dL (6.4-8.2)
[2021-11-09 12:27] LABS: Potassium 4.3 mmol/L (3.5-5.1)
--- NOTE | 2021-11-09 13:28 | RAD REPORT ---
EXAM DESCRIPTION: CT - Soft Tissue Neck W/Contr - 11/09/2021 1:06 pm CLINICAL HISTORY: Neck pain with sore throat COMPARISON: None. TECHNIQUE: Computed axial tomography of the neck was obtained. 50 cc Isovue 300 was administered in travenously. Coronal and sagittal reconstruction was performed. All CT scans are performed using dose optimization technique as appropriate and may include automated exposure control or mA/KV adjustment according to patient size. FINDINGS: A 7 x 4 millimeter low-density area within the right tonsil. Punctate calcifications withi n the tonsils the tonsils are symmetric in size. No stranding within the parapharyngeal fat The remainder of the pharynx, tongue base, larynx and subglottic trachea appear unremarkable The parotid, submandibular and thyroid glands appear unremarkable. No lymphadenopathy is seen The sinuses and mastoids are clear. IMPRESSION: 7 x 4 millimeter low-density area within the right tonsil. This may indicate a small ear ly abscess and should be correlated clinically
[2021-11-09] MEDS ORDERED: CLINDAMYCIN 900MG/D5W 900 MG/50 ML IVPB IV ONE (14:17)
--- NOTE | 2021-11-09 15:53 | ER ---
Nurse's Notes [facility] Name: Wanda Wise Age: 41 yrs Sex: Male : 1980 Arrival Date: 11/09/2021 Time: 10:34 Bed 10 Private MD: Diagnosis: Peritonsillar abscess Presentation: 11/09 11:17 Chief complaint: Patient states: has had nausea and vomited 9 times today, also feels iw pain and swelling on left side of throat. Coronavirus screen: Client presents with at least one sign or symptom that may indicate coronavirus-19. Ebola Screen: Patient negative for fever greater than or equal to 101.5 degrees Fahrenheit, and additional compatible Ebola Virus Disease symptoms Patient denies exposure to infectious person. Patient denies travel to an Ebola-affected area in the 21 days before illness onset. No symptoms or risks identified at this time. Initial Sepsis Screen: Does the patient meet any 2 criteria? No. Patient's initial sepsis screen is negative. Does the patient have a suspected source of infection? No. Patient's initial sepsis screen is negative. Risk Assessment: Do you want to hurt yourself or someone else? Patient reports no desire to harm self or others. Onset of symptoms was November 09, 2021. 11:17 Method Of Arrival: Ambulatory iw 11:17 Acuity: AALIYAH 3 iw Historical: - Allergies: 11:18 No Known Allergies; iw - Home Meds: 11:18 loratadine oral [Active]; iw - PMHx: 11:15 HEARING IMPAIRED; Kidney stones; ss - PSHx: 11:18 None; iw - Immunization history:: Client reports receiving the 2nd dose of the Covid vaccine. - Social history:: Smoking status: Patient/guardian denies using tobacco, the patient reports quitting approximately 5 years ago. Screenin:27 Abuse screen: Denies threats or abuse. Denies injuries from another. Nutritional iw screening: No deficits noted. Tuberculosis screening: No symptoms or risk factors identified. Fall Risk None identified. Assessment: 11:27 General: Appears in no apparent distress. Behavior is calm, cooperative. Pain: iw Complains of pain in throat. Neuro: Calderon Agitation-Sedation Scale (RASS): Level of Consciousness is awake, alert, obeys commands. GI: Abdomen is non-distended, Bowel sounds present X 4 quads. Abd is soft and non tender Reports nausea, vomiting. EENT: Throat is reddened has enlarged tonsils on left. Derm: Skin is intact, is healthy with good turgor. 16:05 Reassessment: Patient appears in no apparent distress at this time. Patient and/or iw family updated on plan of care and expected duration. Pain level reassessed. Patient is alert, oriented x 3, equal unlabored respirations, skin warm/dry/pink. Patient states feeling better. Patient states symptoms have improved. Vital Signs: 11:17 BP 118 / 59; Pulse 89; Resp 16; Temp 99.7; Pulse Ox 100% on R/A; iw ED Course: 10:34 Patient arrived in ED. mr 10:50 Miguel Mosquera PA is PHCP. jmm 10:50 Virgil Farooq DO is Attending Physician. jmm 11:18 Triage completed. iw 11:27 Arm band placed on. iw 11:41 Mihaela Ashley, RN is Primary Nurse. iw 11:55 Inserted saline lock: 20 gauge in right antecubital area, using aseptic technique. zm Blood collected. 13:08 Soft Tissue Neck W/Contr CT In Process Unspecified. EDMS 15:53 Sophie Mclean MD is Referral Physician. jmm 16:06 Patient has correct armband on for positive identification. iw 16:06 No provider procedures requiring assistance completed. IV discontinued, intact, iw bleeding controlled, No redness/swelling at site. Pressure dressing applied. Administered Medications: 11:53 Drug: Decadron - Dexamethasone 10 mg Route: IVP; Site: right antecubital; iw 12:30 Follow up: Response: No adverse reaction iw 11:54 Drug: morphine 4 mg Route: IVP; Site: right antecubital; iw 12:30 Follow up: Response: No adverse reaction; Pain is decreased iw 11:54 Drug: Zofran (Ondansetron) 4 mg Route: IVP; Site: right antecubital; iw 12:30 Follow up: Response: No adverse reaction iw 14:20 Drug: Clindamycin 900 mg Route: IVPB; Infused Over: 30 mins; Site: right antecubital; iw 14:50 Follow up: IV Status: Completed infusion iw Medication: 16:06 VIS not applicable for this client. iw Outcome: 15:53 Discharge ordered by MD. herr 16:06 Discharged to home ambulatory. iw 16:06 Condition: good 16:06 Discharge instructions given to patient, Instructed on discharge instructions, follow up and referral plans. medication usage, Demonstrated understanding of instructions, follow-up care, medications, Prescriptions given X 4. 16:06 Patient left the ED. iw Signatures: Dispatcher [employer] EDMS Miguel Mosquera PA PA jmm Rivera, Mary mr Mihaela Ashley RN RN Suzan Rios RN RN ss Breneman, Mary Breanne Reyes Corrections: (The following items were deleted from the chart) 11:55 11:54 Inserted saline lock: 20 gauge in right antecubital area, using aseptic mb7 technique. Blood collected. [facility] 11:55 11:54 CBC+H.LAB.BRZ drawn and sent. 7 [facility] 11:55 11:54 COMPREHENSIVE METABOLIC PANEL+C.LAB.BRZ drawn and sent. 7 [facility] 11:55 11:54 Group A Streptococcus Rapid Sc+BA.LAB.BRZ drawn and sent. 7 [facility]
--- NOTE | 2021-11-09 15:54 | EDPHYS ---
Physician Documentation [facility] Name: Wanda Wise Age: 41 yrs Sex: Male : 1980 Arrival Date: 11/09/2021 Time: 10:34 Bed 10 Private MD: ED Physician Virgil Farooq HPI: 11/09 11:22 This 41 yrs old Male presents to ER via Ambulatory with complaints of jmm Abdominal Pain, Vomiting, Sore Throat. 19:17 The patient presents with sore throat. Onset: The symptoms/episode began/occurred jmm gradually. Modifying factors: The symptoms are alleviated by nothing, the symptoms are aggravated by nothing. Associated signs and symptoms: Pertinent positives: fever. Is a 41-year-old male with a history of kidney stones, deaf, the presents to the emergency department mainly with complaints of sore throat, painful swallowing, chills. Patient also has some epigastric pain with some episodes of vomiting. Denies diarrhea.. Historical: - Allergies: 11:18 No Known Allergies; iw - Home Meds: 11:18 loratadine oral [Active]; iw - PMHx: 11:15 HEARING IMPAIRED; Kidney stones; ss - PSHx: 11:18 None; iw - Immunization history:: Client reports receiving the 2nd dose of the Covid vaccine. - Social history:: Smoking status: Patient/guardian denies using tobacco, the patient reports quitting approximately 5 years ago. ROS: 19:17 Constitutional: Positive for body aches, chills. jmm 19:17 ENT: Positive for sore throat. 19:17 Abdomen/GI: Positive for abdominal pain, nausea and vomiting. 19:17 All other systems are negative. Exam: 19:17 Constitutional: This is a well developed, well nourished patient who is awake, alert, jmm and in no acute distress. Head/Face: atraumatic. Eyes: EOMI, no conjunctival erythema appreciated 19:17 Neck: Trachea midline, Supple Chest/axilla: Normal chest wall appearance and motion. Cardiovascular: Regular rate and rhythm. No edema appreciated Respiratory: Normal respirations, no respiratory distress appreciated Abdomen/GI: Non distended, soft Back: Normal ROM Skin: General appearance color normal MS/ Extremity: Moves all extremities, no obvious deformities appreciated, no edema noted to the lower extremities Neuro: Awake and alert Psych: Behavior is normal, Mood is normal, Patient is cooperative and pleasant 19:17 ENT: Posterior pharynx: Tonsils: bilaterally enlarged, with erythema, Uvula: midline, swelling, that is moderate, erythema, that is moderate. Vital Signs: 11:17 BP 118 / 59; Pulse 89; Resp 16; Temp 99.7; Pulse Ox 100% on R/A; iw MDM: 11:22 Patient medically screened. [facility] 15:53 Data reviewed: vital signs, nurses notes. Counseling: I had a detailed discussion with [facility] the patient and/or guardian regarding: the historical points, exam findings, and any diagnostic results supporting the discharge/admit diagnosis, lab results, radiology results, the need for outpatient follow up, to return to the emergency department if symptoms worsen or persist or if there are any questions or concerns that arise at home. 19:19 ED course: Labs are unremarkable. CT did has concerns for peritonsillar abscess on the [facility] read. I discussed the patient with Dr. Mclean whom recommended home antibiotics and steroids and otherwise given strict return precautions.. 11/09 11:34 Order name: CBC with Diff; Complete Time: 12:32 [facility] 11/09 11:34 Order name: CMP; Complete Time: 12:32 [facility] 11/09 11:34 Order name: Strep; Complete Time: 12:32 [facility] 11/09 11:36 Order name: Soft Tissue Neck W/Contr CT; Complete Time: 13:48 [facility] 11/09 12:16 Order name: Throat Culture [facility] 11/09 11:34 Order name: Saline Lock; Complete Time: 11:54 [facility] Administered Medications: 11:53 Drug: Decadron - Dexamethasone 10 mg Route: IVP; Site: right antecubital; iw 12:30 Follow up: Response: No adverse reaction iw 11:54 Drug: morphine 4 mg Route: IVP; Site: right antecubital; iw 12:30 Follow up: Response: No adverse reaction; Pain is decreased iw 11:54 Drug: Zofran (Ondansetron) 4 mg Route: IVP; Site: right antecubital; iw 12:30 Follow up: Response: No adverse reaction iw 14:20 Drug: Clindamycin 900 mg Route: IVPB; Infused Over: 30 mins; Site: right antecubital; iw 14:50 Follow up: IV Status: Completed infusion iw Disposition: 22:12 Co-signature as Attending Physician, Virgil Farooq DO I was immediately available on-site ms3 in the Emergency Department for consultation in the care of the patient.. Disposition Summary: 11/09/21 15:53 Discharge Ordered Location: Home [facility] Condition: Stable [facility] Diagnosis - Peritonsillar abscess [facility] Followup: [facility] - With: Sophie Mclean MD - When: 2 - 3 days - Reason: Recheck today's complaints, Continuance of care, Re-evaluation by your physician Discharge Instructions: - Discharge Summary Sheet [facility] - Peritonsillar Abscess [facility] Forms: - Medication Reconciliation Form [facility] - Thank You Letter [facility] - Antibiotic Education [facility] - Prescription Opioid Use [facility] Prescriptions: - Clindamycin HCl 300 mg Oral Capsule - take 1 capsule by ORAL route every 6 hours for 10 days; 40 capsule; Refills: 0, [facility] Product Selection Permitted - Pepcid 20 mg Oral Tablet - take 1 tablet by ORAL route every 12 hours for 10 days; 20 tablet; Refills: 0, [facility] Product Selection Permitted - Medrol (Guillermo) 4 mg Oral Tablets, Dose Pack - take 1 tablet by ORAL route as directed - follow package instructions; 1 [facility] packet; Refills: 0, Product Selection Permitted - dicyclomine 20 mg Oral Tablet - take 1 tablet by ORAL route 3 times per day As needed; 20 tablet; Refills: 0, [facility] Product Selection Permitted Signatures: Dispatcher [employer] EDMiguel Pro PA PA Mihaela Stringer RN RN iw Smirch, Shelby, RN RN ss Sims, Marcus, DO DO ms3
[2021-11-09 17:34] VITALS: BP 118/59; TEMP 99.7; O2SAT 100
== END 2021-11-09 16:06 | disposition home or self-care (01) ==
LOC: ER 10:31
DX: J36 Peritonsillar abscess (principal); R10.13 Epigastric pain; R11.2 Nausea with vomiting, unspecified
CPT/HCPCS: 96365; 87070; 85025; 36415; 87081; 80053; 70491; 96375; 99284; Q9967; J1100; J2405

== ENCOUNTER 2021-11-11 02:08 | Emergency (ER) | payer OTHER ==
--- OUTSIDE RECORDS SUMMARY | 2021-11-11 02:11 | XMS REPORT | Continuity of Care Document ---
:1980 Author Organization [facility] t Address [address] [place] [address] Care Team Providers Name Role Phone Kurt [...] [facility] [address] [facility] soles of Medical feet, wast Center off after 8-14 hours. May repeat in 10-14 days Triamcinolo Triamcinolo Yes Enrique 1 Common ne ne 5-13 [facility] applicatio Spirit Acetonide Acetonide 00:00: n - C HI 00 [facility] Omeprazole Omeprazole Yes Enrique 1 capsule Common 9- [facility] 00:00: - [facility] 00 [facility] Bacitracin Bacitracin Yes Enrique APPLY Common Hicks SMALL Spirit STRIP ON - [facility] LOWER [facility] EYELID OF [facility] AFFECTED Medical EYE EVERY Center 4 HOURS Immunizations Ordered Immunization Filled Immunization Date Status Commen ts Source Name Name Fluzone Fluzone 2019-09-16 Completed Common Spirit 00:00:00 [facility] Procedures This patient has no known procedures. Encounters Start End Encounter Admission Attending Care Care Encounter Source Date/Time Date/Time Type Type Clinicians Facility Department ID 2021-07-26 Outpatient Hicks, STLMLC STLMLC [id number] Common 13:04:39 Enrique [id number] [facility] 2021-07-26 Outpatient Hicks, STLMLC STLMLC [id number] Common 12:58:58 Enrique [id number] [facility] 2021-07-26 Outpatient Hicks, STLMLC STLMLC [id number] Common 11:48:10 Enrique [id number] [facility] 2021-07-26 Outpatient Hicks, STLMLC STLMLC [id number] Common 11:19:50 Enrique 78535 [facility] 2021-07-26 Outpatient Hicks, STLMLC STLMLC [id number] Common 11:19:37 Enrique [id number] [facility] 2021-07-26 Outpatient Hicks, STLMLC STLMLC [id number] Common 11:19:29 Enrique [id number] [facility] 2021-07-26 Outpatient Hicks, STLMLC STLMLC [id number] Common 11:12:34 Enrique [id number] [facility] 2020-11-15 2020-11-15 Outpatient STLMLC STLMLC [id number] Common 00:00:00 00:00:00 [facility] 2020-03-22 2020-03-22 Outpatient STLMLC STLMLC [id number] Common 00:00:00 00:00:00 [facility] 2019-12-01 2019-12-01 [facility] [id number] Common 16:30:00 16:30:00 [employer] [facility] it [employer] [facility] 2019-11-11 2019-11-11 [facility] [id number] Common 14:30:00 14:30:00 t [employer] [facility] it [place] [facility] 2019-11-10 2019-11-10 [facility] [id number] Common 14:07:00 14:07:[address] [facility] 2019-10-28 2019-10-28 [facility] [id number] Common 14:30:00 14:30:[address] [facility] 2019-10-28 2019-10-28 [facility] [id number] Common 14:30:00 14:30:[address] [facility] 2019-09-16 2019-09-16 [facility] [id number] Common 13:30:00 13:30:[address] [facility] 2019-08-25 2019-08-25 [facility] [id number] Common 15:15:00 15:15:[address] [facility] 2018-03-25 2018-03-25 [facility] [id number] Common 10:30:00 10:30:00 t Specialty/U Sp [place] Specialty rology - [facility] /Urology Clinic [facility] 2018-03-21 2018-03-21 [facility] [id number] Common 11:16:00 11:16:00 t Specialty/U Sp [place] Specialty rology - [facility] 2018-03-20 2018-03-20 [facility] [id number] Common 11:23:00 11:23:00 t Specialty/U Sp [place] Specialty rology - [facility] 2018-03-11 2018-03-11 [facility] [id number] Common 09:45:00 09:45:00 t Specialty/U Sp [place] Specialty rology - [facility] 2018-02-28 2018-02-28 [facility] [id number] Common 09:30:00 09:30:[address] [facility] 2017-12-12 2017-12-12 Outpatient Lupe Rebollar [id number] Common 11:00:00 11:00:00 t [employer] [address] [facility] 2017-10-31 2017-10-31 Outpatient Lupe Rebollar [id number] Common 13:30:00 13:30:00 t [employer] [address] [facility] Results This patient has no known results.
--- NOTE | 2021-11-11 04:48 | ER ---
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 states, "I was in here the with vc1 cramps in my stomach, headache, vomiting. When I left the ER I felt better. Today I started coughing and had yellow sputum coming out and my stomach cramps are worse.". Coronavirus screen: Vaccine status: Patient reports receiving the 2nd dose of the covid vaccine. Pfizer cough unrelated to allergies, vomiting. Client presents with at least one sign or symptom that may indicate coronavirus-19. Standard/surgical mask placed on the client. Provider contacted for isolation considerations. Ebola Screen: No symptoms or risks identified at this time. Initial Sepsis Screen: Does the patient meet any 2 criteria? No. Patient's initial sepsis screen is negative. Does the patient have a suspected source of infection? Yes: Productive cough/pneumonia. Risk Assessment: Do you want to hurt yourself or someone else? Patient reports no desire to harm self or others. Onset of symptoms is unknown. 02:41 Method Of Arrival: Ambulatory vc1 02:41 Acuity: AALIYAH 3 vc1 Triage Assessment: 02:47 General: Appears in no apparent distress. uncomfortable, Behavior is calm, cooperative, vc1 appropriate for age. Pain: Complains of pain in abdomen Pain radiates to chest Pain currently is 5 out of 10 on a pain scale. EENT:. Neuro: Level of Consciousness is awake, alert, obeys commands, Oriented to person, place, time, situation, Appropriate for age. Cardiovascular: No deficits noted. Respiratory: Airway is patent Respiratory effort is even, unlabored, Respiratory pattern is regular, symmetrical. Respiratory: Reports cough that is productive. GI: Abdomen is flat, non-distended, Reports lower abdominal pain, upper abdominal pain. : No deficits noted. Derm: No deficits noted. Musculoskeletal: No deficits noted. Historical: - Allergies: 02:46 No Known Allergies; vc1 - PMHx: 02:46 HEARING IMPAIRED; Kidney stones; vc1 - PSHx: 02:46 None; vc1 - Immunization history:: Adult Immunizations up to date, Client reports receiving the 2nd dose of the Covid vaccine, Flu vaccine is up to date. - Social history:: Smoking status: Patient/guardian denies using tobacco, the patient reports quitting approximately 5 years ago. Screenin:49 Abuse screen: Denies threats or abuse. Nutritional screening: No deficits noted. vc1 Tuberculosis screening: No symptoms or risk factors identified. Fall Risk None identified. Assessment: 02:50 GI: Bowel sounds present X 4 quads. Abd is soft and non tender X 4 quads. ke1 Vital Signs: 02:41 Pulse 78; Resp 19; Temp 98.1; Pulse Ox 99% on R/A; Weight 79.38 kg; Height 5 ft. 9 in. vc1 (175.26 cm); Pain 6/10; 05:15 BP 129 / 80; Pulse 74; Resp 18; Pulse Ox 100% ; ke1 02:41 Body Mass Index 25.84 (79.38 kg, 175.26 cm) vc1 ED Course: 02:12 Patient arrived in ED. bp1 02:20 Virgil Farooq DO is Attending Physician. ms3 02:29 Luan Foster, ECHO is Primary Nurse. ke1 02:46 Triage completed. vc1 02:49 Arm band placed on right wrist. vc1 02:49 Patient has correct armband on for positive identification. Bed in low position. Call vc1 light in reach. Client placed on continuous cardiac and pulse oximetry monitoring. NIBP monitoring applied. 03:03 CXR XRAY In Process Unspecified. EDMS 05:14 No provider procedures requiring assistance completed. Patient did not have IV access ke1 during this emergency room visit. Administered Medications: No medications were administered Medication: 05:15 VIS not applicable for this client. ke1 Outcome: 04:47 Discharge ordered by . ms3 05:14 Discharged to home ambulatory. ke1 05:14 Condition: good 05:14 Discharge instructions given to patient. 05:16 Patient left the ED. ke1 Signatures: Dispatcher [employer] EDMS Virgil Farooq DO DO ms3 Iris Leonard bp1 Judith Dowd RN RN vc1 Luan Foster RN RN ke1 Corrections: (The following items were deleted from the chart) 05:14 02:49 GI: vc1 ke1
--- NOTE | 2021-11-11 04:48 | EDPHYS ---
Physician Documentation [facility] Name: Wanda Wise Age: 41 yrs Sex: Male : 1980 Arrival Date: 11/11/2021 Time: 02:12 Bed 8 Private MD: ED Physician Virgil Farooq HPI: 11/11 04:49 This 41 yrs old Male presents to ER via Ambulatory with complaints of Cough, ms3 Abdominal Pain. 04:49 The patient or guardian reports cough, that is constant. Onset: The symptoms/episode ms3 began/occurred 2 day(s) ago. Severity of symptoms: At their worst the symptoms were moderate, a " 6" out of "10", in the emergency department the symptoms are unchanged. Modifying factors: The symptoms are alleviated by nothing, the symptoms are aggravated by nothing. Associated signs and symptoms: Pertinent negatives: nausea, vomiting. The patient has been recently seen at the [facility] Department, this week. 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 ms3 Historical: - Allergies: 02:46 No Known Allergies; vc1 - PMHx: 02:46 HEARING IMPAIRED; Kidney stones; vc1 - PSHx: 02:46 None; vc1 - Immunization history:: Adult Immunizations up to date, Client reports receiving the 2nd dose of the Covid vaccine, Flu vaccine is up to date. - Social history:: Smoking status: Patient/guardian denies using tobacco, the patient reports quitting approximately 5 years ago. ROS: 04:49 Eyes: Negative for injury, pain, redness, and discharge, ENT: Negative for injury, ms3 pain, and discharge, Neck: Negative for injury, pain, and swelling, Cardiovascular: Negative for chest pain, and palpitations. MS/Extremity: Negative for injury and deformity, Skin: Negative for injury, rash, and discoloration. 04:49 Respiratory: Positive for cough, with yellow sputum. 04:49 Abdomen/GI: Positive for abdominal pain. 04:49 All other systems are negative. Exam: 04:49 Constitutional: This is a well developed, well nourished patient who is awake, alert, ms3 and in no acute distress. Neck: Trachea midline, no cervical lymphadenopathy. Supple, full range of motion without nuchal rigidity, or vertebral point tenderness. No Meningismus. Chest/axilla: Normal chest wall appearance and motion. Nontender with no deformity. Cardiovascular: Regular rate and rhythm with a normal S1 and S2. No gallops, murmurs, or rubs. Normal PMI, no JVD. No pulse deficits. Respiratory: Lungs have equal breath sounds bilaterally, clear to auscultation and percussion. No rales, rhonchi or wheezes noted. No increased work of breathing, no retractions or nasal flaring. Abdomen/GI: Soft, non-tender, with normal bowel sounds. No distension or tympany. No guarding or rebound. No evidence of tenderness throughout. Skin: Warm, dry with normal turgor. Normal color with no rashes, no lesions, and no evidence of cellulitis. Psych: Awake, alert, with orientation to person, place and time. Behavior, mood, and affect are within normal limits. Vital Signs: 02:41 Pulse 78; Resp 19; Temp 98.1; Pulse Ox 99% on R/A; Weight 79.38 kg; Height 5 ft. 9 in. vc1 (175.26 cm); Pain 6/10; 05:15 BP 129 / 80; Pulse 74; Resp 18; Pulse Ox 100% ; ke1 02:41 Body Mass Index 25.84 (79.38 kg, 175.26 cm) vc1 MDM: 02:27 Patient medically screened. ms3 04:49 Differential Diagnosis: Bronchitis Upper Respiratory Infection Viral Syndrome ms3 Pneumonia. Data reviewed: vital signs, nurses notes, radiologic studies, plain films. Data interpreted: Pulse oximetry: on room air is 99 %. Interpretation: normal. Counseling: I had a detailed discussion with the patient and/or guardian regarding: the historical points, exam findings, and any diagnostic results supporting the discharge/admit diagnosis, radiology results, the need for outpatient follow up, to return to the emergency department if symptoms worsen or persist or if there are any questions or concerns that arise at home. 11/11 02:36 Order name: CXR XRAY ms3 Administered Medications: No medications were administered Disposition Summary: 11/11/21 04:47 Discharge Ordered Location: Home ms3 Condition: Stable ms3 Diagnosis - Acute upper respiratory infection, unspecified ms3 Followup: ms3 - With: Private Physician - When: 2 - 3 days - Reason: Recheck today's complaints Discharge Instructions: - Discharge Summary Sheet ms3 - Viral Respiratory Infection ms3 Forms: - Medication Reconciliation Form ms3 - Thank You Letter ms3 - Antibiotic Education ms3 - Prescription Opioid Use ms3 Prescriptions: - Tessalon Perles 100 mg Oral Capsule - take 1 capsule by ORAL route every 8 hours As needed; 15 capsule; Refills: 0, ms3 Product Selection Permitted Signatures: Dispatcher [employer] EDMS Virgil Farooq, DO ms3 Judith Dowd RN RN vc1
--- NOTE | 2021-11-11 15:28 | RAD REPORT ---
EXAM DESCRIPTION: RAD - Chest Single View - 11/11/2021 3:01 am CLINICAL HISTORY: 41 years, Male, COUGH COMPARISON: None. FINDINGS: Single view of the chest was obtained portable. No prior films are available for compariso n. The cardiomediastinal silhouette demonstrate to be unremarkable. The heart is not enlarged. The lung volume is slightly decreased. The thoracic aorta is unremarkable. Costophrenic angles are sharp. No areas of consolidation or masses are seen. The rest of the soft tissue and bony structures de monstrate to be unremarkable. IMPRESSION: No acute cardiopulmonary disease. Electronically signed by: Elder Lassiter MD 11/11/2021 4:02 AM CDT Due to temporary technical issues with the PACS/Fluency reporting system, reports are being signed by the in house radiologists without review as a courtesy to insure prompt reporting. The interpreting radiologist is fully responsible for the content of the report.
[2021-11-11 17:23] VITALS: TEMP 98.1
[2021-11-11 17:38] VITALS: BP 129/80; O2SAT 100
== END 2021-11-11 05:16 | disposition home or self-care (01) ==
LOC: ER 02:08
DX: J06.9 Acute upper respiratory infection, unspecified (principal); R10.9 Unspecified abdominal pain; Z87.442 Personal history of urinary calculi
CPT/HCPCS: 71045; 99283

== ENCOUNTER 2021-12-11 14:08 | Emergency (ER) | payer OTHER ==
--- OUTSIDE RECORDS SUMMARY | 2021-12-11 14:12 | XMS REPORT | Continuity of Care Document ---
:1980 Author Organization [facility] t Address [address] [place] [address] Care Team Providers Name Role Phone Kurt [...] [facility] [address] to the [facility] soles of Medical feet, wast Center off after 8-14 hours. May repeat in 10-14 days Triamcinolo Triamcinolo Yes Enrique 1 Common ne ne 5-13 [facility] applicatio Spirit Acetonide Acetonide 00:00: n - C [facility] 00 [facility] Omeprazole Omeprazole Yes Enrique 1 capsule Common 9- [facility] 00:00: - [facility] 00 [facility] Bacitracin Bacitracin Yes Enrique APPLY Common [facility] SMALL Spirit STRIP ON - [facility] LOWER St EYELID OF [facility] AFFECTED Medical EYE EVERY Center 4 HOURS Immunizations Ordered Immunization Filled Immunization Date Status Commen ts Source Name Name Fluzone Fluzone 2019-09-16 Completed [facility] 00:00:00 [facility] Procedures This patient has no known procedures. Encounters Start End Encounter Admission Attending Care Care Encounter Source Date/Time Date/Time Type Type Clinicians Facility Department ID 2021-07-26 Outpatient Hicks, STLMLC STLMLC [id number] Common 13:04:39 Enrique [id number] [facility] 2021-07-26 Outpatient Hicks, STLMLC STLMLC [id number] Common 12:58:58 Enrique [id number] [facility] 2021-07-26 Outpatient Hicks, STLMLC STLMLC [id number] Common 11:48:10 Enrique [id number] [facility] 2021-07-26 Outpatient Hicks, STLMLC STLMLC [id number] Common 11:19:50 Enrique [id number] [facility] 2021-07-26 Outpatient Hicks, STLMLC STLMLC [id number] Common 11:19:37 Enrique [id number] [facility] 2021-07-26 Outpatient Hicks, STLMLC STLMLC [id number] Common 11:19:29 Enrique [id number] [facility] 2021-07-26 Outpatient Hicks, STLMLC STLMLC [id number] Common 11:12:34 Enrique [id number] [facility] 2020-11-15 2020-11-15 Outpatient STLMLC STLMLC [id number] Common 00:00:00 00:00:00 [facility] 2020-03-22 2020-03-22 Outpatient STLMLC STLMLC [id number] Common 00:00:00 00:00:00 [facility] 2019-12-01 2019-12-01 [facility] [id number] Common 16:30:00 16:30:00 [employer] [facility] it [place] [facility] 2019-11-11 2019-11-11 [facility] [id number] Common 14:30:00 14:30:00 t Dctio [facility] it [place] [facility] 2019-11-10 2019-11-10 [facility] [id number] Common 14:07:00 14:07:[address] [facility] 2019-10-28 2019-10-28 [facility] [id number] Common 14:30:00 14:30:[address] [facility] 2019-10-28 2019-10-28 Out[facility] [id number] Common 14:30:00 14:30:[address] [facility] 2019-09-16 2019-09-16 [facility] [id number] Common 13:30:00 13:30:[address] [facility] 2019-08-25 2019-08-25 Out[facility] [id number] Common 15:15:00 15:15:[address] [facility] 2018-03-25 2018-03-25 [facility] [id number] Common 10:30:00 10:30:00 t Specialty/U Sp [place] Specialty rology - [facility] 2018-03-21 2018-03-21 [facility] [id number] Common 11:16:00 11:16:00 t Specialty/U Sp [place] Specialty rology - [facility] 2018-03-20 2018-03-20 [facility] [id number] Common 11:23:00 11:23:00 t Specialty/U Sp [place] Specialty rology - [facility] 2018-03-11 2018-03-11 [facility] [id number] Common 09:45:00 09:45:00 t Specialty/U Sp [place] Specialty rology - [facility] 2018-02-28 2018-02-28 Out[facility] [id number] Common 09:30:00 09:30:[address] [facility] 2017-12-12 2017-12-12 Outpatient Luep Reb[facility] [id number] Common 11:00:00 11:00:[address] [facility] 2017-10-31 2017-10-31 Outpatient Lupe Re[facility] [id number] Common 13:30:00 13:30:[address] [facility] Results This patient has no known results.
[2021-12-11 15:44] LABS: Urine Blood Negative (Negative); Urine Glucose Negative (Negative); Urine Protein Trace (Negative); Urine Specific Gravity >=1.030 (1.005-1.030)
[2021-12-11 15:46] LABS: Absolute Lymphocytes (CBC) 1.6 K/uL (0.7-4.9); Hematocrit 44.4 % (39.6-49.0); Lymphocytes % 24.4 % (15.3-44.8); MPV 8.2 fL (7.6-11.3); RBC Red Blood Cell Count 5.07 M/uL (4.33-5.43)
[2021-12-11 16:01] LABS: Albumin 3.9 g/dL (3.4-5.0); Bilirubin Total 0.4 mg/dL (0.2-1.0); Protein, Total 7.5 g/dL (6.4-8.2)
[2021-12-11 16:13] LABS: Urine Bacteria <20 /HPF (NONE SEEN); Urine Mucus 1+ /HPF (NONE SEEN); Urine RBC <5 /HPF (NONE SEEN)
--- NOTE | 2021-12-11 16:39 | RAD REPORT ---
EXAM DESCRIPTION: CT - Abdomen Pelvis Wo Contrast - 12/11/2021 4:28 pm CLINICAL HISTORY: Abdominal pain. Epigastric pain COMPARISON: Abdomen Pelvis W Contrast dated 10/03/2019 TECHNIQUE: CT imaging of the abdomen and pelvis was performed without contrast. Solid organ, bowel a nd vascular assessment is limited due to lack of IV and oral contrast. All CT scans are performed using dose optimization technique as appropriate and may include automated exposure control or mA/KV adjustment according to patient size. FINDINGS: The lower lung [place] are clear. The liver, spleen, pancreas, adrenal glands are within normal limits for a limited non-contrast exami nation.Punctate calculi are seen in both kidneys without hydronephrosis. No bowel obstruction, free air, free fluid or abscess. Small fat containing right inguinal hernia. Th e appendix is normal. The osseous structures are within normal limits. IMPRESSION: No acute intra-abdominal or pelvic findings. Punctate bilateral nephrolithiasis without hydronephrosis. A limited non-contrast examination was performed as detailed.
[2021-12-11] MEDS ORDERED: LIDOCAINE VISCOUS 2% SOLN 15 ML UDC ONE (17:16)
[2021-12-11] MEDS ORDERED: MAGNES/ALUMIN/SIMET 30ML UCUP ONE (17:16)
[2021-12-11] MEDS ORDERED: PANTOPRAZOLE 40 MG INJ ONE (17:16)
[2021-12-11] MEDS ORDERED: METHYLPREDNISOLONE 125 MG INJ ONE (17:25)
[2021-12-11] MEDS ORDERED: DIPHENHYDRAMINE 50 MG/ML VIAL ONE (17:25)
--- NOTE | 2021-12-11 18:08 | ER ---
Nurse's Notes [facility] Name: Wanda Wise Age: 41 yrs Sex: Male : 1980 Arrival Date: 12/11/2021 Time: 14:11 Bed 11 Private MD: Diagnosis: Epigastric pain Presentation: 12/11 15:04 Chief complaint: Patient states: ABD pain x1 month with N/V/D with cough; states hurts vg1 most in the morning and it feels like cramps. Pt is hearing impaired. Coronavirus screen: Vaccine status: Patient reports receiving the 2nd dose of the covid vaccine. Client denies travel out of the [place] in the last 14 days. Ebola Screen: Patient denies exposure to infectious person. Patient denies travel to an Ebola-affected area in the 21 days before illness onset. Initial Sepsis Screen: Does the patient meet any 2 criteria? No. Patient's initial sepsis screen is negative. Does the patient have a suspected source of infection? No. Patient's initial sepsis screen is negative. Risk Assessment: Do you want to hurt yourself or someone else? Patient reports no desire to harm self or others. Onset of symptoms was October 2021. 15:04 Method Of Arrival: Ambulatory vg1 15:04 Acuity: AALIYAH 3 vg1 Triage Assessment: 15:10 General: Appears uncomfortable, Behavior is calm, cooperative. Pain: Complains of pain vg1 in epigastric area Pain currently is 7 out of 10 on a pain scale. GI: Abdomen is flat, Reports cramping, diarrhea, nausea, vomiting. Historical: - Allergies: 15:10 No Known Allergies; vg1 - Home Meds: 15:10 None [Active]; vg1 - PMHx: 15:10 HEARING IMPAIRED; Kidney stones; vg1 - PSHx: 15:10 None; vg1 - Immunization history:: Client reports receiving the 2nd dose of the Covid vaccine. - Social history:: Smoking status: Patient/guardian denies using tobacco, the patient reports quitting approximately 6 years ago. Screenin:34 Abuse screen: Denies threats or abuse. Nutritional screening: No deficits noted. ap3 Tuberculosis screening: No symptoms or risk factors identified. Fall Risk None identified. Assessment: 18:16 Reassessment: Patient appears in no apparent distress at this time. Pt reports he is ss feeling much better. Ready to go home. Ambulated to restroom with steady gait. 18:34 GI: Bowel sounds ap3 Vital Signs: 15:04 BP 132 / 76; Pulse 75; Resp 16; Temp 97.8(TE); Pulse Ox 99% on R/A; Weight 77.11 kg; vg1 Height 5 ft. 9 in. (175.26 cm); Pain 7/10; 15:04 Body Mass Index 25.10 (77.11 kg, 175.26 cm) vg1 ED Course: 14:11 Patient arrived in ED. rg4 14:30 Pierre Schwartz PA is PHCP. cp 14:30 Kt Aguayo MD is Attending Physician. cp 15:09 Triage completed. vg1 15:10 Arm band placed on. vg1 15:44 Inserted saline lock: 20 gauge in left antecubital area, using aseptic technique. Blood tp1 collected. 16:30 CT Abd/Pelvis - Without Contrast In Process Unspecified. EDMS 16:41 Suzan Rios, ECHO is Primary Nurse. ss 18:07 Nahum Turner MD is Referral Physician. cp 18:34 Patient has correct armband on for positive identification. Bed in low position. Call ap3 light in reach. Side rails up X 1. 18:34 No provider procedures requiring assistance completed. IV discontinued, intact, ap3 bleeding controlled, No redness/swelling at site. Pressure dressing applied. Administered Medications: 17:15 Drug: GI Cocktail without - (Maalox Suspension 30 ml, Lidocaine Liquid 2 % 15 ss ml) Route: PO; 18:15 Follow up: Response: No adverse reaction ss 17:17 Drug: ProTONIX (pantoprazole) 40 mg Route: IVP; Site: left antecubital; ss 18:15 Follow up: Response: No adverse reaction ss 17:25 Drug: Benadryl (diphenhydrAMINE) 50 mg Route: IVP; Site: left antecubital; ss 18:15 Follow up: Response: No adverse reaction ss 17:27 Drug: SOLU-Medrol (methylPrednisoLONE) 125 mg Route: IVP; Site: left antecubital; ss 18:15 Follow up: Response: No adverse reaction ss 17:28 Not Given (Other Intervention Used): ProTONIX (pantoprazole) 40 mg PO once ss Medication: 18:16 VIS not applicable for this client. ss Outcome: 18:07 Discharge ordered by . cp 18:34 Discharged to home ambulatory. ap3 18:34 Condition: good 18:34 Discharge instructions given to patient, Instructed on discharge instructions, follow up and referral plans. medication usage, Demonstrated understanding of instructions, follow-up care, medications, Prescriptions given X 2. 18:34 Patient left the ED. ap3 Signatures: Dispatcher [employer] EDMS Suzan Rios RN RN ss Pierre Schwartz PA PA cp Garcia, Rubi rg4 Raisa Koo RN RN ap3 Bety Shine RN RN vg1 Dominique Ríos tp1 Corrections: (The following items were deleted from the chart) 15:10 15:04 77.11 kg; Height 5 ft. 9 in.; BMI: 25.1; Pain 7/10; vg1 vg1 15:11 15:10 Home Meds: loratadine Oral; vg1 vg1 17:28 17:17 ProTONIX (pantoprazole) 40 mg PO ss ss
--- NOTE | 2021-12-11 18:08 | EDPHYS ---
Physician Documentation [facility] Name: Wanda Wise Age: 41 yrs Sex: Male : 1980 Arrival Date: 12/11/2021 Time: 14:11 Bed 11 Private MD: ED Physician Kt Aguayo HPI: 12/11 15:30 This 41 yrs old Male presents to ER via Ambulatory with complaints of cp Abdominal Pain. 15:30 The patient presents with abdominal pain in the epigastric area, in the upper abdomen. cp Onset: The symptoms/episode began/occurred 1 month(s) ago. The symptoms do not radiate. Associated signs and symptoms: Pertinent positives: nausea and vomiting, Pertinent negatives: anorexia, chest pain, constipation, diarrhea, fever, shortness of breath. The symptoms are described as waxing/waning. Patient reports pain and vomiting worse in mornings. Historical: - Allergies: 15:10 No Known Allergies; vg1 - Home Meds: 15:10 None [Active]; vg1 - PMHx: 15:10 HEARING IMPAIRED; Kidney stones; vg1 - PSHx: 15:10 None; vg1 - Immunization history:: Client reports receiving the 2nd dose of the Covid vaccine. - Social history:: Smoking status: Patient/guardian denies using tobacco, the patient reports quitting approximately 6 years ago. ROS: 15:35 Constitutional: Negative for body aches, chills, fever, poor PO intake. cp 15:35 Eyes: Negative for injury, pain, redness, and discharge. cp 15:35 ENT: Negative for drainage from ear(s), ear pain, sore throat, difficulty swallowing, difficulty handling secretions. 15:35 Cardiovascular: Negative for chest pain, edema, palpitations. 15:35 Respiratory: Negative for cough, shortness of breath, wheezing. 15:35 Abdomen/GI: Positive for abdominal pain, nausea and vomiting, Negative for diarrhea, constipation, anorexia, hematemesis, black/tarry stool, rectal bleeding. 15:35 Back: Negative for pain at rest, pain with movement. 15:35 Neuro: Negative for altered mental status, dizziness, headache, weakness. 15:35 All other systems are negative. Exam: 15:40 Constitutional: The patient appears in no acute distress, alert, awake, cp non-diaphoretic, non-toxic, well developed, well nourished. 15:40 Head/Face: Normocephalic, atraumatic. cp 15:40 Eyes: Periorbital structures: appear normal, Conjunctiva: normal, no exudate, no injection, Sclera: no appreciated abnormality, Lids and lashes: appear normal, bilaterally. 15:40 ENT: External ear(s): are unremarkable, Nose: is normal, Mouth: Lips: moist, Oral mucosa: moist, Posterior pharynx: Airway: no evidence of obstruction, patent. 15:40 Chest/axilla: Inspection: normal, Palpation: is normal, no crepitus, no tenderness. 15:40 Cardiovascular: Rate: normal, Rhythm: regular. 15:40 Respiratory: the patient does not display signs of respiratory distress, Respirations: normal, no use of accessory muscles, no retractions, labored breathing, is not present, Breath sounds: are clear throughout, no decreased breath sounds, no stridor, no wheezing. 15:40 Abdomen/GI: Inspection: abdomen appears normal, Bowel sounds: active, all quadrants, Palpation: soft, in all quadrants, mild abdominal tenderness, in the right upper quadrant and left upper quadrant, rebound tenderness, is not appreciated, voluntary guarding, is not appreciated, involuntary guarding, is not appreciated. 15:40 Back: pain, is absent, ROM is normal. 15:40 Neuro: Orientation: to person, place \T\ time. Mentation: is normal, Cerebellar function: is grossly normal, Motor: moves all fours, strength is normal, Sensation: is normal. Vital Signs: 15:04 BP 132 / 76; Pulse 75; Resp 16; Temp 97.8(TE); Pulse Ox 99% on R/A; Weight 77.11 kg; vg1 Height 5 ft. 9 in. (175.26 cm); Pain 7/10; 15:04 Body Mass Index 25.10 (77.11 kg, 175.26 cm) vg1 MDM: 16:00 Differential diagnosis: cholecystitis, Cholelithiasis, gastroesophageal reflux disease, cp pancreatitis, Peptic Ulcer Disease, Perf. Duodenal Ulcer, Perf. Gastric Ulcer, Pyelonephritis, Ureterolithiasis, urinary tract infection. 16:19 Patient medically screened. cp 18:05 Data reviewed: vital signs, nurses notes, lab test result(s), radiologic studies, CT cp scan. 18:05 Counseling: I had a detailed discussion with the patient and/or guardian regarding: the cp historical points, exam findings, and any diagnostic results supporting the discharge/admit diagnosis, lab results, radiology results, the need for outpatient follow up, a manager social, to return to the emergency department if symptoms worsen or persist or if there are any questions or concerns that arise at home. Response to treatment: the patient's symptoms have markedly improved after treatment, and as a result, I will discharge patient. Special discussion: Based on the patient's Hx, exam, and Dx evaluation, there is no indication for emergent surgery or inpatient Tx. It is understood by the patient/guardian that if the Sx's persist or worsen they need to return immediately for re-evaluation. 12/11 15:10 Order name: CBC with Diff; Complete Time: 16:07 cp 12/11 15:10 Order name: CMP; Complete Time: 16:07 cp 12/11 16:38 Interpretation: Normal except: CL 110; CRE 1.68; GFR 52; ALK 122; GLOB 3.6. cp 12/11 15:10 Order name: Lipase; Complete Time: 16:07 cp 12/11 15:10 Order name: Urine Microscopic Only; Complete Time: 16:38 cp 12/11 15:44 Order name: Urine Dipstick-Ancillary; Complete Time: 16:07 EDMS 12/11 15:10 Order name: IV Saline Lock; Complete Time: 16:16 cp 12/11 15:10 Order name: Labs collected and sent; Complete Time: 16:16 cp 12/11 16:08 Order name: CT Abd/Pelvis - Without Contrast; Complete Time: 16:48 cp 12/11 15:10 Order name: Urine Dipstick-Ancillary (obtain specimen); Complete Time: 16:16 cp 12/11 18:00 Order name: PO challenge; Complete Time: 18:15 cp Administered Medications: 17:15 Drug: GI Cocktail without - (Maalox Suspension 30 ml, Lidocaine Liquid 2 % 15 ss ml) Route: PO; 18:15 Follow up: Response: No adverse reaction ss 17:17 Drug: ProTONIX (pantoprazole) 40 mg Route: IVP; Site: left antecubital; ss 18:15 Follow up: Response: No adverse reaction ss 17:25 Drug: Benadryl (diphenhydrAMINE) 50 mg Route: IVP; Site: left antecubital; ss 18:15 Follow up: Response: No adverse reaction ss 17:27 Drug: SOLU-Medrol (methylPrednisoLONE) 125 mg Route: IVP; Site: left antecubital; ss 18:15 Follow up: Response: No adverse reaction ss 17:28 Not Given (Other Intervention Used): ProTONIX (pantoprazole) 40 mg PO once ss Disposition: 12/12 15:20 Co-signature as Attending Physician, Kt Aguayo MD. rn Disposition Summary: 12/11/21 18:07 Discharge Ordered Location: Home cp Problem: new cp Symptoms: have improved cp Condition: Stable cp Diagnosis - Epigastric pain cp Followup: cp - With: Nahum Turner MD - When: 1 week - Reason: Recheck today's complaints Discharge Instructions: - Discharge Summary Sheet cp - Abdominal Pain, Adult cp - Gastroesophageal Reflux Disease, Adult cp Forms: - Medication Reconciliation Form cp - Thank You Letter cp - Antibiotic Education cp - Prescription Opioid Use cp Prescriptions: - Protonix 40 mg Oral Tablet - take 1 tablet by ORAL route once daily; 30 tablet; Refills: 0, Product cp Selection Permitted - Zofran 4 mg Oral Tablet - take 1 tablet by ORAL route every 12 hours As needed; 20 tablet; Refills: 0, cp Product Selection Permitted Signatures: Dispatcher [employer] EDKt Burgos MD MD rn Smirch, Shelby, RN RN Pierre Gonzalez PA PA cp Garcia, Victoria RN RN vg1 Corrections: (The following items were deleted from the chart) 12/11 15:11 15:10 Home Meds: loratadine Oral; vg1 vg1 16:16 15:13 Abdomen Pelvis W Con+CT.RAD.BRZ ordered. EDMS EDMS
[2021-12-11 18:46] VITALS: BP 132/76; TEMP 97.8; O2SAT 99
== END 2021-12-11 18:34 | disposition home or self-care (01) ==
LOC: ER 14:08
DX: R10.13 Epigastric pain (principal)
CPT/HCPCS: 85025; 36415; 83690; 80053; 74176; J1200; C9113; J2930; 81003; 81015; 96374; 96375; 99284

== ENCOUNTER 2022-08-16 01:52 | Emergency (ER) | payer OTHER ==
--- OUTSIDE RECORDS SUMMARY | 2022-08-16 01:56 | XMS REPORT | Continuity of Care Document ---
:1980 Author Organization [facility] t Address 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 Social History Social Habit Start Date Stop Date Quantity Comments Source History of Tobacco Use Co mmon [facility] Sex Assigned At Com mon [facility] Smoking Status Start Date Stop Date Source Former Smoker 2021-12-28 00:00:00 2021-12-28 00:00:00 Common S pirit [facility] Medications Ordered Filled Start Stop Current Ordering Indication Dosage Frequency Signature Comments Components Source Medication Medication Date Date Medication? Clinician (SIG) Name Name Naproxen Naproxen 0 No Naproxen 500 MG 500 MG 6-30 500 MG 00:00: 00 Naproxen Naproxen 2021-0 No Naproxen 500 MG 500 MG 6-30 500 MG 00:00: 00 Naproxen Naproxen 2021-0 No Naproxen 500 MG 500 MG 6-30 500 MG 00:00: 00 Permethrin Permethrin Yes Enrique 1 Common 11-30 [facility] applicatio Spirit 00:00: n from - [facility] [address] [facility] the [facility] off after 8-14 hours. May repeat in 10-14 days Triamcinolo Triamcinolo 2020-0 Yes Enrique 1 Common ne ne 5- [facility] applicatio Spirit Acetonide Acetonide 00:00: n - C HI 00 [facility] Kenalog Kenalog 2020-0 No 40mg Common (Triamcinol (Triamcinol 5-13 S pirit one) one) 00:00: - [facility] 00 [facility] Kenalog Kenalog 2020-0 No 40mg Common (Triamcinol (Triamcinol 5-13 S pirit one) one) 00:00: - [facility] 00 [facility] Kenalog Kenalog 2020-0 No 40mg Common (Triamcinol (Triamcinol 5-13 S pirit one) one) 00:00: - [facility] 00 [facility] Kenalog Kenalog 2020-0 No 40mg Common (Triamcinol (Triamcinol 5-13 S pirit one) one) 00:00: - [facility] 00 [facility] Omeprazole Omeprazole Yes Enrique 1 capsule Common 03-21 Hicks Spirit 00:00: - [facility] 00 [facility] Omeprazole Omeprazole No 1{capsu QD Omeprazole 40 MG 40 MG 03-21 le} 40 MG 00:00: 00 Omeprazole Omeprazole No 1{capsu QD Omeprazole 40 MG 40 MG 03-21 le} 40 MG 00:00: 00 Omeprazole Omeprazole No 1{capsu QD Omeprazole 40 MG 40 MG 03-21 le} 40 MG 00:00: 00 Omeprazole Omeprazole 2018-0 No 1{capsu QD Omeprazole 40 MG 40 MG 9-21 le} 40 MG 00:00: 00 Bacitracin Bacitracin Yes Enrique APPLY Common Hicks SMALL Spirit STRIP ON - [facility] LOWER [facility] 4 HOURS Naphcon-A Naphcon-A No QID Naphcon-A 0.025-0.3 % 0.025-0.3 % 0.025-0.3 % Bacitracin Bacitracin No Bacitracin 500 UNIT/GM 500 UNIT/GM 500 UNIT/GM Permethrin Permethrin No Permethrin 5 % 5 % 5 % Naphcon-A Naphcon-A No QID Naphcon-A 0.025-0.3 % 0.025-0.3 % 0.025-0.3 % Bacitracin Bacitracin No Bacitracin 500 UNIT/GM 500 UNIT/GM 500 UNIT/GM Permethrin Permethrin No Permethrin 5 % 5 % 5 % Naphcon-A Naphcon-A No QID Naphcon-A 0.025-0.3 % 0.025-0.3 % 0.025-0.3 % Bacitracin Bacitracin No Bacitracin 500 UNIT/GM 500 UNIT/GM 500 UNIT/GM Permethrin Permethrin No Permethrin 5 % 5 % 5 % Naphcon-A Naphcon-A No QID Naphcon-A 0.025-0.3 % 0.025-0.3 % 0.025-0.3 % Bacitracin Bacitracin No Bacitracin 500 UNIT/GM 500 UNIT/GM 500 UNIT/GM Permethrin Permethrin No Permethrin 5 % 5 % 5 % Immunizations Ordered Immunization Filled Immunization Date Status Commen ts Source Name Name Fluzone Fluzone 2019-09-16 Completed [facility] 13:46:00 - [facility] Fluzone Fluzone 2019-09-16 Completed [facility] 13:46:00 - [facility] Fluzone Fluzone 2019-09-16 Completed Common [facility] 13:46:00 - [facility] Fluzone Fluzone 2019-09-16 Completed [facility] 13:46:00 - [facility] Fluzone Fluzone 2019-09-16 Completed [facility] 00:00:00 - [facility] Vital Signs Vital Name Observation Time Observation Value Comments Source height 2021-12-28 08:00:00 69 [in_i] Common [facility] weight 2021-12-28 08:00:00 183.7 [lb_av] [facility] temperature 2021-12-28 08:00:00 97.9 [degF] [facility] bmi 2021-12-28 08:00:00 27.12 kg/m2 [facility] oximetry 2021-12-28 08:00:00 99 % [facility] respiratory rate 2021-12-28 08:00:00 18 /min Comm on [facility] blood pressure 2021-12-28 08:00:00 115 mm[Hg] [facility] systolic [facility] blood pressure 2021-12-28 08:00:00 68 mm[Hg] [facility] diastolic [facility] respiratory rate 2021-12-28 08:00:00 18 /min Comm on [facility] blood pressure 2021-12-28 08:00:00 115 mm[Hg] [facility] systolic [facility] blood pressure 2021-12-28 08:00:00 68 mm[Hg] [facility] diastolic [facility] height 2021-12-28 08:00:00 69 [in_i] [facility] weight 2021-12-28 08:00:00 183.7 [lb_av] [facility] temperature 2021-12-28 08:00:00 97.9 [degF] [facility] bmi 2021-12-28 08:00:00 27.12 kg/m2 [facility] oximetry 2021-12-28 08:00:00 99 % [facility] Procedures This patient has no known procedures. Encounters Start End Encounter Admission Attending Care Care Encounter Source Date/Time Date/Time Type Type Clinicians Facility Department ID 2021-12-28 Outpatient Hicks, STLMLC STLMLC [id number] Common 07:37:00 Enrique [facility] 2021-12-27 Outpatient Hicks, STLMLC STLMLC [id number] Common 09:47:01 Enrique [facility] 2021-07-26 Outpatient Hicks, STLMLC STLMLC [id number] Common 13:04:39 Enrique [id number] [facility] 2021-07-26 Outpatient Hicks, STLMLC STLMLC [id number] Common 12:58:58 Enrique 64829 [facility] 2021-07-26 Outpatient Hicks, STLMLC STLMLC [id number] Common 11:48:10 Enrique [id number] [facility] 2021-07-26 Outpatient Hicks, STLMLC STLMLC [id number] Common 11:19:50 Enrique [id number] [facility] 2021-07-26 Outpatient Hicks, STLMLC STLMLC [id number] Common 11:19:37 Enrique [id number] [facility] 2021-07-26 Outpatient Hicks, STLMLC STLMLC [id number] Common 11:19:29 Enrique [id number] [facility] 2021-07-26 Outpatient Hicks, STLMLC STLMLC [id number] Common 11:12:34 Enrique [id number] [facility] 2021-12-28 2021-12-28 (TEL) STLMLC STLMLC [id number] Co mmon 00:00:00 00:00:00 [facility] 2021-12-28 2021-12-28 SUB ANNUAL STLMLC STLMLC [id number] Common 00:00:00 00:00:00 MCR [facility] VISIT [facility] 2021-12-28 2021-12-28 OFFICE STLMLC STLMLC [id number] Co mmon 00:00:00 00:00:00 VISIT EST Spir it PT LEVEL 3 - [facility] 2021-12-13 2021-12-13 (TEL) STLMLC STLMLC [id number] Co mmon 00:00:00 00:00:00 [facility] 2020-11-15 2020-11-15 Outpatient STLMLC STLMLC [id number] Common 00:00:00 00:00:00 [facility] 2020-03-22 2020-03-22 Outpatient STLMLC STLMLC [id number] Common 00:00:00 00:00:00 [facility] 2019-12-01 2019-12-01 [facility] [id number] Common 16:30:00 16:30:00 [place] [address] [facility] 2019-11-11 2019-11-11 [facility] [id number] Common 14:30:00 14:30:00 [place] [address] [facility] 2019-11-10 2019-11-10 [facility] [id number] Common 14:07:00 14:07:00 [place] [address] [facility] 2019-10-28 2019-10-28 [facility] [id number] Common 14:30:00 14:30:00 [place] [address] [facility] 2019-10-28 2019-10-28 [facility] [id number] Common 14:30:00 14:30:00 [place] [address] [facility] 2019-09-16 2019-09-16 [facility] [id number] Common 13:30:00 13:30:00 [place] [address] [facility] 2019-08-25 2019-08-25 [facility] [id number] Common 15:15:00 15:15:00 [place] [address] [facility] 2018-03-25 2018-03-25 [facility] [id number] Common 10:30:00 10:30:00 t Specialty/U [place] Specialty rology - [facility] 2018-03-21 2018-03-21 [id number] Common 11:16:00 11:16:00 t Specialty/U [place] Specialty rology - [facility] /Urology Clinic [facility] 2018-03-20 2018-03-20 [facility] [id number] Common 11:23:00 11:23:00 t Specialty/U Sp [place] Specialty rology - [facility] 2018-03-11 2018-03-11 [facility] [id number] Common 09:45:00 09:45:00 t Specialty/U Sp [place] Specialty rology - [facility] /Urology Clinic [facility] 2018-02-28 2018-02-28 [facility] [id number] Common 09:30:00 09:30:00 t [place] [facility] [facility] [address] [facility] 2017-12-12 2017-12-12 [facility] [id number] Common 11:00:00 11:00:00 [place] [facility] [facility] [address] [facility] 2017-10-31 2017-10-31 [facility] [id number] Common 13:30:00 13:30:00 [place] [facility] [facility] Results This patient has no known results.
[2022-08-16] MEDS ORDERED: LIDOCAINE VISCOUS 2% SOLN 15 ML UDC ONE (02:18)
[2022-08-16] MEDS ORDERED: ONDANSETRON 4 MG (ODT) TAB ONE (02:24)
[2022-08-16 03:09] LABS: SARS-COV-2 RT PCR NEGATIVE (NEGATIVE)
--- NOTE | 2022-08-16 03:22 | ER ---
Nurse's Notes [facility] Name: Wanda Wise Age: 42 yrs Sex: Male : 1980 Arrival Date: 08/16/2022 Time: 01:55 Bed 17 Private MD: Diagnosis: Acute tonsillitis, unspecified Presentation: 08/16 02:01 Ebola Screen: No symptoms or risks identified at this time. Initial Sepsis Screen: Does kd3 the patient meet any 2 criteria? No. Patient's initial sepsis screen is negative. Does the patient have a suspected source of infection? No. Patient's initial sepsis screen is negative. Risk Assessment: Do you want to hurt yourself or someone else? Patient reports no desire to harm self or others. 02:01 Method Of Arrival: Ambulatory kd3 02:03 Chief complaint: Patient states: last week on Saturday I was very sick and had a sore kd3 throat and a fever. I felt better for two or three days but now I am sick again. I feel like something is swollen in my throat and it hurts. I have had a bit of a cough but no issues swallowing. Coronavirus screen:. Coronavirus screen: Vaccine status: Patient reports receiving the 2nd dose of the covid vaccine. Onset of symptoms. 02:03 Acuity: AALIYAH 3 kd3 Triage Assessment: 02:02 General: Appears in no apparent distress. Behavior is calm, cooperative. Neuro: Level kd3 of Consciousness is awake, alert, obeys commands, Oriented to person, place, time, situation. Respiratory: Airway is patent Trachea midline Respiratory effort is even, unlabored, Respiratory pattern is regular, symmetrical. 02:03 Pain:. kd3 Historical: - PMHx: 02:02 HEARING IMPAIRED; Kidney stones; kd3 - Immunization history:: Adult Immunizations up to date. - Social history:: Smoking status: unknown. Screenin:22 [facility] ED Fall Risk Assessment (Adult) History of falling in the last 3 months, lg3 including since admission No falls in past 3 months (0 pts). Abuse screen: Denies threats or abuse. Denies injuries from another. Nutritional screening: No deficits noted. Tuberculosis screening: No symptoms or risk factors identified. Assessment: 03:22 General: Appears in no apparent distress. comfortable, Behavior is calm, cooperative. lg3 Pain: Complains of pain in throat Pain currently is 4 out of 10 on a pain scale. Neuro: No deficits noted. Calderon Agitation-Sedation Scale (RASS): 0 - Alert and Calm Level of Consciousness is awake, alert, obeys commands, Oriented to person, place, time, situation. Cardiovascular: No deficits noted. Denies chest pain, shortness of breath, Capillary refill < 3 seconds Clubbing of nail beds is absent JVD is absent Patient's skin is warm and dry. Respiratory: Airway is patent Trachea midline Respiratory effort is even, unlabored, Respiratory pattern is regular, symmetrical, Breath sounds are clear bilaterally. GI: No deficits noted. No signs and/or symptoms were reported involving the gastrointestinal system. Abdomen is flat, non-distended. : No deficits noted. No signs and/or symptoms were reported regarding the genitourinary system. EENT: Throat is reddened Reports pain when swallowing. Derm: No deficits noted. No signs and/or symptoms reported regarding the dermatologic system. Skin is intact, is healthy with good turgor, Skin is dry, Skin is normal, Skin temperature is warm. Musculoskeletal: No deficits noted. No signs and/or symptoms reported regarding the musculoskeletal system. Circulation, motion, and sensation intact. Range of motion: intact in all extremities. Vital Signs: 01:59 BP 142 / 88; Pulse 77; Resp 19; Temp 98.2(O); Pulse Ox 97% on R/A; kd3 02:16 Weight 87.09 kg; kd3 04:02 BP 136 / 81; Pulse 74; Resp 18 S; Pulse Ox 98% on R/A; lg3 ED Course: 01:55 Patient arrived in ED. ja2 01:56 Pierre Schwartz PA is PHCP. cp 01:56 Kit Munoz MD is Attending Physician. cp 02:02 Arm band placed on left wrist. kd3 02:08 Triage completed. kd3 02:25 COVID-19/FLU A+B Sent. kd3 02:25 Strep Sent. kd3 03:20 Bridgette Padgett MD is Referral Physician. cp 03:22 Patient has correct armband on for positive identification. Bed in low position. Call lg3 light in reach. Side rails up X 1. Door closed. Noise minimized. Warm blanket given. 03:22 No provider procedures requiring assistance completed. Patient did not have IV access lg3 during this emergency room visit. 04:02 Sabrina Rondon, RN is Primary Nurse. lg3 Administered Medications: 02:16 Drug: Viscous Lidocaine Liquid (4 %) 5 ml Route: Mucous Membrane; kd3 04:01 Follow up: Response: No adverse reaction lg3 02:22 Drug: Zofran (Ondansetron) 4 mg Route: PO; kd3 04:01 Follow up: Response: No adverse reaction lg3 04:01 Drug: Augmentin (Amoxicillin-Clavulanate) 875 mg Route: PO; lg3 04:02 Follow up: Response: No adverse reaction lg3 04:01 Drug: Decadron (dexamethasone) 10 mg Route: PO; lg3 04:02 Follow up: Response: No adverse reaction lg3 Medication: 03:22 VIS not applicable for this client. lg3 Outcome: 03:21 Discharge ordered by . alex 04:02 Discharged to home ambulatory. lg3 04:02 Condition: stable 04:02 Discharge instructions given to patient, Instructed on discharge instructions, follow up and referral plans. medication usage, Demonstrated understanding of instructions, follow-up care, medications, Prescriptions given X 2. 04:03 Patient left the ED. lg3 Signatures: Pierre Schwartz PA PA cp Gibson, Lacie, RN RN lg3 Yesenia Diaz Kyli RN RN kd3
--- NOTE | 2022-08-16 03:22 | EDPHYS ---
Physician Documentation [facility] Name: Wanda Wise Age: 42 yrs Sex: Male : 1980 Arrival Date: 08/16/2022 Time: 01:55 Bed 17 Private MD: ED Physician Kit Munoz HPI: 08/16 02:15 This 42 yrs old Male presents to ER via Ambulatory with complaints of Sore cp Throat. 02:15 The patient presents with sore throat. cp 02:15 Onset: The symptoms/episode began/occurred last week. Severity of symptoms: in the emergency department the symptoms are unchanged, despite home interventions. Associated signs and symptoms: Pertinent positives: slight cough, Pertinent negatives diarrhea, earache, fever, headache, shortness of breath, vomiting. Historical: - PMHx: 02:02 HEARING IMPAIRED; Kidney stones; kd3 - Immunization history:: Adult Immunizations up to date. - Social history:: Smoking status: unknown. ROS: 02:20 Constitutional: Negative for body aches, chills, fever, poor PO intake. cp 02:20 Eyes: Negative for injury, pain, redness, and discharge. cp 02:20 ENT: Positive for sore throat, Negative for drainage from ear(s), ear pain, rhinorrhea, difficulty swallowing, difficulty handling secretions. 02:20 Cardiovascular: Negative for chest pain, edema, palpitations. 02:20 Respiratory: Positive for cough, Negative for shortness of breath, wheezing. 02:20 Abdomen/GI: Negative for abdominal pain, vomiting, diarrhea, constipation. 02:20 : Negative for urinary symptoms. 02:20 Neuro: Negative for altered mental status, dizziness, headache, weakness. 02:20 All other systems are negative. Exam: 02:25 Constitutional: The patient appears in no acute distress, alert, awake, non-toxic, well cp developed, well nourished, uncomfortable. 02:25 Head/Face: Normocephalic, atraumatic. cp 02:25 Eyes: Periorbital structures: appear normal, Conjunctiva: normal, no exudate, no injection, Lids and lashes: appear normal, bilaterally. 02:25 ENT: External ear(s): are unremarkable, Ear canal(s): are normal, clear, TM's: dullness, bilaterally, Nose: is normal, Mouth: Lips: moist, Oral mucosa: moist, Posterior pharynx: Airway: no evidence of obstruction, patent, Tonsils: bilaterally enlarged, with erythema, Uvula: midline, swelling, that is mild, erythema, that is moderate, exudate, is not appreciated. 02:25 Neck: ROM/movement: Meningeal signs: are not present, nuchal rigidity, is not appreciated. 02:25 Chest/axilla: Inspection: normal. 02:25 Cardiovascular: Rate: normal, Rhythm: regular. 02:25 Respiratory: the patient does not display signs of respiratory distress, Respirations: normal, no use of accessory muscles, no retractions, labored breathing, is not present, Breath sounds: are clear throughout, no decreased breath sounds, no stridor, no wheezing. 02:25 Abdomen/GI: Exam negative for discomfort, distension, guarding, Inspection: abdomen appears normal. 02:25 Skin: no rash present. Vital Signs: 01:59 BP 142 / 88; Pulse 77; Resp 19; Temp 98.2(O); Pulse Ox 97% on R/A; kd3 02:16 Weight 87.09 kg; kd3 04:02 BP 136 / 81; Pulse 74; Resp 18 S; Pulse Ox 98% on R/A; lg3 MDM: 02:21 Patient medically screened. cp 03:20 Data reviewed: vital signs, nurses notes, lab test result(s). cp 03:20 Differential diagnosis: apthous stomatitis, group A strep tonsillitis, laryngitis, cp daniel's angina, mononucleosis, pharyngitis, tonsillitis, uvulitis. Consideration of Admission/Observation Escalation of care including admission/observation considered. Test considered but Not performed: Labs: cbc, bmp. CT: soft tissue neck. Counseling: I had a detailed discussion with the patient and/or guardian regarding: the historical points, exam findings, and any diagnostic results supporting the discharge/admit diagnosis, lab results, to return to the emergency department if symptoms worsen or persist or if there are any questions or concerns that arise at home. Response to treatment: the patient's symptoms have mildly improved after treatment, and as a result, I will discharge patient. 08/16 02:09 Order name: Strep cp 08/16 02:09 Order name: COVID-19/FLU A+B cp 08/16 02:52 Order name: Throat Culture EDMS Administered Medications: 02:16 Drug: Viscous Lidocaine Liquid (4 %) 5 ml Route: Mucous Membrane; kd3 04:01 Follow up: Response: No adverse reaction lg3 02:22 Drug: Zofran (Ondansetron) 4 mg Route: PO; kd3 04:01 Follow up: Response: No adverse reaction lg3 04:01 Drug: Augmentin (Amoxicillin-Clavulanate) 875 mg Route: PO; lg3 04:02 Follow up: Response: No adverse reaction lg3 04:01 Drug: Decadron (dexamethasone) 10 mg Route: PO; lg3 04:02 Follow up: Response: No adverse reaction lg3 Disposition Summary: 08/16/22 03:21 Discharge Ordered Location: Home cp Problem: new cp Symptoms: have improved cp Condition: Stable cp Diagnosis - Acute tonsillitis, unspecified cp Followup: cp - With: Bridgette Padgett MD - When: 2 - 3 days - Reason: Recheck today's complaints Discharge Instructions: - Discharge Summary Sheet cp - Tonsillitis cp Forms: - Medication Reconciliation Form cp - Thank You Letter cp - Antibiotic Education cp - Prescription Opioid Use cp Prescriptions: - Augmentin 875-125 mg Oral Tablet - take 1 tablet by ORAL route every 12 hours for 10 days; 20 tablet; Refills: 0, cp Product Selection Permitted - Lidocaine Viscous - take 5 milliliter by ORAL route every 4-6 hours; 1 bottle; Refills: 0, Product cp Selection Permitted Signatures: Dispatcher [employer] EDWI Pierre Schwartz PA PA cp Sabrina Rondon RN RN lg3 Chaparrita Fields RN RN kd3 Corrections: (The following items were deleted from the chart) 08/17 02:20 08/16 02:15 The patient presents with sore throat, dysphagia, of both solids and cp liquids, cp
[2022-08-16] MEDS ORDERED: dexAMETHasone 10 MG/ML VIAL ONE (03:40)
[2022-08-16] MEDS ORDERED: AMOX/K CLAV 875 MG TAB ONE (03:41)
[2022-08-16 04:09] VITALS: TEMP 98.2
[2022-08-16 04:10] VITALS: BP 136/81; O2SAT 98
== END 2022-08-16 04:03 | disposition home or self-care (01) ==
LOC: ER 01:52
DX: J03.90 Acute tonsillitis, unspecified (principal); R05.9 Cough, unspecified; Z20.822 Contact with and (suspected) exposure to COVID-19
CPT/HCPCS: 87070; 87081; 0240U; 99283; Q0162; J1100

== ENCOUNTER 2022-12-19 18:25 | Emergency (ER) | payer OTHER ==
--- OUTSIDE RECORDS SUMMARY | 2022-12-19 18:29 | XMS REPORT | Continuity of Care Document ---
:1980 Author Organization [facility] t Address [address] [place] [address] [place] [id number] Care Team Providers Name Role Phone Kurt Enrique Thelma Attending Clinician Unavailable Problems Condition Condition Condition Status Onset Resolution Last Treating Co mments Source Name Details Category Date Date Treatment Clinician Date [id number] Peptic Problem Active Common ulcer, [facility] site [facility] or chronic, without hemorrhage or perforatio n [id number] 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 [id number] Deaf Problem Active Common mutism, [facility] acquired [facility] [id number] Fatty Problem Active Common liver [facility] Allergies, Adverse Reactions, Alerts This patient has no known allergies or adverse reactions. Social History Social Habit Start Date Stop Date Quantity Comments Source History of Tobacco Use Co mmon [facility] Sex Assigned At Com mon [facility] Smoking Status Start Date Stop Date Source Former Smoker 2021-12-28 00:00:00 2021-12-28 00:00:00 Common S pirit [facility] Medications Ordered Filled Start Stop Current [...] [facility] [address] to the [facility], wast Center off after 8-14 hours. May repeat in 10-14 days Triamcinolo Triamcinolo 2019-0 Yes Enrique 1 Common ne ne - [facility] applicatio Spirit Acetonide Acetonide 00:00: n - C HI 00 [facility] Kenalog Kenalog 2020-0 No 40mg Common (Triamcinol (Triamcinol 5-13 S pirit one) one) 00:00: - [facility] 00 [facility] Kenalog Kenalog 2020-0 No 40mg Common (Triamcinol (Triamcinol 5-13 S pirit one) one) 00:00: - [facility] 00 [facility] Kenalog Kenalog 2020-0 No 40mg Common (Triamcinol (Triamcinol 5-13 S pirit one) one) 00:00: - [facility] 00 [facility] Kenalog Kenalog 2020-0 No 40mg Common (Triamcinol (Triamcinol 5-13 S pirit one) one) 00:00: - [facility] 00 [facility] Omeprazole Omeprazole Yes Enrique 1 capsule Common 03-21 [facility] Spirit 00:00: - [facility] 00 [facility] Omeprazole Omeprazole No 1{capsu QD [...] SMALL Spirit STRIP ON - [facility] LOWER [facility] 4 HOURS Naphcon-A Naphcon-A No QID Naphcon-A [...] Fluzone 2019-09-16 Completed Common [facility] 13:46:00 - [facility] Fluzone Fluzone 2019-09-16 Completed [facility] 13:46:00 - [facility] Fluzone Fluzone 2019-09-16 Completed [facility] 13:46:00 - [facility] Fluzone Fluzone 2019-09-16 Completed [facility] 13:46:00 - [facility] Fluzone Fluzone 2019-09-16 Completed [facility] 00:00:00 - [facility] Vital Signs Vital Name Observation Time Observation Value Comments Source height 2021-12-28 08:00:00 69 [in_i] [facility] weight 2021-12-28 08:00:00 183.7 [lb_av] [facility] temperature 2021-12-28 08:00:00 97.9 [degF] [facility] bmi 2021-12-28 08:00:00 27.12 kg/m2 [facility] oximetry 2021-12-28 08:00:00 99 % [facility] respiratory rate 2021-12-28 08:00:00 18 /min Comm on [facility] blood pressure 2021-12-28 08:00:00 115 [facility] systolic [facility] blood pressure 2021-12-28 08:00:00 68 mm[Hg[facility] diastolic [facility] oximetry 2021-12-28 08:00:00 99 % [facility] respiratory rate 2021-12-28 08:00:00 18 /min Comm on [facility] blood pressure 2021-12-28 08:00:00 115 mm[Hg] [facility] systolic [facility] blood pressure 2021-12-28 08:00:00 68 mm[Hg] [facility] diastolic [facility] height 2021-12-28 08:00:00 69 [in_i] [facility] weight 2021-12-28 08:00:00 183.7 [lb_av] [facility] temperature 2021-12-28 08:00:00 97.9 [degF] [facility] bmi 2021-12-28 08:00:00 27.12 kg/m2 [facility] Procedures This patient has no known procedures. Encounters Start End Encounter Admission Attending Care Care Encounter Source Date/Time Date/Time Type Type Clinicians Facility Department ID 2021-12-28 Outpatient Hicks, STLMLC STLMLC [id number] Common 07:37:00 Enrique [facility] 2021-12-27 Outpatient Hicks, STLMLC STLMLC [id number] Common 09:47:01 Enrique [facility] 2021-07-26 Outpatient Hicks, STLMLC STLMLC [id number] Common 13:04:39 Enrique [id number] [facility] 2021-07-26 Outpatient Hicks, STLMLC STLMLC [id number] Common 12:58:58 Enrique 81615 [facility] 2021-07-26 Outpatient Hicks, STLMLC STLMLC [id number] Common 11:48:10 Enrique [id number] [facility] 2021-07-26 Outpatient Hicks, STLMLC STLMLC [id number] Common 11:19:50 Enrique 17227 [facility] 2021-07-26 Outpatient Hicks, STLMLC STLMLC [id number] Common 11:19:37 Enrique 36002 [facility] 2021-07-26 Outpatient Hicks, STLMLC STLMLC [id number] Common 11:19:29 Enrique 11009 [facility] 2021-07-26 Outpatient Hicks, STLMLC STLMLC [id number] Common 11:12:34 Enrique 23748 [facility] 2022-12-03 2022-12-03 Outpatient SFA SFA [id number] Eric 13:21:04 13:21:04 [id number] [place] 2021-12-28 2021-12-28 (TEL) STLMLC STLMLC [id number] Co mmon 00:00:00 00:00:00 [facility] 2021-12-28 2021-12-28 SUB ANNUAL STLMLC STLMLC [id number] Common 00:00:00 00:00:00 MCR [facility] VISIT [facility] 2021-12-28 2021-12-28 OFFICE STLMLC STLMLC [id number] Co mmon 00:00:00 00:00:00 VISIT EST Spir it PT LEVEL 3 [facility] 2021-12-13 2021-12-13 (TEL) STLMLC STLMLC [id number] Co mmon 00:00:00 00:00:00 [facility] 2020-11-15 2020-11-15 Outpatient STLMLC STLMLC [id number] Common 00:00:00 00:00:00 [facility] 2020-03-22 2020-03-22 Outpatient STLMLC STLMLC [id number] Common 00:00:00 00:00:00 [facility] 2019-12-01 2019-12-01 [facility] [id number] Common 16:30:00 16:30:[address] [place] [address] [facility] 2019-11-11 2019-11-11 [facility] [id number] Common 14:30:00 14:30:[address] [place] [address] [facility] 2019-11-10 2019-11-10 [facility] [id number] Common 14:07:00 14:07:[address] [place] [address] [facility] 2019-10-28 2019-10-28 [facility] [id number] Common 14:30:00 14:30:00 [address] [place] [address] [facility] 2019-10-28 2019-10-28 [facility] [id number] Common 14:30:00 14:30:00 [place] [address] [facility] 2019-09-16 2019-09-16 [facility] [id number] Common 13:30:00 13:30:00 [address] [place] [address] [facility] 2019-08-25 2019-08-25 [facility] [id number] Common 15:15:00 15:15:[address] [place] [address] [facility] 2018-03-25 2018-03-25 [facility] [id number] Common 10:30:00 10:30:00 t Specialty/U Sp [place] Specialty rology - [facility] 2018-03-21 2018-03-21 [facility] [id number] Common 11:16:00 11:16:00 t Specialty/U Sp [place] Specialty rology - [facility] /[facility]rology [facility] 2018-03-20 2018-03-20 [facility] [id number] Common 11:23:00 11:23:00 t Specialty/U Sp [place] Specialty rology - [facility] 2018-03-11 2018-03-11 [facility] [id number] Common 09:45:00 09:45:00 t Specialty/U Sp [place] Specialty rology - [facility] /[facility]rology Clinic [facility] 2018-02-28 2018-02-28 [facility] [id number] Common 09:30:00 09:30:[address] [facility] 2017-12-12 2017-12-12 [facility] [id number] Common 11:00:00 11:00:00 [place] [address] [facility] 2017-10-31 2017-10-31 [facility] [id number] Common 13:30:00 13:30:[address] [facility] Results This patient has no known results.
[2022-12-19] MEDS ORDERED: KETOROLAC 30 MG/ML INJ ONE (19:47)
--- NOTE | 2022-12-19 19:52 | RAD REPORT ---
EXAM DESCRIPTION: RAD - Shoulder Left 2 View - 12/19/2022 7:36 pm CLINICAL HISTORY: shoulder pain COMPARISON: No Comparisons> TECHNIQUE: Internal and external rotation views of the left shoulder were obtained. FINDINGS: There is no fracture or dislocation. AC joint is normal in appearance. No acute or suspici ous findings. IMPRESSION: Negative two-view left shoulder examination.
[2022-12-19] MEDS ORDERED: DIAZEPAM 5 MG TABLET ONE (20:02)
--- NOTE | 2022-12-19 21:23 | ER ---
Nurse's Notes [facility] Name: Wanda Wise Age: 42 yrs Sex: Male : 1980 Arrival Date: 12/19/2022 Time: 18:25 Bed 9 Private MD: Diagnosis: Pain in left shoulder Presentation: 12/19 19:18 Chief complaint: Patient states: The muscle on my left arm is very tight and painful. I kd3 feel like it hurts to lift my arm up above my head. It started to hut last week but it keeps getting worse. I think i have a pinched nerve or something. I did not hurt myself. I think i may have slept wrong on it. Coronavirus screen: Vaccine status: Patient reports receiving the 2nd dose of the covid vaccine. Ebola Screen: No symptoms or risks identified at this time. Initial Sepsis Screen: Does the patient meet any 2 criteria? No. Patient's initial sepsis screen is negative. Does the patient have a suspected source of infection? No. Patient's initial sepsis screen is negative. Risk Assessment: Do you want to hurt yourself or someone else? Patient reports no desire to harm self or others. Onset of symptoms. 19:18 Method Of Arrival: Ambulatory kd3 19:18 Acuity: AALIYAH 4 kd3 Triage Assessment: 19:22 General: Appears in no apparent distress. Behavior is calm, cooperative. Pain: kd3 Complains of pain in left arm. Historical: - Allergies: 19:22 No Known Allergies; kd3 - PMHx: 19:22 HEARING IMPAIRED; Kidney stones; kd3 - Immunization history:: Adult Immunizations up to date. - Social history:: Smoking status: Patient denies any tobacco usage or history of. Screenin:47 [facility] ED Fall Risk Assessment (Adult) History of falling in the last 3 months, lg3 including since admission No falls in past 3 months (0 pts). Abuse screen: Denies threats or abuse. Denies injuries from another. Nutritional screening: No deficits noted. Tuberculosis screening: No symptoms or risk factors identified. Assessment: 19:45 General: Appears in no apparent distress. uncomfortable, Behavior is calm, cooperative. lg3 Pain: Complains of pain in anterior aspect of left shoulder and posterior aspect of left shoulder Pain radiates to left arm. Neuro: No deficits noted. Calderon Agitation-Sedation Scale (RASS): 0 - Alert and Calm Level of Consciousness is awake, alert, obeys commands, Oriented to person, place, time, situation. Cardiovascular: No deficits noted. Denies chest pain, shortness of breath, Capillary refill < 3 seconds Clubbing of nail beds is absent JVD is absent Patient's skin is warm and dry. Respiratory: No deficits noted. Airway is patent Respiratory effort is even, unlabored, Respiratory pattern is regular, symmetrical. GI: No deficits noted. No signs and/or symptoms were reported involving the gastrointestinal system. Abdomen is round non-distended. : No deficits noted. No signs and/or symptoms were reported regarding the genitourinary system. EENT: No deficits noted. No signs and/or symptoms were reported regarding the EENT system. Derm: No deficits noted. No signs and/or symptoms reported regarding the dermatologic system. Skin is intact, is healthy with good turgor, Skin is dry, Skin is normal, Skin temperature is warm. Musculoskeletal: Reports pain in left shoulder. 19:45 Musculoskeletal: Circulation, motion, and sensation intact. Range of motion: intact in lg3 all extremities. 20:55 Reassessment: Patient appears in no apparent distress at this time. No changes from lg3 previously documented assessment. Patient and/or family updated on plan of care and expected duration. Pain level reassessed. Patient is alert, oriented x 3, equal unlabored respirations, skin warm/dry/pink. Patient states feeling better. 21:32 Reassessment: Patient appears in no apparent distress at this time. No changes from lg3 previously documented assessment. Patient and/or family updated on plan of care and expected duration. Pain level reassessed. Patient is alert, oriented x 3, equal unlabored respirations, skin warm/dry/pink. Patient states feeling better. Patient states symptoms have improved. Vital Signs: 19:18 Weight 97.52 kg; Height 5 ft. 9 in. ; kd3 19:26 BP 127 / 76; Pulse 63; Resp 16; Temp 98.2(O); Pulse Ox 100% on R/A; kd3 21:34 BP 130 / 77; Pulse 61; Resp 16 S; Pulse Ox 100% on R/A; lg3 19:18 Body Mass Index 31.75 (97.52 kg, 175.26 cm) kd3 ED Course: 18:30 Patient arrived in ED. kj1 18:39 Miguel Mosquera PA is PHCP. [facility] 18:39 Jet Campbell MD is Attending Physician. jmm 19:22 Triage completed. kd3 19:22 Arm band placed on right wrist. kd3 19:38 Shoulder Left (2 View) XRAY In Process Unspecified. EDMS 19:38 Sabrina Rondon, RN is Primary Nurse. lg3 19:47 Patient has correct armband on for positive identification. Bed in low position. Call lg3 light in reach. Side rails up X 1. Door closed. Noise minimized. Warm blanket given. 21:21 Sudhir Rodgers MD is Referral Physician. [facility] 21:33 No provider procedures requiring assistance completed. Patient did not have IV access lg3 during this emergency room visit. Administered Medications: 19:45 Drug: Ketorolac IM 30 mg Route: IM; Site: right deltoid; lg3 20:38 Follow up: Response: No adverse reaction; Pain is decreased lg3 19:54 Drug: Diazepam PO 5 mg Route: PO; lg3 20:38 Follow up: Response: No adverse reaction; Marked relief of symptoms lg3 Medication: 21:33 VIS not applicable for this client. lg3 Outcome: 21:22 Discharge ordered by . [facility] 21:33 Discharged to home ambulatory. lg3 21:33 Condition: stable 21:33 Discharge instructions given to patient, Instructed on discharge instructions, follow up and referral plans. medication usage, Demonstrated understanding of instructions, follow-up care, medications, Prescriptions given X 2. 21:35 Patient left the ED. lg3 Signatures: Dispatcher [employer] EDMS Miguel Mosquera PA PA Marsha Smith kj1 Sabrina Rondon, RN RN lg3 Chaparrita Fields, RN RN kd3
--- NOTE | 2022-12-19 21:23 | EDPHYS ---
Physician Documentation [facility] Name: Wanda Wise Age: 42 yrs Sex: Male : 1980 Arrival Date: 12/19/2022 Time: 18:25 Bed 9 Private MD: ED Physician Jet Campbell HPI: 12/19 19:25 This 42 yrs old Male presents to ER via Ambulatory with complaints of Shoulder jmm Pain. 19:25 The patient or guardian complains of pain. jmm 19:25 Onset: The symptoms/episode began/occurred gradually, 1 week(s) ago. Modifying factors: jmm the symptoms are alleviated by nothing. The symptoms are aggravated by movement. This is a 42/m with no chronic medical conditions that presents to the ED with complaints of left shoulder pain. Patient states pain began after awaking about a week ago. Denies injury. Denies neck pain. . Historical: - Allergies: 19:22 No Known Allergies; kd3 - PMHx: 19:22 HEARING IMPAIRED; Kidney stones; kd3 - Immunization history:: Adult Immunizations up to date. - Social history:: Smoking status: Patient denies any tobacco usage or history of. ROS: 19:25 Constitutional: Negative for fever, chills, and weight loss, Cardiovascular: Negative jmm for chest pain, palpitations, and edema, Respiratory: Negative for shortness of breath, cough, wheezing, and pleuritic chest pain. 19:25 MS/extremity: Positive for pain. 19:25 All other systems are negative. Exam: 19:25 Constitutional: This is a well developed, well nourished patient who is awake, alert, jmm and in no acute distress. Head/Face: atraumatic. Eyes: EOMI, no conjunctival erythema appreciated ENT: Moist Mucus Membranes Neck: Trachea midline, Supple Chest/axilla: Normal chest wall appearance and motion. Cardiovascular: Regular rate and rhythm. No edema appreciated Respiratory: Normal respirations, no respiratory distress appreciated Abdomen/GI: Non distended Back: Normal ROM Skin: General appearance color normal 19:25 Musculoskeletal/extremity: left anterior shoulder ttp, compartments are soft, full reed man strength, pain elicited on ab duction. . 19:25 Skin: Appearance: Color: normal in color. 19:25 Neuro: Orientation: is normal, Mentation: is normal, Memory: is normal. 19:25 Psych: Behavior/mood is pleasant, cooperative. Vital Signs: 19:18 Weight 97.52 kg; Height 5 ft. 9 in. ; kd3 19:26 BP 127 / 76; Pulse 63; Resp 16; Temp 98.2(O); Pulse Ox 100% on R/A; kd3 21:34 BP 130 / 77; Pulse 61; Resp 16 S; Pulse Ox 100% on R/A; lg3 19:18 Body Mass Index 31.75 (97.52 kg, 175.26 cm) kd3 MDM: 19:25 Patient medically screened. [facility] 19:25 Differential diagnosis: bursitis, strain, sprain. [facility] 20:34 Data reviewed: vital signs, nurses notes, radiologic studies, plain films. [facility] 20:34 Counseling: I had a detailed discussion with the patient and/or guardian regarding: the [facility] historical points, exam findings, and any diagnostic results supporting the discharge/admit diagnosis, radiology results, the need for outpatient follow up, to return to the emergency department if symptoms worsen or persist or if there are any questions or concerns that arise at home. 12/19 19:26 Order name: Shoulder Left (2 View) XRAY; Complete Time: 19:56 [facility] 12/19 20:33 Order name: Sling; Complete Time: 20:55 [facility] Administered Medications: 19:45 Drug: Ketorolac IM 30 mg Route: IM; Site: right deltoid; lg3 20:38 Follow up: Response: No adverse reaction; Pain is decreased lg3 19:54 Drug: Diazepam PO 5 mg Route: PO; lg3 20:38 Follow up: Response: No adverse reaction; Marked relief of symptoms lg3 Disposition: 12/20 10:00 Co-signature as Attending Physician, Jet Campbell MD I reviewed the patient's care rt provided by the Advanced Practice Provider and agree with the diagnosis and treatment plan. Disposition Summary: 12/19/22 21:22 Discharge Ordered Location: Home [facility] Condition: Stable [facility] Diagnosis - Pain in left shoulder [facility] Followup: [facility] - With: Sudhir Rodgers MD - When: 2 - 3 days - Reason: Recheck today's complaints, Continuance of care, Re-evaluation by your physician Discharge Instructions: - Discharge Summary Sheet [facility] - Shoulder Pain [facility] Forms: - Medication Reconciliation Form [facility] - Thank You Letter [facility] - Antibiotic Education [facility] - Prescription Opioid Use [facility] Prescriptions: - Zanaflex 4 mg Oral Tablet - take 1 tablet by ORAL route every 8 hours As needed; 20 tablet; Refills: 0, [facility] Product Selection Permitted - Diclofenac Sodium 75 mg Oral Tablet Sustained Release - take 1 tablet by ORAL route 2 times per day; 30 tablet; Refills: 0, Product [facility] Selection Permitted Signatures: Dispatcher [employer] EDMiguel Pro PA PA jmm Gibson, Lacie, RN RN lg3 Chaparrita Fields RN RN kd3 Jet Campbell MD MD rt
[2022-12-19 21:52] VITALS: TEMP 98.2; O2SAT 100
[2022-12-19 21:53] VITALS: BP 130/77
== END 2022-12-19 21:35 | disposition home or self-care (01) ==
LOC: ER 18:25
DX: M25.512 Pain in left shoulder (principal)

== ENCOUNTER 2024-05-07 18:34 | Emergency (ER) | payer OTHER ==
--- OUTSIDE RECORDS SUMMARY | 2024-05-07 18:37 | XMS REPORT | Continuity of Care Document ---
Author Name Unknown Address [address] [place] [address] [facility] thconnect Address [address] [facility] [place] [address] Care Team Providers Care Metal Neutralizer Name Role Phone Kurt Enrique Thelma Attending Clinician Unavailable Problems Condition Name Condition Details Condition Category Status Onset Date Resolution Date Last Treatment Date Treating Clinician Comments Source [id number] Peptic ulcer, site unspecifie d, unspecifie d as acute or chronic, without hemorrhage or perforatio n Problem Active [facility] [id number] History of arthroplas ty of left knee Problem Active [facility] [id number] Deaf mutism, acquired Problem Active [facility] [id number] Fatty liver Problem Active [facility] [id number] Acute pain of left shoulder Problem [facility] [id number] Mixed hyperlipid emia Problem [facility] Social History Social Habit Start Date Stop Date Quantity Comments Source History of Tobacco Use [facility] Sex Assigned At [facility] Smoking Status Start Date Stop Date Source Former Smoker 2023-03-27 00:00:00 2023-03-27 00:00:00 [facility] Medications Ordered Medication Name Filled Medication Name Start Date Stop Date Current Medication? Ordering Clinician Indication Dosage Frequency Signature (SIG) Comments Components Source Lidocaine Lidocaine 03-14 00:00: 00 No 5mL [facility] Kenalog (Triamcinol one) Kenalog (Triamcinol one) 03-14 00:00: 00 No 2mL [facility] Lidocaine Lidocaine 03-14 00:00: 00 No 5mL [facility] Kenalog (Triamcinol one) Kenalog (Triamcinol one) 03-14 00:00: 00 No 2mL [facility] Lidocaine Lidocaine 03-14 00:00: 00 No 5mL [facility] Kenalog (Triamcinol one) Kenalog (Triamcinol one) 03-14 00:00: 00 No 2mL [facility] Lidocaine Lidocaine 03-14 00:00: 00 No 5mL [facility] Kenalog (Triamcinol one) Kenalog (Triamcinol one) 14 00:00: 00 No 2mL [facility] Lidocaine Lidocaine 03-14 00:00: 00 No 5mL [facility] Kenalog (Triamcinol one) Kenalog (Triamcinol one) 14 00:00: 00 No 2mL [facility] Lidocaine Lidocaine 14 00:00: 00 No 5mL [facility] Kenalog (Triamcinol one) Kenalog (Triamcinol one) 14 00:00: 00 No 2mL [facility] Naproxen 500 MG Naproxen 500 MG 6-30 00:00: 00 No Naproxen 500 MG Naproxen 500 MG Naproxen 500 MG 0 630 00:00: 00 No Naproxen 500 MG Permethrin Permethrin 0 6-02 00:00: 00 Yes Enrique Hicks 1 applicatio n from neck down to the soles of feet, wast off after 8-14 hours. May repeat in 10-14 days [facility] Triamcinolo ne Acetonide Triamcinolo ne Acetonide 0 -13 00:00: 00 Yes Enrique Hicks 1 applicatio n [facility] Kenalog (Triamcinol one) Kenalog (Triamcinol one) 0 -13 00:00: 00 No 40mg [facility] Kenalog (Triamcinol one) Kenalog (Triamcinol one) 0 -13 00:00: 00 No 40mg [facility] Kenalog (Triamcinol one) Kenalog (Triamcinol one) 0 -13 00:00: 00 No 40mg [facility] Kenalog (Triamcinol one) Kenalog (Triamcinol one) 0 -13 00:00: 00 No 40mg [facility] Kenalog (Triamcinol one) Kenalog (Triamcinol one) 0 -13 00:00: 00 No 40mg [facility] Kenalog (Triamcinol one) Kenalog (Triamcinol one) 0 -13 00:00: 00 No 40mg [facility] Kenalog (Triamcinol one) Kenalog (Triamcinol one) 0 5-13 00:00: 00 No 40mg [facility] Kenalog (Triamcinol one) Kenalog (Triamcinol one) 0 5-13 00:00: 00 No 40mg [facility] Omeprazole Omeprazole 2017-0 9-21 00:00: 00 Yes Enrique Hicks 1 capsule [facility] Omeprazole 40 MG Omeprazole 40 MG 03-21 00:00: 00 No 1{capsu le} QD Omeprazole 40 MG Omeprazole 40 MG Omeprazole 40 MG 03-21 00:00: 00 No 1{capsu le} QD Omeprazole 40 MG Bacitracin Bacitracin Yes Enrique Hicks APPLY SMALL STRIP ON LOWER EYELID OF AFFECTED EYE EVERY 4 HOURS [facility] No Known Medications No Known Medications No [facility] No Known Medications No Known Medications No [facility] No Known Medications No Known Medications No [facility] No Known Medications No Known Medications No [facility] Naphcon-A 0.025-0.3 % Naphcon-A 0.025-0.3 % No QID Naphcon-A 0.025-0.3 % Bacitracin 500 UNIT/GM Bacitracin 500 UNIT/GM No Bacitracin 500 UNIT/GM Permethrin 5 % Permethrin 5 % No Permethrin 5 % Naphcon-A 0.025-0.3 % Naphcon-A 0.025-0.3 % No QID Naphcon-A 0.025-0.3 % Bacitracin 500 UNIT/GM Bacitracin 500 UNIT/GM No Bacitracin 500 UNIT/GM Permethrin 5 % Permethrin 5 % No Permethrin 5 % Immunizations Ordered Immunization Name Filled Immunization Name Date Status Comments Source Fluzone Fluzone 2019-09-16 13:46:00 Completed [facility] Fluzone Fluzone 2019-09-16 13:46:00 Completed [facility] Fluzone Fluzone 2019-09-16 00:00:00 Completed [facility] Fluarix (IIV4) - SDS - 0.5mL Fluarix (IIV4) - SDS - 0.5mL Unknown Completed [facility] Fluzone Fluzone Unknown Completed [facility] Fluarix (IIV4) - SDS - 0.5mL Fluarix (IIV4) - SDS - 0.5mL Unknown Completed [facility] Fluzone Fluzone Unknown Completed [facility] Fluarix (IIV4) - SDS - 0.5mL Fluarix (IIV4) - SDS - 0.5mL Unknown Completed [facility] Fluzone Fluzone Unknown Completed [facility] Fluarix (IIV4) - SDS - 0.5mL Fluarix (IIV4) - SDS - 0.5mL Unknown Completed [facility] Fluzone Fluzone Unknown Completed [facility] Fluarix (IIV4) - SDS - 0.5mL Fluarix (IIV4) - SDS - 0.5mL Unknown Completed [facility] Fluzone Fluzone Unknown Completed [facility] Fluarix Fluarix Unknown Completed [facility] Fluzone Fluzone Unknown Completed [facility] Vital Signs Vital Name Observation Time Observation Value Comments S ource height 2023-04-08 08:40:00 69 [in_i] Commo n [facility] weight 2023-04-08 08:40:00 177.0 [lb_av] Co mmon [facility] temperature 2023-04-08 08:40:00 97.5 [degF] Com mon [facility] bmi 2023-04-08 08:40:00 26.14 kg/m2 Comm on [facility] oximetry 2023-04-08 08:40:00 98 % Commo n [facility] respiratory rate 2023-04-08 08:40:00 18 /min [facility] blood pressure systolic 2023-04-08 08:40:00 117 mm[Hg] [facility] blood pressure diastolic 2023-04-08 08:40:00 67 mm[Hg] [facility] height 2023-03-14 08:30:00 69 [in_i] Commo n [facility] weight 2023-03-14 08:30:00 178.0 [lb_av] Co mmon [facility] temperature 2023-03-14 08:30:00 98.0 [degF] Com mon [facility] bmi 2023-03-14 08:30:00 26.28 kg/m2 Comm on [facility] oximetry 2023-03-14 08:30:00 97 % Commo n [facility] respiratory rate 2023-03-14 08:30:00 17 /min [facility] blood pressure systolic 2023-03-14 08:30:00 130 mm[Hg] [facility] blood pressure diastolic 2023-03-14 08:30:00 64 mm[Hg] [facility] height 2023-03-14 08:30:00 69 [in_i] Commo n [facility] weight 2023-03-14 08:30:00 178.0 [lb_av] Co mmon [facility] temperature 2023-03-14 08:30:00 98.0 [degF] Com mon [facility] bmi 2023-03-14 08:30:00 26.28 kg/m2 Comm on [facility] oximetry 2023-03-14 08:30:00 97 % Commo n [facility] respiratory rate 2023-03-14 08:30:00 17 /min [facility] blood pressure systolic 2023-03-14 08:30:00 130 mm[Hg] [facility] blood pressure diastolic 2023-03-14 08:30:00 64 mm[Hg] [facility] height 2023-03-14 10:00:00 69 [in_i] Commo n [facility] weight 2023-03-14 10:00:00 178 [lb_av] Comm on [facility] temperature 2023-03-14 10:00:00 98.0 [degF] Com [facility] bmi 2023-03-14 10:00:00 26.28 kg/m2 Comm on [facility] blood pressure systolic 2023-03-14 10:00:00 130 mm[Hg] [facility] blood pressure diastolic 2023-03-14 10:00:00 80 mm[Hg] [facility] height 2021-12-28 08:00:00 69 [in_i] Commo n [facility] weight 2021-12-28 08:00:00 183.7 [lb_av] Co mmon [facility] temperature 2021-12-28 08:00:00 97.9 [degF] Com [facility] bmi 2021-12-28 08:00:00 27.12 kg/m2 Comm on [facility] oximetry 2021-12-28 08:00:00 99 % Commo n [facility] respiratory rate 2021-12-28 08:00:00 18 /min [facility] blood pressure systolic 2021-12-28 08:00:00 115 mm[Hg] [facility] blood pressure diastolic 2021-12-28 08:00:00 68 mm[Hg] [facility] height 2021-12-28 08:00:00 69 [in_i] Commo n [facility] weight 2021-12-28 08:00:00 183.7 [lb_av] Co mmon [facility] temperature 2021-12-28 08:00:00 97.9 [degF] Com [facility] bmi 2021-12-28 08:00:00 27.12 kg/m2 Comm on [facility] oximetry 2021-12-28 08:00:00 99 % Commo n [facility] respiratory rate 2021-12-28 08:00:00 18 /min [facility] blood pressure systolic 2021-12-28 08:00:00 115 mm[Hg] [facility] blood pressure diastolic 2021-12-28 08:00:00 68 mm[Hg] [facility] Encounters Start Date/Time End Date/Time Encounter Type Admission Type Attending [facility] Facility Care Department Encounter ID Source 2024-03-06 11:59:00 Outpatient Hicks, Enrique STLMLC STLMLC [id number] [facility] 2023-03-14 12:49:00 Outpatient Hicks, Enrique STLMLC STLMLC [id number] [facility] 2023-03-13 11:05:00 Outpatient Hicks, Enrique STLMLC STLMLC [id number] [facility] 2023-03-12 09:53:00 Outpatient Hicks, Enrique STLMLC STLMLC [id number] [facility] 2023-03-05 15:01:00 Outpatient Hicks, Enrique STLMLC STLMLC [id number] [facility] 2023-02-19 08:49:00 Outpatient Hicks, Enrique STLMLC STLMLC [id number] [facility] 2023-02-18 07:49:00 Outpatient Hicks, Enrique STLMLC STLMLC [id number] [facility] 2023-02-11 10:47:00 Outpatient Hicks, Enrique STLMLC STLMLC [id number] [facility] 2022-12-20 13:43:00 Outpatient Hicks, Enrique STLMLC STLMLC [id number] [facility] 2021-12-28 07:37:00 Outpatient Hicks, Enrique STLMLC STLMLC [id number] [facility] 2021-12-27 09:47:01 Outpatient Hicks, Enrique STLMLC STLMLC [id number] [facility] 2021-07-26 13:04:39 Outpatient Hicks, Enrique STLMLC STLMLC [id number] [facility] 2021-07-26 12:58:58 Outpatient Hicks, Enrique STLMLC STLMLC [id number] [facility] 2021-07-26 11:48:10 Outpatient Hicks, Enrique STLMLC STLMLC [id number] [facility] 2021-07-26 11:19:50 Outpatient Hicks, Enrique STLMLC STLMLC [id number] [facility] 2021-07-26 11:19:37 Outpatient Hicks, Enrique STLC STLC [id number] [facility] 2021-07-26 11:19:29 Outpatient Hicks, Enrique STLC STLMLC [id number] [facility] 2021-07-26 11:12:34 Outpatient Hicks, Enrique STLC STLMLC [id number] [facility] 2023-04-08 00:00:00 2023-04-08 00:00:00 OFFICE VISIT ESTAB PT LEVEL 3 STLMLC STLMLC [id number] [facility] 2023-03-14 00:00:00 2023-03-14 00:00:00 OFFICE VISIT ESTAB PT LEVEL 3 STLMLC STLMLC [id number] [facility] 2023-03-14 00:00:00 2023-03-14 00:00:00 SUB ANNUAL [facility] VISIT STLMLC STLMLC [id number] [facility] 2023-03-14 00:00:00 2023-03-14 00:00:00 OFFICE VISIT NEW PT LEVEL 3 STLMLC STLMLC [id number] [facility] 2023-02-07 00:00:00 2023-02-07 00:00:00 (TEL) STLMLC STLMLC [id number] [facility] 2022-12-21 00:00:00 2022-12-21 00:00:00 (TEL) STLMLC STLMLC [id number] [facility] 2022-12-03 13:21:04 2022-12-03 13:21:04 Outpatient SFA SFA [id number] Eric Rodarte 2021-12-28 00:00:00 2021-12-28 00:00:00 (TEL) STLMLC STLMLC [id number] [facility] 2021-12-28 00:00:00 2021-12-28 00:00:00 SUB ANNUAL [facility] VISIT STLMLC STLMLC [id number] [facility] 2021-12-28 00:00:00 2021-12-28 00:00:00 OFFICE VISIT EST PT LEVEL 3 STLMLC STLMLC [id number] [facility] 2021-12-13 00:00:00 2021-12-13 00:00:00 (TEL) STLMLC STLMLC [id number] [facility] 2020-11-15 00:00:00 2020-11-15 00:00:00 Outpatient STLMLC STLMLC [id number] [facility] 2020-03-22 00:00:00 2020-03-22 00:00:00 Outpatient STLMLC STLMLC [id number] [facility] 2019-12-01 16:30:00 2019-12-01 16:30:[address] [facility] [id number] [facility] 2019-11-11 14:30:00 2019-11-11 14:30:00 [address] [facility] [id number] [facility] 2019-11-10 14:07:00 2019-11-10 14:07:00 [facility] [facility] [id number] [facility] 2019-10-28 14:30:00 2019-10-28 14:30:00 [address] [facility] [id number] [facility] 2019-10-28 14:30:00 2019-10-28 14:30:00 [address] [facility] [id number] [facility] 2019-09-16 13:30:00 2019-09-16 13:30:[address] [facility] [id number] [facility] 2019-08-25 15:15:00 2019-08-25 15:15:[address] [facility] [id number] [facility] 2018-03-25 10:30:00 2018-03-25 10:30:00 [facility] [id number] [facility] 2018-03-21 11:16:00 2018-03-21 11:16:00 [facility] [id number] [facility] 2018-03-20 11:23:00 2018-03-20 11:23:00 [facility] [id number] [facility] 2018-03-11 09:45:00 2018-03-11 09:45:00 [facility] [id number] [facility] 2018-02-28 09:30:00 2018-02-28 09:30:[address] [facility] [id number] [facility] 2017-12-12 11:00:00 2017-12-12 11:00:00 [facility] [id number] [facility] 2017-10-31 13:30:00 2017-10-31 13:30:00 [facility] [id number] [facility] Results Test Description Test Time Test Comments Results Result Co mments Source
[2024-05-07] MEDS ORDERED: KETOROLAC 30 MG/ML INJ ONE (19:40)
[2024-05-07] MEDS ORDERED: NA CHLORIDE 0.9% 1,000 ML ONE (19:41)
[2024-05-07] MEDS ORDERED: DIPHENHYDRAMINE 50 MG/ML VIAL ONE (19:41)
[2024-05-07] MEDS ORDERED: METOCLOPRAMIDE 10 MG/2mL INJ ONE (19:41)
[2024-05-07 19:52] LABS: Absolute Eosinophils 0.1 K/uL (0-0.5); Absolute Lymphocytes (CBC) 1.4 K/uL (0.7-4.9); Absolute Monocytes 0.3 K/uL (0.1-1.3); Absolute Neutrophil 3.4 K/uL (1.8-8.0); Basophils % 0.3 % (0-1.3); Hematocrit 44.7 % (39.6-49.0); MCH 30.7 pg (27.0-35.0); MCHC 33.5 g/dL (32.0-36.0); MCV 91.4 fL (80-100); MPV 8.7 fL (7.6-11.3); Monocytes % 6.2 % (3.3-12.3); Neutrophils % 65.5 % (41.7-73.7); Platelets 216 thou/uL (152-406)
[2024-05-07 19:53] LABS: PT Prothrombin Time 11.5 SECONDS (9.4-12.5); Protime INR 1.03
[2024-05-07 19:55] LABS: Sqamous Epithelial None Seen /HPF (None Seen); Urine Bacteria None Seen /HPF (<20); Urine Bilirubin NEGATIVE (Negative); Urine Blood Negative (Negative); Urine Clarity Clear (Clear); Urine Color Light-Yellow (Yellow); Urine Culture Reflex Order NOT NEEDED; Urine Glucose NEGATIVE (Negative); Urine Ketones NEGATIVE (Negative); Urine Microscopic Reflex YN ORDER UMIC; Urine Mucus Slight /HPF (None Seen); Urine Nitrite NEGATIVE (Negative); Urine Protein NEGATIVE (Negative); Urine RBC <5 /HPF (None Seen); Urine Urobilinogen Normal (Normal); Urine WBC <5 /HPF (<5); Urine pH 5.5 (5.0-7.0)
[2024-05-07 20:10] LABS: Albumin/Globulin Ratio 1.1 (1.1-1.8); Anion Gap 8.9 mEq/L (5.0-15.0); Bilirubin Direct 0.2 mg/dL (0-0.2); Bilirubin Indirect, Calculated 0.4 mg/dL (0.2-0.8); Bilirubin Total 0.6 mg/dL (0.2-1.0); Globulin 3.5 g/dL (2.3-3.5); Magnesium 2.2 mg/dL (1.6-2.4); Potassium 3.9 mEq/L (3.5-5.1); Protein, Total 7.5 g/dL (6.4-8.2); Troponin High Sensitivity 6.4 pg/mL (<58.9)
--- NOTE | 2024-05-07 21:34 | RAD REPORT ---
EXAM: CT Head Brain Wo Cont HISTORY: Headache;Visual disturbances COMPARISON: 11/16/2020 TECHNIQUE: Multiple contiguous axial images were obtained for a CT of the brain without contrast. Sag ittal and coronal reformats were performed. One or more of the following dose reduction techniques were used: Automated exposure control, adjus tment of the mA and kV according to patient size, and iterative reconstruction. Unless otherwise specified, incidental findings do not require dedicated imaging follow-up. FINDINGS: No evidence of hydrocephalus, intracranial hemorrhage, or extra-axial fluid collection. Cortical foci of calcification along the right parasagittal perirolandic cortex, left parasagittal fr ontal lobe, and more peripheral right anterior frontal lobe. 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 The brain is normal in morphology otherwise. The calvarium is intact. The visualized paranasal sinuses and mastoid air cells are essentially clear . IMPRESSION: No evidence of acute intracranial abnormality. Stable findings as above
--- NOTE | 2024-05-07 21:39 | RAD REPORT ---
EXAMINATION: ONE VIEW CHEST XR CLINICAL INDICATION: Male, 43 years old.,CHEST PAIN TECHNIQUE: Frontal chest projection is submitted. Examination is limited by patient positioning and t echnique. COMPARISON: 10/18/2022 FINDINGS: The lungs are well inflated and clear. No pneumothorax or sizable effusion. The heart is normal in s ize. Mediastinal contours are unremarkable. IMPRESSION: No acute intrathoracic abnormalities.
[2024-05-07 21:59] LABS: SARS-CoV-2 Antigen CONTROL BLUE LINE VIS/BG OK; SARS-CoV-2 Antigen Rapid Res Negative (Negative)
--- NOTE | 2024-05-07 22:45 | ER ---
Nurse's Notes [facility] Name: Wanda Wise Age: 43 yrs Sex: Male : 1980 Arrival Date: 05/07/2024 Time: 18:34 Bed 7 Private MD: Diagnosis: Migraine with aura Presentation: 05/07 18:48 Chief complaint: Patient states: For about a week, my mind is groggy, I feel nausea, jb4 I've been vomiting, my hand is shaking, my eyes will get blurry. I have thrown up twice today. I feel dizzy, I have a headache. I go to work, but I do not feel well. Coronavirus screen: Client denies travel out of the [place] in the last 14 days. Ebola Screen: Patient negative for fever greater than or equal to 101.5 degrees Fahrenheit, and additional compatible Ebola Virus Disease symptoms Patient denies exposure to infectious person. Patient denies travel to an Ebola-affected area in the 21 days before illness onset. No symptoms or risks identified at this time. Initial Sepsis Screen:. 18:48 Method Of Arrival: Ambulatory jb4 19:56 Initial Sepsis Screen: Does the patient meet any 2 criteria? No. Patient's initial iw sepsis screen is negative. Does the patient have a suspected source of infection? No. Patient's initial sepsis screen is negative. Risk Assessment: Do you want to hurt yourself or someone else? Patient reports no desire to harm self or others. Onset of symptoms was May 01, 2024. 19:56 Acuity: AALIYAH 3 iw Triage Assessment: 18:50 General: Appears. jb4 18:56 General: Appears in no apparent distress. Behavior is calm, cooperative. Pain: jb4 Complains of pain in head Pain currently is 10 out of 10 on a pain scale. EENT: No signs and/or symptoms were reported regarding the EENT system. Neuro: Level of Consciousness is awake, alert, obeys commands, Oriented to person, place, time, situation, Reports dizziness, headache. Cardiovascular: Patient's skin is warm and dry. Respiratory: Airway is patent Respiratory effort is even, unlabored, Respiratory pattern is regular, symmetrical. GI: Abdomen is flat, non-distended, Reports nausea, vomiting. : No signs and/or symptoms were reported regarding the genitourinary system. Derm: No signs and/or symptoms reported regarding the dermatologic system. Musculoskeletal: No signs and/or symptoms reported regarding the musculoskeletal system. Historical: - Allergies: 18:50 No Known Allergies; jb4 - PMHx: 18:50 HEARING IMPAIRED; jb4 19:56 Hypertensive disorder; iw - PSHx: 18:50 None; jb4 - Immunization history:: Client reports receiving the 2nd dose of the Covid vaccine. - Infectious Disease History:: Denies. - Social history:: Smoking status: Patient/guardian denies using tobacco, the patient reports quitting approximately 11 years ago, Patient uses alcohol, on the weekends. Screenin:54 [facility] ED Fall Risk Assessment (Adult) History of falling in the last 3 months, iw including since admission No falls in past 3 months (0 pts) Confusion or Disorientation No (0 pts) Intoxicated or Sedated No (0 pts) Impaired Gait No (0 pts) Mobility Assist Device Used No (0 pt) Altered Elimination No (0 pt) Score/Fall Risk Level 0 - 2 = Low Risk Oriented to surroundings, Maintained a safe environment, Hourly rounding (assess needs \T\ fall precautionary measures) done. Abuse screen: Denies threats or abuse. Denies injuries from another. Nutritional screening: No deficits noted. Tuberculosis screening: No symptoms or risk factors identified. Assessment: 18:56 Reassessment: used barrel cleaner. jb4 19:52 General: Appears in no apparent distress. Behavior is calm, cooperative, used ASL iw community support specialist [place] [id number]. Pain: Complains of pain in head Pain currently is 10 out of 10 on a pain scale. Neuro: Level of Consciousness is awake, alert, obeys commands, Oriented to person, place, time, situation. Cardiovascular: Capillary refill < 3 seconds Patient's skin is warm and dry. Rhythm is sinus bradycardia. Respiratory: Airway is patent Respiratory effort is even, unlabored, Respiratory pattern is regular, symmetrical. GI: Abdomen is flat, non-distended. GI: Reports nausea, vomiting. : No signs and/or symptoms were reported regarding the genitourinary system. EENT: No signs and/or symptoms were reported regarding the EENT system. Derm: Skin is intact, Skin is pink, warm \T\ dry. normal. Musculoskeletal: No signs and/or symptoms reported regarding the musculoskeletal system. 21:27 Reassessment: Patient appears in no apparent distress at this time. Patient and/or iw family updated on plan of care and expected duration. Pain level reassessed. Patient is alert, oriented x 3, equal unlabored respirations, skin warm/dry/pink. pain decreased from 10/10 to 7/10, patient resting comfortably at this time. 22:31 Reassessment: Patient appears in no apparent distress at this time. No changes from iw previously documented assessment. Patient and/or family updated on plan of care and expected duration. Pain level reassessed. Patient is alert, oriented x 3, equal unlabored respirations, skin warm/dry/pink. Vital Signs: 18:52 BP 127 / 79; Pulse 60; Resp 18; Temp 98.4(O); Pulse Ox 100% on R/A; MAP 94 mmHg; Height jb4 5 ft. 0 in. ; Pain 10/10; 19:55 BP 130 / 78; Pulse 58; Resp 18; Temp 97.8; Pulse Ox 100% on R/A; Weight 65.77 kg; iw Height 5 ft. 0 in. ; Pain 10/10; 20:00 BP 127 / 78; Pulse 57; Resp 16; Pulse Ox 100% on R/A; iw 20:30 BP 135 / 85; Pulse 58; Resp 15; Pulse Ox 100% ; iw 21:00 BP 117 / 73; Pulse 52; Resp 14; Pulse Ox 98% on R/A; iw 21:30 BP 105 / 73; Pulse 57; Resp 16; Pulse Ox 100% on R/A; iw 22:00 BP 110 / 77; Pulse 52; Resp 16; Pulse Ox 100% on R/A; iw 19:55 Body Mass Index 28.32 (65.77 kg, 152.4 cm) iw 18:52 Pain Scale: Adult jb4 19:55 Pain Scale: Adult iw ED Course: 18:36 Patient arrived in ED. mr 18:51 Arm band placed on left wrist. jb4 19:15 Hanh Galicia PA-C is PHCP. sb4 19:15 Kt Aguayo MD is Attending Physician. sb4 19:51 Mihaela Ashley, ECHO is Primary Nurse. iw 19:55 Patient has correct armband on for positive identification. Bed in low position. Call iw light in reach. Side rails up X 1. Provided Education on: plan of care, wait times for results, medications. 19:56 Triage completed. iw 19:56 No provider procedures requiring assistance completed. Inserted saline lock: 22 gauge iw in right antecubital area, using aseptic technique. Blood collected. Flushed with 10 mL NS. 19:58 XRAY Chest (1 view) In Process Unspecified. EDMS 21:08 Head Brain Wo Cont CT In Process Unspecified. EDMS 21:24 Flu Sent. vk 21:24 SARS RAPID Sent. vk 23:25 IV discontinued, intact, bleeding controlled, No redness/swelling at site. Pressure al5 dressing applied. Administered Medications: 19:52 Drug: diphenhydrAMINE IVP 25 mg IVP once Route: IVP; Site: right antecubital; iw 21:28 Follow up: Response: No adverse reaction; Pain is decreased iw 19:52 Drug: metoCLOPramide IVP 10 mg IVP once; over 1 to 2 minutes Route: IVP; Site: right iw antecubital; 21:28 Follow up: Response: No adverse reaction; Pain is decreased iw 19:52 Drug: Ketorolac IVP 15 mg IVP once Route: IVP; Site: right antecubital; iw 21:28 Follow up: Response: No adverse reaction; Pain is decreased iw 19:52 Drug: NS 0.9% IV 1000 ml IV at 1000 ml once; to be given as a bolus over 60 minutes iw Route: IV; Rate: 1000 ml; Site: right antecubital; 23:43 Follow up: Response: No adverse reaction; IV Status: Completed infusion; IV Intake: al5 1000ml 23:15 Drug: Acetaminophen PO 1000 mg PO once Route: PO; al5 23:15 Follow up: Response: No adverse reaction; Medication administered at discharge. al5 Medication: 19:56 VIS not applicable for this client. iw Intake: 23:43 IV: 1000ml; Total: 1000ml. al5 Outcome: 22:45 Discharge ordered by . sb4 23:42 Discharged to home ambulatory, al5 23:42 Condition: good 23:42 Discharge instructions given to patient, Instructed on discharge instructions, follow up and referral plans. medication usage, Demonstrated understanding of instructions, follow-up care, medications, Prescriptions given X 2, 23:43 Patient left the ED. al5 Signatures: Dispatcher [employer] EDMS Sofia Main, Reg Reg mr Mihaela Ashley, RN RN iw Juan Krishnan RN RN jb4 Hanh Galicia PA-C PA-C sb4 Kruse, Vivian vk Langhorst, Amanda, ECHO RN al5 Corrections: (The following items were deleted from the chart) 18:51 18:50 PMHx: Kidney stones; beth jb4 19:55 19:52 General: Appears in no apparent distress. Behavior is calm, cooperative, iw madeline
--- NOTE | 2024-05-07 22:45 | EDPHYS ---
Physician Documentation [facility] Name: Wanda Wise Age: 43 yrs Sex: Male : 1980 Arrival Date: 05/07/2024 Time: 18:34 Bed 7 Private MD: ED Physician Kt Aguayo HPI: 05/08 01:07 This 43 yrs old Male presents to ER via Ambulatory with complaints of sb4 Vomiting, Abdominal Pain, Headache, Vision Problem. 01:07 Patient reports headache, nausea, vomiting, blurry vision intermittently for the past sb4 week. Denies any prior migraine history or any pertinent medical history. States that he has had his vision checked within the past year. Denies any chest pain, shortness of breath, diarrhea. Historical: - Allergies: 05/07 18:50 No Known Allergies; jb4 - PMHx: 18:50 HEARING IMPAIRED; jb4 19:56 Hypertensive disorder; iw - PSHx: 18:50 None; jb4 - Immunization history:: Client reports receiving the 2nd dose of the Covid vaccine. - Infectious Disease History:: Denies. - Social history:: Smoking status: Patient/guardian denies using tobacco, the patient reports quitting approximately 11 years ago, Patient uses alcohol, on the weekends. ROS: 05/08 01:07 Constitutional: Negative for fever, chills, and weight loss, sb4 Abdomen/GI: Positive for nausea and vomiting, Neuro: Positive for headache, All other systems are negative, Exam: 01:07 Constitutional: This is a well developed, well nourished patient who is awake, alert, sb4 and in no acute distress. Head/Face: Normocephalic, atraumatic. Eyes: Extra-ocular motions intact. Periorbital areas with no swelling, redness, or edema. ENT: Mucous membranes moist. Skin: Warm, dry with normal turgor. Normal color with no rashes, no lesions, and no evidence of cellulitis. Neuro: Awake and alert, GCS 15, oriented to person, place, time, and situation. Motor strength 5/5 in all extremities. Sensory grossly intact. Vital Signs: 05/07 18:52 BP 127 / 79; Pulse 60; Resp 18; Temp 98.4(O); Pulse Ox 100% on R/A; MAP 94 mmHg; Height jb4 5 ft. 0 in. ; Pain 10/10; 19:55 BP 130 / 78; Pulse 58; Resp 18; Temp 97.8; Pulse Ox 100% on R/A; Weight 65.77 kg; iw Height 5 ft. 0 in. ; Pain 10/10; 20:00 BP 127 / 78; Pulse 57; Resp 16; Pulse Ox 100% on R/A; iw 20:30 BP 135 / 85; Pulse 58; Resp 15; Pulse Ox 100% ; iw 21:00 BP 117 / 73; Pulse 52; Resp 14; Pulse Ox 98% on R/A; iw 21:30 BP 105 / 73; Pulse 57; Resp 16; Pulse Ox 100% on R/A; iw 22:00 BP 110 / 77; Pulse 52; Resp 16; Pulse Ox 100% on R/A; iw 19:55 Body Mass Index 28.32 (65.77 kg, 152.4 cm) iw 18:52 Pain Scale: Adult jb4 19:55 Pain Scale: Adult iw MDM: 19:15 Medical Screening Exam initiated sb4 05/08 01:08 Data reviewed: vital signs, nurses notes, lab test result(s), EKG, radiologic studies, sb4 and as a result, I will discharge patient. Counseling: I had a detailed discussion with the patient and/or guardian regarding the historical points, exam findings, and any diagnostic results supporting the discharge/admit diagnosis, lab results, radiology results, the need for outpatient follow up, for definitive care, to return to the emergency department if symptoms worsen or persist or if there are any questions or concerns that arise at home. 05/07 19:16 Order name: Basic Metabolic Panel; Complete Time: 20:11 sb4 05/07 19:16 Order name: CBC with Diff; Complete Time: 20:02 sb4 05/07 19:16 Order name: LFT's; Complete Time: 20:11 sb4 05/07 19:16 Order name: Magnesium; Complete Time: 20:11 sb4 05/07 19:16 Order name: NT PRO-BNP; Complete Time: 20:11 sb4 05/07 19:16 Order name: PT-INR; Complete Time: 19:54 sb4 05/07 19:16 Order name: Troponin HS; Complete Time: 20:11 sb4 05/07 19:28 Order name: Urinalysis w/ reflexes; Complete Time: 19:55 ha1 05/07 21:00 Order name: SARS RAPID; Complete Time: 22:03 sb4 05/07 21:00 Order name: Flu; Complete Time: 22:03 sb4 05/07 19:16 Order name: XRAY Chest (1 view); Complete Time: 21:42 sb4 05/07 19:16 Order name: Head Brain Wo Cont CT; Complete Time: 21:34 sb4 05/07 19:16 Order name: Cardiac monitoring; Complete Time: 19:49 sb4 05/07 19:16 Order name: EKG - Nurse/Tech; Complete Time: 19:49 sb4 05/07 19:16 Order name: IV Saline Lock; Complete Time: 19:49 sb4 05/07 19:16 Order name: Labs collected and sent; Complete Time: 19:52 sb4 05/07 19:16 Order name: O2 Per Protocol; Complete Time: 19:49 sb4 05/07 19:16 Order name: O2 Sat Monitoring; Complete Time: 19:49 sb4 EC/07 19:54 Rate is 56 beats/min. Rhythm is regular, Sinus bradycardia. OR interval is normal at sb4 140 msec. QRS interval is normal at 84 msec. QT interval is normal. No Q waves. T waves are Normal. No ST changes noted. Clinical impression: Sinus bradycardia and No evidence of ischemia. Interpreted by me. Reviewed by me. Administered Medications: 19:52 Drug: diphenhydrAMINE IVP 25 mg IVP once Route: IVP; Site: right antecubital; iw 21:28 Follow up: Response: No adverse reaction; Pain is decreased iw 19:52 Drug: metoCLOPramide IVP 10 mg IVP once; over 1 to 2 minutes Route: IVP; Site: right iw antecubital; 21:28 Follow up: Response: No adverse reaction; Pain is decreased iw 19:52 Drug: Ketorolac IVP 15 mg IVP once Route: IVP; Site: right antecubital; iw 21:28 Follow up: Response: No adverse reaction; Pain is decreased iw 19:52 Drug: NS 0.9% IV 1000 ml IV at 1000 ml once; to be given as a bolus over 60 minutes iw Route: IV; Rate: 1000 ml; Site: right antecubital; 23:43 Follow up: Response: No adverse reaction; IV Status: Completed infusion; IV Intake: al5 1000ml 23:15 Drug: Acetaminophen PO 1000 mg PO once Route: PO; al5 23:15 Follow up: Response: No adverse reaction; Medication administered at discharge. al5 Disposition Summary: 05/07/24 22:45 Discharge Ordered Notes: Location: Home sb4 Problem: new sb4 Symptoms: have improved sb4 Condition: Stable sb4 Diagnosis - Migraine with aura sb4 Followup: sb4 - With: Emergency Department - When: As needed - Reason: If symptoms return, Worsening of condition Discharge Instructions: - Discharge Summary Sheet sb4 - Migraine Headache, [id number] sb4 Forms: - Patient Portal Instructions sb4 - Leadership Thank You Letter sb4 Prescriptions: - ketorolac 10 mg Oral tablet - take 1 tablet ORAL route every 4 to 6 hours for 3 days as needed for pain; do sb4 not exceed 4 doses per 24 hrs; 10 tablet; Refills: 0, Product Selection Permitted - ondansetron 8 mg Oral Tablet,disintegrating - take 1 tablet ORAL route every 6 hours As needed; 10 tablet; Refills: 0, sb4 Product Selection Permitted Addendum: 05/11/2024 08:18 Co-signature as Attending Physician, Kt Aguayo MD I reviewed the patient's care r n provided by the Advanced Practice Provider and agree with the diagnosis and treatment plan. Signatures: Dispatcher [employer] Mihaela Otto RN RN iw Nieto, Roman, MD MD rn Bryson, James, RN RN jb4 Brown, Sophia, PA-C PACésar reagan4 Raisa Dobson RN RN al5 Corrections: (The following items were deleted from the chart) 05/07 18:51 18:50 PMHx: Kidney stones; jb4 jb4 19:16 19:16 BASIC METABOLIC PANEL+C.LAB.BRZ ordered. EDMS EDMS 19:16 19:16 CBC+H.LAB.BRZ ordered. EDMS EDMS 19:16 19:16 HEPATIC FUNCTION+C.LAB.BRZ ordered. EDMS EDMS 19:16 19:16 MAGNESIUM+C.LAB.BRZ ordered. EDMS EDMS 19:16 19:16 PROBNP+C.LAB.BRZ ordered. EDMS EDMS 19:16 19:16 PROTIME (+INR)+COAG.LAB.BRZ ordered. EDMS EDMS 19:16 19:16 Troponin High Sensitivity+C.LAB.BRZ ordered. EDMS EDMS 19:16 19:16 Chest Single View+RAD.RAD.BRZ ordered. EDMS EDMS 19:17 19:17 Head Brain Wo Cont+CT.RAD.BRZ ordered. EDMS EDMS 21:00 21:00 SARS-COV-2 Antigen Rapid+I.LAB.BRZ ordered. EDMS EDMS 21:00 21:00 Influenza Screen (A \T\ B)+BA.LAB.BRZ ordered. EDMS EDMS
[2024-05-07] MEDS ORDERED: ACETAMINOPHEN 500 MG TAB ONE (23:04)
[2024-05-08 00:33] VITALS: TEMP 97.8
[2024-05-08 00:47] VITALS: O2SAT 100
[2024-05-08 00:48] VITALS: BP 110/77
--- NOTE | 2024-05-11 12:09 | EKG ---
Test Date: 2024-05-07 Test Time: 19:47:34 Treatment Plant Operator: JOSÉ MEASUREMENT RESULTS: Intervals: Rate: 56 NV: 140 QRSD: 84 QT: 422 QTc: 407 Mcdonald: P: 21 NV: 140 QRS: 38 T: 36 INTERPRETIVE STATEMENTS: Sinus bradycardia Otherwise normal ECG Compared to ECG 07/25/2021 11:07:27 Sinus rhythm no longer present Myocardial infarct finding no longer present Electronically Signed On 05-11-24 12:06:43 [employer] RECEPTIONIST by Telly Gamble
== END 2024-05-07 23:43 | disposition home or self-care (01) ==
LOC: ER 18:34
DX: G43.109 Migraine with aura, not intractable, without status migrainosus (principal); R11.2 Nausea with vomiting, unspecified; I10 Essential (primary) hypertension; Z11.52 Encounter for screening for COVID-19
CPT/HCPCS: 96361; 93005; 85025; 81001; 80048; 36415; 83735; 85610; 80076; 84484; 83880; 87804 ×2; 70450; 71045; 96375; 96374; 99284; 87811; J2765; J1200; J7030

== ENCOUNTER 2024-06-16 18:58 | Emergency (ER) | payer OTHER ==
--- OUTSIDE RECORDS SUMMARY | 2024-06-16 19:01 | XMS REPORT | Continuity of Care Document ---
Author Name Unknown Address [address] [facility] [address] [place] [address] [facility] Address [address] [facility] [place] [address] Care Team Providers Care Copywriting Intern Name Role Phone Hicks, Enrique Thelma Attending Clinician Unavailable Problems Condition Name Condition Details Condition Category Status Onset Date Resolution Date Last Treatment Date Treating Clinician Comments Source Migraine with aura Migraine with aura Problem [facility] Migraine without aura, not refractory Migraine without aura and without status migrainosu s, not intractabl e Problem [facility] [id number] Peptic ulcer, site unspecifie d, unspecifie d as acute or chronic, without hemorrhage or perforatio n Problem Active [facility] [id number] History of arthroplas ty of left knee Problem Active [facility] [id number] Deaf mutism, acquired Problem Active [facility] [id number] Fatty liver Problem Active [facility] [id number] Acute pain of left shoulder Problem [facility] [id number] Mixed hyperlipid emia Problem [facility] Social History Social Habit Start Date Stop Date Quantity Comments Source History of Tobacco Use [facility] Sex Assigned At [facility] Smoking Status Start Date Stop Date Source Never Smoker [facility] Former Smoker 2024-03-09 00:00:00 2024-03-09 00:00:00 [facility] Medications Ordered Medication Name Filled Medication Name Start Date Stop Date Current Medication? Ordering Clinician Indication Dosage Frequency Signature (SIG) Comments Components Source Imitrex 50 MG Imitrex 50 MG 2023-07 00:00: 00 No Imitrex 50 MG Ketorolac 15mg Ketorolac 15mg 2023-07 00:00: 00 No 60mg [facility] Lidocaine Lidocaine 03-14 00:00: 00 No 5mL [facility] Kenalog (Triamcinol one) Kenalog (Triamcinol one) 11-10 00:00: 00 No 40mg [facility] Ondansetron 8 MG Ondansetron 8 MG No 1{table t__ e_sanjivu e_and_a llow_to _dissol ve_as_n eeded} QID Ondansetro n 8 MG Ketorolac Tromethamin e 10 MG Ketorolac Tromethamin e 10 MG No QID Ketorolac Tromethami ne 10 MG Immunizations Ordered Immunization Name Filled Immunization Name Date Status Comments Source Fluzone Fluzone 2019-09-16 13:46:00 Completed [facility] Fluzone Fluzone 2019-09-16 13:46:00 Completed [facility] Fluzone Fluzone 2019-09-16 00:00:00 Completed [facility] Fluarix (IIV4) - SDS - 0.5mL Fluarix (IIV4) - SDS - 0.5mL Unknown Completed [facility] Fluzone Fluzone Unknown Completed [facility] Fluarix (IIV4) - SDS - 0.5mL Fluarix (IIV4) - SDS - 0.5mL Unknown Completed [facility] Fluzone Fluzone Unknown Completed [facility] Fluarix (IIV4) - SDS - 0.5mL Fluarix (IIV4) - SDS - 0.5mL Unknown Completed [facility] Fluzone Fluzone Unknown Completed [facility] Fluarix (IIV4) - SDS - 0.5mL Fluarix (IIV4) - SDS - 0.5mL Unknown Completed [facility] Fluzone Fluzone Unknown Completed [facility] Fluarix (IIV4) - SDS - 0.5mL Fluarix (IIV4) - SDS - 0.5mL Unknown Completed [facility] Fluzone Fluzone Unknown Completed [facility] Fluarix Fluarix Unknown Completed [facility] Fluzone Fluzone Unknown Completed [facility] Vital Signs Vital Name Observation Time Observation Value Comments S ource height 2024-06-12 09:40:00 69 [in_i] Commo n [facility] weight 2024-06-12 09:40:00 176 [lb_av] Comm on [facility] temperature 2024-06-12 09:40:00 97.3 [degF] Com mon [facility] bmi 2024-06-12 09:40:00 25.99 kg/m2 Comm on [facility] oximetry 2024-06-12 09:40:00 100 % Commo n [facility] respiratory rate 2024-06-12 09:40:00 18 /min [facility] blood pressure systolic 2024-06-12 09:40:00 123 mm[Hg] [facility] blood pressure diastolic 2024-06-12 09:40:00 59 mm[Hg] [facility] height 2023-04-08 08:40:00 69 [in_i] Commo n [facility] weight 2023-04-08 08:40:00 177.0 [lb_av] Co on [facility] temperature 2023-04-08 08:40:00 97.5 [degF] Com [facility] bmi 2023-04-08 08:40:00 26.14 kg/m2 Comm on [facility] oximetry 2023-04-08 08:40:00 98 % Commo n [facility] respiratory rate 2023-04-08 08:40:00 18 /min Common [facility] blood pressure systolic 2023-04-08 08:40:00 117 mm[Hg] Common [facility] blood pressure diastolic 2023-04-08 08:40:00 67 mm[Hg] Common [facility] height 2023-03-14 08:30:00 69 [in_i] Commo n [facility] weight 2023-03-14 08:30:00 178.0 [lb_av] Co [facility] temperature 2023-03-14 08:30:00 98.0 [degF] Com [facility] bmi 2023-03-14 08:30:00 26.28 kg/m2 Comm on [facility] oximetry 2023-03-14 08:30:00 97 % Commo n [facility] respiratory rate 2023-03-14 08:30:00 17 /min Common [facility] blood pressure systolic 2023-03-14 08:30:00 130 mm[Hg] Common [facility] blood pressure diastolic 2023-03-14 08:30:00 64 mm[Hg] Common [facility] height 2023-03-14 08:30:00 69 [in_i] Commo n [facility] weight 2023-03-14 08:30:00 178.0 [lb_av] Co mmon [facility] temperature 2023-03-14 08:30:00 98.0 [degF] Com [facility] bmi 2023-03-14 08:30:00 26.28 kg/m2 Comm on [facility] oximetry 2023-03-14 08:30:00 97 % Commo n [facility] respiratory rate 2023-03-14 08:30:00 17 /min Common [facility] blood pressure systolic 2023-03-14 08:30:00 130 mm[Hg] Common [facility] blood pressure diastolic 2023-03-14 08:30:00 64 mm[Hg] [facility] height 2023-03-14 10:00:00 69 [in_i] Commo n [facility] weight 2023-03-14 10:00:00 178 [lb_av] Comm on [facility] temperature 2023-03-14 10:00:00 98.0 [degF] Com [facility] bmi 2023-03-14 10:00:00 26.28 kg/m2 Comm on [facility] blood pressure systolic 2023-03-14 10:00:00 130 mm[Hg] Common [facility] blood pressure diastolic 2023-03-14 10:00:00 80 mm[Hg] Common [facility] height 2021-12-28 08:00:00 69 [in_i] Commo n [facility] weight 2021-12-28 08:00:00 183.7 [lb_av] Co [facility] temperature 2021-12-28 08:00:00 97.9 [degF] Com [facility] bmi 2021-12-28 08:00:00 27.12 kg/m2 Comm on [facility] oximetry 2021-12-28 08:00:00 99 % Commo n [facility] respiratory rate 2021-12-28 08:00:00 18 /min [facility] blood pressure systolic 2021-12-28 08:00:00 115 mm[Hg] [facility] blood pressure diastolic 2021-12-28 08:00:00 68 mm[Hg] [facility] height 2021-12-28 08:00:00 69 [in_i] Commo n [facility] weight 2021-12-28 08:00:00 183.7 [lb_av] Co mmon [facility] temperature 2021-12-28 08:00:00 97.9 [degF] Com mon [facility] bmi 2021-12-28 08:00:00 27.12 kg/m2 Comm on [facility] oximetry 2021-12-28 08:00:00 99 % Commo n [facility] respiratory rate 2021-12-28 08:00:00 18 /min [facility] blood pressure systolic 2021-12-28 08:00:00 115 mm[Hg] [facility] blood pressure diastolic 2021-12-28 08:00:00 68 mm[Hg] [facility] Encounters Start Date/Time End Date/Time Encounter Type Admission Type Attending [facility] Care Facility Care Department Encounter ID Source 2024-03-06 11:59:00 Outpatient [facility] [id number] [facility] 2023-03-14 12:49:00 Outpatient [facility] [id number] [facility] 2023-03-13 11:05:00 Outpatient [facility] [id number] [facility] 2023-03-12 09:53:00 [facility] [id number] [facility] 2023-03-05 15:01:00 Outpatient Hicks, Enrique STLMLC STLMLC [id number] [facility] 2023-02-19 08:49:00 Outpatient Hicks, Enrique STLMLC STLMLC [id number] [facility] 2023-02-18 07:49:00 Outpatient Hicks, Enrique STLMLC STLMLC [id number] [facility] 2023-02-11 10:47:00 Outpatient Hicks, Enrique STLMLC STLMLC [id number] [facility] 2022-12-20 13:43:00 Outpatient Hicks, Enrique STLMLC STLMLC [id number] [facility] 2021-12-28 07:37:00 Outpatient Hicks, Enrique STLMLC STLMLC [id number] [facility] 2021-12-27 09:47:01 Outpatient Hicks, Enrique STLMLC STLMLC [id number] [facility] 2021-07-26 13:04:39 Outpatient Hicks, Enrique STLMLC STLMLC [id number] [facility] 2021-07-26 12:58:58 Outpatient Hicks, Enrique STLMLC STLMLC [id number] [facility] 2021-07-26 11:48:10 Outpatient Hicks, Enrique STLMLC STLMLC [id number] [facility] 2021-07-26 11:19:50 Outpatient Hicks, Enrique STLMLC STLMLC [id number] [facility] 2021-07-26 11:19:37 Outpatient Hicks, Enrique STLMLC STLMLC [id number] [facility] 2021-07-26 11:19:29 Outpatient Hicks, Enrique STLMLC STLMLC [id number] [facility] 2021-07-26 11:12:34 Outpatient Enrique Hicks STLMLC STLMLC [id number] [facility] 2024-06-12 00:00:00 2024-06-12 00:00:00 OFFICE VISIT ESTAB PT LEVEL 4 STLMLC STLMLC [id number] [facility] 2024-06-12 00:00:00 2024-06-12 00:00:00 (TEL) STLMLC STLMLC [id number] [facility] 2024-06-04 00:00:00 2024-06-04 00:00:00 (TEL) STLMLC STLMLC [id number] [facility] 2024-05-22 00:00:00 2024-05-22 00:00:00 (TEL) STLMLC STLMLC [id number] [facility] 2023-04-08 00:00:00 2023-04-08 00:00:00 OFFICE VISIT ESTAB PT LEVEL 3 STLMLC STLMLC [id number] [facility] 2023-03-14 00:00:00 2023-03-14 00:00:00 OFFICE VISIT ESTAB PT LEVEL 3 STLMLC STLMLC [id number] [facility] 2023-03-14 00:00:00 2023-03-14 00:00:00 SUB ANNUAL [facility] WELLNESS VISIT STLMLC STLMLC [id number] [facility] 2023-03-14 00:00:00 2023-03-14 00:00:00 OFFICE VISIT NEW PT LEVEL 3 STLMLC STLMLC [id number] [facility] 2023-02-07 00:00:00 2023-02-07 00:00:00 (TEL) STLMLC STLMLC [id number] [facility] 2022-12-21 00:00:00 2022-12-21 00:00:00 (TEL) STLMLC STLMLC [id number] [facility] 2022-12-03 13:21:04 2022-12-03 13:21:04 Outpatient [facility] [id number] Eric Rodarte 2021-12-28 00:00:00 2021-12-28 00:00:00 (TEL) STLMLC STLMLC [id number] [facility] 2021-12-28 00:00:00 2021-12-28 00:00:00 SUB ANNUAL [facility] WELLNESS VISIT STLMLC STLMLC [id number] [facility] 2021-12-28 00:00:00 2021-12-28 00:00:00 OFFICE VISIT EST PT LEVEL 3 STLMLC STLMLC [id number] [facility] 2021-12-13 00:00:00 2021-12-13 00:00:00 (TEL) STLMLC STLMLC [id number] [facility] 2020-11-15 00:00:00 2020-11-15 00:00:00 Outpatient STLMLC STLMLC [id number] [facility] 2020-03-22 00:00:00 2020-03-22 00:00:00 Outpatient STLMLC STLMLC [id number] [facility] 2019-12-01 16:30:00 2019-12-01 16:30:[address] [facility] [id number] [facility] 2019-11-11 14:30:00 2019-11-11 14:30:[address] [facility] [id number] [facility] 2019-11-10 14:07:00 2019-11-10 14:07:[address] [facility] [facility] [id number] [facility] 2019-10-28 14:30:00 2019-10-28 14:30:[address] [facility] [facility] [id number] [facility] 2019-10-28 14:30:00 2019-10-28 14:30:00 [facility] [id number] [facility] 2019-09-16 13:30:00 2019-09-16 13:30:[address] [facility] [facility] [id number] [facility] 2019-08-25 15:15:00 2019-08-25 15:15:[address] [facility] [facility] [id number] [facility] 2018-03-25 10:30:00 2018-03-25 10:30:00 [facility] [id number] [facility] 2018-03-21 11:16:00 2018-03-21 11:16:00 [facility] [id number] [facility] 2018-03-20 11:23:00 2018-03-20 11:23:00 [facility] [id number] [facility] 2018-03-11 09:45:00 2018-03-11 09:45:00 [facility] [id number] [facility] 2018-02-28 09:30:00 2018-02-28 09:30:[address] [facility] [id number] [facility] 2017-12-12 11:00:00 2017-12-12 11:00:[address] [facility] [facility] [id number] [facility] 2017-10-31 13:30:00 2017-10-31 13:30:[address] [facility] [facility] [id number] [facility] Results Test Description Test Time Test Comments Results Result Co mments Source
[2024-06-16] MEDS ORDERED: KETOROLAC 30 MG/ML INJ ONE (20:39)
[2024-06-16] MEDS ORDERED: METOCLOPRAMIDE 10 MG/2mL INJ ONE (20:40)
[2024-06-16] MEDS ORDERED: DIPHENHYDRAMINE 50 MG/ML VIAL ONE (20:41)
[2024-06-16] MEDS ORDERED: NA CHLORIDE 0.9% 1,000 ML ONE (20:43)
[2024-06-16 21:08] LABS: Absolute Lymphocytes (CBC) 1.4 K/uL (0.7-4.9); Absolute Monocytes 0.5 K/uL (0.1-1.3); Absolute Neutrophil 6.5 K/uL (1.8-8.0); Basophils % 0.2 % (0-1.3); Eosinophils % 0.3 % (0-4.4); Hematocrit 47.1 % (39.6-49.0); Hemoglobin 15.9 g/dL (13.6-17.9); Lymphocytes % 16.9 % (15.3-44.8); MCH 30.8 pg (27.0-35.0); MCHC 33.8 g/dL (32.0-36.0); MCV 91.4 fL (80-100); MPV 8.7 fL (7.6-11.3); Monocytes % 6.4 % (3.3-12.3); Neutrophils % 76.2 % (41.7-73.7); Nucleated Red Blood Cells % 0.2 % (0-0); Platelets 230 thou/uL (152-406); RBC Red Blood Cell Count 5.16 M/uL (4.33-5.43); Red Cell Distribution Width 12.9 % (12.1-15.2)
--- NOTE | 2024-06-16 21:12 | RAD REPORT ---
EXAM: CT brain without contrast HISTORY: Headache COMPARISON: May 2024 TECHNIQUE: Multiple contiguous axial images were obtained and a CT of the brain without contrast.. Sagittal and coronal reconstruction performed. Automated exposure control, adjustment of the mA and/or kV according to patient size, and/or iterative reconstruction. Unless otherwise specified, incidental f indings do not require dedicated imaging follow-up FINDINGS: An intracranial bleed is not seen Ventricles are normal caliber No extra-axial fluid collection noted No significant hypodensity within the brain. Small cerebral calcifications unchanged. No surrounding edema. These may be secondary to prior infection. No fluid within the visualized sinuses or mastoids noted. IMPRESSION: No acute intracranial abnormality noted. If the patient continues to have symptoms to suggest an acute intracranial abnormality then MRI of th e brain would be recommended.
[2024-06-16 21:27] LABS: ALT/SGPT 22 U/L (16-61); AST/SGOT 13 U/L (15-37); Albumin 4.1 g/dL (3.4-5.0); Albumin/Globulin Ratio 1.1 (1.1-1.8); Alkaline Phosphatase 102 U/L (45-117); Anion Gap 6.8 mEq/L (5.0-15.0); BUN Blood Urea Nitrogen 16 mg/dL (7-18); Bicarbonate 30 mEq/L (21-32); Bilirubin Total 0.4 mg/dL (0.2-1.0); Globulin 3.7 g/dL (2.3-3.5); Glomerular Filtration Rate 76 ml/min (=/>90); Glucose Level 104 mg/dL (74-106); NT PRO-BNP 29 pg/mL (<125); Potassium 3.8 mEq/L (3.5-5.1); Protein, Total 7.8 g/dL (6.4-8.2); Sodium Level 139 mEq/L (136-145); Troponin High Sensitivity 5.1 pg/mL (<58.9)
[2024-06-16 21:46] LABS: Bilirubin Direct < 0.2 mg/dL (0-0.2); Bilirubin Indirect, Calculated 0.2 mg/dL (0.2-0.8)
[2024-06-17] MEDS ORDERED: ACETAMINOPHEN 500 MG TAB ONE (00:01)
[2024-06-17] MEDS ORDERED: TRAMADOL HCL 50 MG TAB ONE (00:01)
--- NOTE | 2024-06-17 00:45 | ER ---
Nurse's Notes [facility] Name: Wanda Wies Age: 44 yrs Sex: Male : 1980 Arrival Date: 06/16/2024 Time: 18:58 Bed 4 Private MD: Diagnosis: Migraine without aura, not intractable;Atypical Migraine headache Presentation: 06/16 19:28 Chief complaint: Patient states: dizzy, heavy feeling in head, headache. Feels like tm6 something is moving in my head. I feel anxious, have thrown up twice today. Started today. Yesterday I took sumatriptan for my migraine, but this feels different than my migraine. Coronavirus screen: Client denies travel out of the [place] in the last 14 days. Ebola Screen: Patient negative for fever greater than or equal to 101.5 degrees Fahrenheit, and additional compatible Ebola Virus Disease symptoms Patient denies exposure to infectious person. Patient denies travel to an Ebola-affected area in the 21 days before illness onset. No symptoms or risks identified at this time. Risk Assessment: Do you want to hurt yourself or someone else? Patient reports no desire to harm self or others. Onset of symptoms was June 16, 2024. 19:28 Method Of Arrival: Ambulatory tm6 19:28 Acuity: AALIYAH 3 tm6 19:32 Initial Sepsis Screen: Does the patient meet any 2 criteria? No. Patient's initial tm6 sepsis screen is negative. Does the patient have a suspected source of infection? No. Patient's initial sepsis screen is negative. Triage Assessment: 19:31 Headache History: The patient has had previous headaches. General: Appears in no tm6 apparent distress. Behavior is calm, cooperative. Pain:. 19:32 Pain: Complains of pain in head Pain currently is 10 out of 10 on a pain scale. Quality tm6 of pain is described as aching, heavy, pressure, Pain began 1 day ago. Also complains of nausea. EENT: No signs and/or symptoms were reported regarding the EENT system. Neuro: Level of Consciousness is awake, alert, obeys commands, Oriented to person, place, time, situation, Reports dizziness, since today headache since yesterday. Cardiovascular: Patient's skin is warm and dry. Respiratory: Airway is patent Respiratory effort is even, unlabored, Respiratory pattern is regular, symmetrical. GI: Abdomen is flat, non-distended, Reports nausea, vomiting. : No signs and/or symptoms were reported regarding the genitourinary system. Derm: No signs and/or symptoms reported regarding the dermatologic system. Musculoskeletal: No signs and/or symptoms reported regarding the musculoskeletal system. Historical: - Allergies: 19:31 No Known Allergies; tm6 - PMHx: 19:31 HEARING IMPAIRED; Hypertensive disorder; tm6 19:31 Migraine; tm6 - PSHx: 19:31 None; tm6 - Immunization history:: Flu vaccine is not up to date. - Infectious Disease History:: Denies. - Social history:: Smoking status: Patient denies any tobacco usage or history of. - Family history:: not pertinent. Screenin:23 [facility] ED Fall Risk Assessment (Adult) History of falling in the last 3 months, aa10 including since admission No falls in past 3 months (0 pts) Confusion or Disorientation No (0 pts) Intoxicated or Sedated No (0 pts) Impaired Gait No (0 pts) Mobility Assist Device Used No (0 pt) Altered Elimination No (0 pt) Score/Fall Risk Level 0 - 2 = Low Risk. Abuse screen: Denies threats or abuse. Denies injuries from another. Nutritional screening: No deficits noted. Tuberculosis screening: No symptoms or risk factors identified. Assessment: 21:19 General: Appears Behavior is calm, cooperative, appropriate for age, quiet, Smells of aa10 Reports Denies fever, chills. Pain: Complains of pain in face Pain does not radiate. Pain currently is 6 out of 10 on a pain scale. Quality of pain is described as aching, throbbing, Pain began 1 day ago. Is continuous, Alleviated by medications, rest, Aggravated by increased activity. Neuro: No deficits noted. Level of Consciousness is Oriented to person, place, time, situation, Appropriate for age Speech ASL. Cardiovascular: No deficits noted. Capillary refill < 3 seconds. Respiratory: No deficits noted. Airway is patent. 23:01 Reassessment: Patient and/or family updated on plan of care and expected duration. Pain br2 level reassessed. Patient is alert, oriented x 3, equal unlabored respirations, skin warm/dry/pink. PT RESTING IN BED WITH NO SIGNS OF DISTRESS NOTED. Vital Signs: 19:32 BP 133 / 80; Pulse 69; Resp 18; Temp 98.7(O); Pulse Ox 99% on R/A; MAP 96 mmHg; Weight tm6 80.29 kg; Height 5 ft. 9 in. ; Pain 10/10; 21:19 BP 133 / 86; Pulse 97; Resp 20 S; Pulse Ox 99% on R/A; aa10 23:01 BP 111 / 73; Pulse 58; Resp 18; Pulse Ox 98% ; br2 19:32 Body Mass Index 26.14 (80.29 kg, 175.26 cm) tm6 19:32 Pain Scale: Adult tm6 Adam Coma Score: 21:13 Eye Response: spontaneous(4). Motor Response: obeys commands(6). Verbal Response: sp4 oriented(5). Total: 15. 21:13 Eye Response: spontaneous(4). Motor Response: obeys commands(6). Verbal Response: sp4 oriented(5). Total: 15. ED Course: 19:06 Patient arrived in ED. im 19:31 Triage completed. tm6 19:31 Arm band placed on left wrist. tm6 20:04 Devin High MD is Attending Physician. sp4 20:36 CT Head Brain wo Cont In Process Unspecified. EDMS 21:02 Basic Metabolic Panel Sent. aa10 21:02 CBC with Diff Sent. aa10 21:02 LFT's Sent. aa10 21:02 NT PRO-BNP Sent. aa10 21:03 Troponin HS Sent. aa10 21:18 Pieter iMr, RN is Primary Nurse. aa10 21:23 Patient has correct armband on for positive identification. Allergy band placed. Fall aa10 risk band placed. Placed in gown. Bed in low position. Call light in reach. Side rails up X 1. Provided Education on: PLAN OF CARE. 21:23 Inserted saline lock: 20 gauge in left antecubital area, using aseptic technique. aa10 06/17 01:01 No provider procedures requiring assistance completed. IV discontinued, intact, br2 bleeding controlled, No redness/swelling at site. Pressure dressing applied. Administered Medications: 06/16 21:02 Drug: Ketorolac IVP 30 mg IVP once Route: IVP; Site: left antecubital; aa10 21:30 Follow up: Response: No adverse reaction br2 21:02 Drug: metoCLOPramide IVP 10 mg IVP once; over 1 to 2 minutes Route: IVP; Site: left aa10 antecubital; 22:00 Follow up: Response: No adverse reaction br2 21:02 Drug: diphenhydrAMINE IVP 25 mg IVP once Route: IVP; Site: left antecubital; aa10 22:00 Follow up: Response: No adverse reaction br2 21:02 Drug: NS 0.9% IV 1000 ml IV at 1 bolus Per protocol; to be given as a bolus over 60 aa10 minutes Route: IV; Rate: 1 bolus; Site: left antecubital; 06/17 01:00 Follow up: IV Status: Completed infusion; IV Intake: 1000ml br2 00:47 Drug: Acetaminophen PO 1000 mg PO once Route: PO; aa10 01:01 Follow up: Response: No adverse reaction br2 00:47 Not Given (Patient Refused): [id number] mg PO once aa10 Medication: 06/16 21:19 VIS not applicable for this client. aa10 Intake: 06/17 01:00 IV: 1000ml; Total: 1000ml. br2 Outcome: 00:44 Discharge ordered by . sp4 01:01 Discharged to home ambulatory, br2 01:01 Condition: good 01:01 Discharge instructions given to patient, Instructed on discharge instructions, follow up and referral plans. Demonstrated understanding of instructions, follow-up care, medications, Prescriptions given X 2, 01:04 Patient left the ED. br2 Signatures: Dispatcher [employer] EDDevin Dos Santos MD MD sp4 Jennifer Atkins Tawney RN RN tm6 Madison Garay RN RN br2 Pieter Mir RN RN aa10
--- NOTE | 2024-06-17 00:45 | EDPHYS ---
Physician Documentation [facility] Name: Wanda Wise Age: 44 yrs Sex: Male : 1980 Arrival Date: 06/16/2024 Time: 18:58 Bed 4 Private MD: ED Physician Devin High HPI: 06/16 20:04 This 44 yrs old Male presents to ER via Ambulatory with complaints of sp4 Headache, Dizziness. 06/17 03:51 44-year-old male who is hearing impaired also history of hypertension migraine. sp4 Presents with worsening global headache.. Patient reports headache started yesterday associated with dizziness feeling of heaviness also several episodes of vomiting. At home patient takes sumatriptan 50 mg tablet every 2 hours as needed migraine. Ondansetron 4 mg as needed nausea. Ketorolac 10 mg as needed headache. Patient states she took his sumatriptan at home but had no relief of migraine. No known drug allergies.. 03:54 Interview was done via the marketing/sales person of sign language. sp4 Historical: - Allergies: 06/16 19:31 No Known Allergies; tm6 - PMHx: 19:31 HEARING IMPAIRED; Hypertensive disorder; tm6 19:31 Migraine; tm6 - PSHx: 19:31 None; tm6 - Immunization history:: Flu vaccine is not up to date. - Infectious Disease History:: Denies. - Social history:: Smoking status: Patient denies any tobacco usage or history of. - Family history:: not pertinent. ROS: 06/17 03:51 Constitutional: Negative for fever, chills, and weight loss, positive for headache, sp4 positive for dizziness, positive for vomiting All other systems are negative, Exam: 03:51 Constitutional: This is a well developed, well nourished patient who is awake, alert, sp4 and in no acute distress. Head/Face: Normocephalic, atraumatic. Eyes: Pupils equal round and reactive to light, extra-ocular motions intact. Lids and lashes normal. Conjunctiva and sclera are not injected. Cornea within normal limits. Periorbital areas with no swelling, redness, or edema. ENT: Nares patent. No nasal discharge, no septal abnormalities noted. Tympanic membranes are normal and external auditory canals are clear. Oropharynx with no redness, swelling, or masses, exudates, or evidence of obstruction, uvula midline. Mucous membranes moist. Neck: Trachea midline, no thyromegaly or masses palpated, and no cervical lymphadenopathy. Supple, full range of motion without nuchal rigidity, or vertebral point tenderness. Chest/axilla: Normal chest wall appearance and motion. Nontender with no deformity. No lesions are appreciated. Cardiovascular: Regular rate and rhythm with a normal S1 and S2. No gallops, murmurs, or rubs. Normal PMI, no JVD. No pulse deficits. Respiratory: Lungs have equal breath sounds bilaterally, clear to auscultation and percussion. No rales, rhonchi or wheezes noted. No increased work of breathing, no retractions or nasal flaring. Abdomen/GI: Soft, with normal bowel sounds. No distension or tympany. No guarding or rebound. No evidence of tenderness throughout. Back: No spinal tenderness. No costovertebral tenderness. Skin: Warm, dry with normal turgor. Normal color with no rashes, no lesions, and no evidence of cellulitis. MS/ Extremity: Pulses equal, no cyanosis. Neurovascular intact. Full, normal range of motion. Neuro: Awake and alert, GCS 15, oriented to person, place, time, and situation. Cranial nerves II-XII grossly intact. Motor strength 5/5 in all extremities. Sensory grossly intact. Patient is hearing impaired. Psych: Awake, alert, with orientation to person, place and time. Behavior, mood, and affect are within normal limits 03:54 ECG was reviewed by the Attending Physician. EKG at 2112 reveals normal sinus rhythm sp4 normal EKG. Vital Signs: 12 19:32 BP 133 / 80; Pulse 69; Resp 18; Temp 98.7(O); Pulse Ox 99% on R/A; MAP 96 mmHg; Weight tm6 80.29 kg; Height 5 ft. 9 in. ; Pain 10/10; 21:19 BP 133 / 86; Pulse 97; Resp 20 S; Pulse Ox 99% on R/A; aa10 23:01 BP 111 / 73; Pulse 58; Resp 18; Pulse Ox 98% ; br2 19:32 Body Mass Index 26.14 (80.29 kg, 175.26 cm) tm6 19:32 Pain Scale: Adult tm6 Adam Coma Score: 21:13 Eye Response: spontaneous(4). Motor Response: obeys commands(6). Verbal Response: sp4 oriented(5). Total: 15. 21:13 Eye Response: spontaneous(4). Motor Response: obeys commands(6). Verbal Response: sp4 oriented(5). Total: 15. MDM: 20:06 Medical Screening Exam initiated sp4 21:13 Differential diagnosis: cluster headache, migraine, tension headache, vasomotor sp4 headache. ED course: Headache has improved in ER. Patient has unremarkable workup. Stable for discharge home.. 06/17 00:40 Data reviewed: vital signs, nurses notes, lab test result(s), radiologic studies, CT sp4 scan. 03:56 ED course: EXAM: CT brain without contrast HISTORY: Headache COMPARISON: May 2024 sp4 TECHNIQUE: Multiple contiguous axial images were obtained and a CT of the brain without contrast.. Sagittal and coronal reconstruction performed. Automated exposure control, adjustment of the mA and/or kV according to patient size, and/or iterative reconstruction. Unless otherwise specified, incidental findings do not require dedicated imaging follow-up FINDINGS: An intracranial bleed is not seen Ventricles are normal caliber No extra-axial fluid collection noted No significant hypodensity within the brain. Small cerebral calcifications unchanged. No surrounding edema. These may be secondary to prior infection. No fluid within the visualized sinuses or mastoids noted. IMPRESSION: No acute intracranial abnormality noted. If the patient continues to have symptoms to suggest an acute intracranial abnormality then MRI of the brain would be recommended. . 06/16 20:07 Order name: Basic Metabolic Panel; Complete Time: 22:50 sp4 06/16 20:07 Order name: CBC with Diff; Complete Time: 22:50 sp4 06/16 20:07 Order name: LFT's; Complete Time: 22:50 sp4 06/16 20:07 Order name: NT PRO-BNP; Complete Time: 22:50 sp4 06/16 20:07 Order name: Troponin HS; Complete Time: 22:50 sp4 06/16 19:59 Order name: CT Head Brain wo Cont; Complete Time: 22:50 rn 06/16 20:07 Order name: EKG; Complete Time: 20:08 sp4 06/16 20:07 Order name: Cardiac monitoring; Complete Time: 21: sp4 06/16 20:07 Order name: EKG - Nurse/Tech; Complete Time: 21: sp4 06/16 20:07 Order name: IV Saline Lock; Complete Time: 21: sp4 06/16 20:07 Order name: Labs collected and sent; Complete Time: 21: sp4 06/16 20:07 Order name: O2 Per Protocol; Complete Time: 21: sp4 06/16 20:07 Order name: O2 Sat Monitoring; Complete Time: : sp4 EC/17 21:13 Rate is 64 beats/min. Rhythm is regular, Normal Sinus Rhythm. QRS [place] is Normal. NE sp4 interval is normal. QRS interval is normal. QT interval is normal. No Q waves. T waves are Normal. No ST changes noted. Clinical impression: Normal ECG. Interpreted by me. Reviewed by me. Administered Medications: 21:02 Drug: Ketorolac IVP 30 mg IVP once Route: IVP; Site: left antecubital; aa10 21:30 Follow up: Response: No adverse reaction br2 21:02 Drug: metoCLOPramide IVP 10 mg IVP once; over 1 to 2 minutes Route: IVP; Site: left aa10 antecubital; 22:00 Follow up: Response: No adverse reaction br2 21:02 Drug: diphenhydrAMINE IVP 25 mg IVP once Route: IVP; Site: left antecubital; aa10 22:00 Follow up: Response: No adverse reaction br2 21:02 Drug: NS 0.9% IV 1000 ml IV at 1 bolus Per protocol; to be given as a bolus over 60 aa10 minutes Route: IV; Rate: 1 bolus; Site: left antecubital; 06/17 01:00 Follow up: IV Status: Completed infusion; IV Intake: 1000ml br2 00:47 Drug: Acetaminophen PO 1000 mg PO once Route: PO; aa10 01:01 Follow up: Response: No adverse reaction br2 00:47 Not Given (Patient Refused): [id number] mg PO once aa10 Disposition Summary: 06/17/24 00:44 Discharge Ordered Notes: Location: Home sp4 Problem: new sp4 Symptoms: have improved sp4 Condition: Stable sp4 Diagnosis - Migraine without aura, not intractable sp4 - Atypical Migraine headache sp4 Followup: sp4 - With: Private Physician - When: 7 - 10 days - Reason: Recheck today's complaints Discharge Instructions: - Discharge Summary Sheet sp4 - Migraine Headache, [id number] sp4 Forms: - Patient Portal Instructions sp4 Prescriptions: - Fioricet 50-300-40 mg Oral capsule - take 1 capsule ORAL route every 6 hours PRN headache; 30 capsule; Refills: 0, sp4 Product Selection Permitted - tramadol 100 mg Oral tablet - take 1 tablet ORAL route every 8 hours PRN headaches; 20 tablet; Refills: 0, sp4 Product Selection Permitted Signatures: Dispatcher [employer] EDDevin Dos Santos MD MD sp4 José Miguel Denise RN RN tm6 Pieter Mir RN RN aa10 Madison Garay RN br2 Corrections: (The following items were deleted from the chart) 06/16 20:08 20:08 BASIC METABOLIC PANEL+C.LAB.BRZ ordered. EDMS EDMS 20:08 20:08 CBC+H.LAB.BRZ ordered. EDMS EDMS 20:08 20:08 HEPATIC FUNCTION+C.LAB.BRZ ordered. EDMS EDMS 20:08 20:08 PROBNP+C.LAB.BRZ ordered. EDMS EDMS 20:08 20:08 Troponin High Sensitivity+C.LAB.BRZ ordered. EDMS EDMS
[2024-06-17 01:15] VITALS: TEMP 98.7
[2024-06-17 01:19] VITALS: BP 111/73; O2SAT 98
--- NOTE | 2024-06-18 11:29 | EKG ---
Test Date: 2024-06-16 Test Time: 21:13:29 Electric Powerline Examiner: BECKA MEASUREMENT RESULTS: Intervals: Rate: 64 KS: 126 QRSD: 86 QT: 402 QTc: 414 [place]: P: 13 KS: 126 QRS: 6 T: 32 INTERPRETIVE STATEMENTS: Normal sinus rhythm Normal ECG Compared to ECG 05/07/2024 19:47:34 Sinus bradycardia no longer present Electronically Signed On 06-18-24 11:27:50 [employer] by Telly Gamble
== END 2024-06-17 01:04 | disposition home or self-care (01) ==
LOC: ER 18:58
DX: G43.009 Migraine without aura, not intractable, without status migrainosus (principal); R42 Dizziness and giddiness; I10 Essential (primary) hypertension; H91.90 Unspecified hearing loss, unspecified ear
CPT/HCPCS: 96361; 93005; 85025; 80048; 36415; 80076; 84484; 83880; 70450; 96375; 96374; 99284; J2765; J1200; J7030